=== PATIENT | male | born 1930 | race Caucasian/White ===

== ENCOUNTER 2018-04-22 10:43 | Inpatient (IN) | payer MEDICARE ==
[~2018-04-22] VITALS: Ht 172.7 cm; Wt 83.8 kg
[~2018-04-22 10:43] MED LIST: ALBU90OI6 INH; ALBU90OI61 INH; ALLO100; ALLO300 PO; ASCO500 PO; ASPI325; ASPI325 PO; ASPI81CH PO; ATEN25; ATEN50 PO; ATENOL; ATOR40TA PO; BUPR150T2; BUPR75; CHOL10002; CLOP75; DIPH50 PO; DYRENIUM PO; ESOM20; EZET10-20 PO; HYDACE5 PO; LIDO5TP TOP; MEGARED OMEGA-1 EAC1 PO; METO50ER PO; METO5A PO; MONT10T PO; MULVIT; NIFE30ER PO; Norco 5-325 Ta1 EACH PO; PANT20 PO; PRED20 PO; RABE20; SIMV10; SPIR25 PO; VITAMIN D PO; VITB100 PO; WARF5 PO; ZOCOR; [UNRECOGNIZED DRUG - OTHER] PO; vytorin
[2018-04-22 11:46] LABS: BASOPHILS ABSOLUTE AUTO 0.03 K/mm3 (0.00-0.23); BASOPHILS PERCENT AUTO 0 % (0-2); EOSINOPHILS ABSOLUTE AUTO 0.02 K/mm3 (0.00-0.68); EOSINOPHILS PERCENT AUTO 0 % (0-6); Hematocrit 35.7 % (37.0-53.0); Hemoglobin 11.6 g/dL (13.5-17.5); IMMATURE GRAN ABSOLUTE AUTO 0.07 K/mm3 (0.00-0.10); IMMATURE GRAN PERCENT AUTO 0 % (0-1); LYMPHOCYTES ABSOLUTE AUTO 0.91 K/mm3 (0.84-5.20); LYMPHOCYTES PERCENT AUTO 5 % (21-46); MONOCYTES ABSOLUTE AUTO 1.11 K/mm3 (0.16-1.47); MONOCYTES PERCENT AUTO 6 % (4-13); Mean Corpuscular HGB Conc 32.5 g/dL (31.5-36.5); Mean Corpuscular Volume 99 fL (80-100); Mean Platelet Volume 10.2 fL (9.1-12.4); NEUTROPHILS ABSOLUTE AUTO 15.51 K/mm3 (1.96-9.15); NEUTROPHILS PERCENT AUTO 88 % (41-73); Platelet Count 267 K/mm3 (150-400); RDW Standard Deviation 50.7 fL (35.1-46.3); Red Blood Cell Count 3.62 M/mm3 (4.30-5.90); White Blood Cell Count 17.65 K/mm3 (4.00-11.30)
[2018-04-22 11:59] LABS: Albumin, Blood 2.7 g/dL (3.4-5.0); Albumin/Globulin Ratio 0.8 (0.8-1.8); Bilirubin, Total 0.8 mg/dL (0.1-1.0); Bun/Creatinine Ratio 25.2 (12.0-20.0); Calcium, Blood 8.5 mg/dL (8.5-10.1); Creatinine, Blood 1.35 mg/dL (0.60-1.20); Globulin, Blood 3.3 g/dL (2.2-4.0); Potassium, Blood 4.3 mmol/L (3.5-5.5)
[2018-04-22 14:35] LABS: Prothrombin Time Results 52.1 Sec (9.7-11.5)
[2018-04-22 14:43] LABS: International Normalized Ratio 5.57
--- NOTE | 2018-04-22 14:45 | NUR ---
1435 PT ADMITTED TO MEDICAL FLOOR VIA GURNEY. PT TRANSFERED TO BED WITH 1 ASSIST. IV CIPRO INFUSING. 1442 RECIEVED CRITICAL VALUE FROM LAB INR 5.57. CN NOTIFIED. DR. GILLETTE IS YET TO ROUND ON PT.
--- NOTE | 2018-04-22 17:00 | NUR ---
SHIFT SUMMARY. A&OX4, 1 ASSIST TO BSC WITH FWW OR CANE SECONDARY TO HIP PAIN AND WEAKNESS. PT IS YET TO HAVE BM, BED ALARM ON TO ASSESS IF PT CALLS APPROPRIATELY. BOWEL TONES HYPERACTIVE, AWAITING STOOL SAMPLE FOR GI PANEL. PLACED IN CONTACT ISOLATION TO RULE OUT CDIFF/NOROVIRUS. IV FLUIDS INITIATED, PT IS TO RECIEVED 2L NS WITH KCL. BLE +2 EDEMA, PT STATES THAT HE HAS NOT TAKEN ANY OF HIS MEDICATIONS FOR 2-3 DAYS. PT REPORTS TAKEN HIS MEDICATIONS WITH FOOD AND HE HAS NOT EATEN IN 2-3 DAYS. LUNGS CLEAR, NO SOB. NO N/V, PT TOLERATED WATER AND JELLO WITHOUT ISSUE. PT STATES THAT HE LIVES HOME ALONE WITH FAMILY THAT LIVE NEAR BY. CLOSEST RELATIVE IS STEP DAUGHTER THAT LIVES IN [place], [place].
[2018-04-22 20:38] LABS: Adenovirus F 40/41 Not Detected (NOT DETECT); Astrovirus Not Detected (NOT DETECT); Campylobacter Sp Not Detected (NOT DETECT); Cryptosporidium Not Detected (NOT DETECT); Cyclospora Cayetanensis Not Detected (NOT DETECT); E. Coli O157 Not Detected (NOT DETECT); Entamoeba Histolytica Not Detected (NOT DETECT); Enteroaggregative E. coli-EAEC Not Detected (NOT DETECT); Enteropathogenic E. coli-EPEC Not Detected (NOT DETECT); Enterotoxigenic E. coli-ETEC Not Detected (NOT DETECT); Giardia Lamblia Not Detected (NOT DETECT); Norovirus GI/GII Not Detected (NOT DETECT); Plesiomonas Shigelloides Not Detected (NOT DETECT); Rotavirus A Not Detected (NOT DETECT); Salmonella Sp Not Detected (NOT DETECT); Sapovirus Not Detected (NOT DETECT); Shiga Toxin-prod E. coli-STEC Not Detected (NOT DETECT); Shigella/Enteroin E. coli-EIEC Not Detected (NOT DETECT); Vibrio Cholerae Not Detected (NOT DETECT); Vibrio Sp Not Detected (NOT DETECT); Yersinia Enterocolitica Not Detected (NOT DETECT)
[2018-04-23 05:05] LABS: BASOPHILS ABSOLUTE AUTO 0.03 K/mm3 (0.00-0.23); BASOPHILS PERCENT AUTO 0 % (0-2); EOSINOPHILS ABSOLUTE AUTO 0.05 K/mm3 (0.00-0.68); EOSINOPHILS PERCENT AUTO 0 % (0-6); Hemoglobin 10.9 g/dL (13.5-17.5); IMMATURE GRAN ABSOLUTE AUTO 0.08 K/mm3 (0.00-0.10); IMMATURE GRAN PERCENT AUTO 1 % (0-1); LYMPHOCYTES ABSOLUTE AUTO 0.68 K/mm3 (0.84-5.20); LYMPHOCYTES PERCENT AUTO 5 % (21-46); MONOCYTES ABSOLUTE AUTO 0.88 K/mm3 (0.16-1.47); MONOCYTES PERCENT AUTO 6 % (4-13); Mean Corpuscular HGB 32.1 pg (26.0-34.0); Mean Corpuscular Volume 97 fL (80-100); NEUTROPHILS ABSOLUTE AUTO 13.44 K/mm3 (1.96-9.15); NEUTROPHILS PERCENT AUTO 89 % (41-73); Platelet Count 240 K/mm3 (150-400); RDW Coefficient Variation 13.8 % (11.7-14.2); RDW Standard Deviation 49.2 fL (35.1-46.3); White Blood Cell Count 15.16 K/mm3 (4.00-11.30)
[2018-04-23 05:23] LABS: Prothrombin Time Results 58.7 Sec (9.7-11.5)
--- NOTE | 2018-04-23 05:23 | NUR ---
SHIFT SUMMARY A/O X3, ABLE TO MAKE NEEDS KNOWN. COOPERATIVE WITH CARE. CALLS AND ANSWERS QUESTIONS APPROPRIATELY. NO C/O PAIN/DISCOMFORT. APPEARD TO REST OFF AND ON DURING SHIFT. FIELD START D/C'D; NEW IV START TO RFA. STATED FELT VERY ANXIOUS BEING IN THE HOSPITAL; HAS RECENTLY LOST HIS ; ALSO HAS A CAT AT HOME THAT HE WAS WORRIED ABOUT. PT NOTABLY SHAKING AT TIME OF ASSESSMENT. RECEIVED NEW ORDER FOR PO XANAX; APPEARED TO HELP SYMPTOMS. VSS/AFEBRILE; PULSE ELEVATED THIS AM. NO ACUTE CHANGES OVERNIGHT. BED IN LOWEST POSITION. CALL LIGHT AND BELONGINGS WITHIN REACH. WCTM. REPORT TO ONCOMING RN.
[2018-04-23 05:37] LABS: Anion Gap 9 mmol/L (6-16); Blood Urea Nitrogen 25 mg/dL (8-24); Bun/Creatinine Ratio 25.9 (12.0-20.0); CO2, Blood 29 mmol/L (21-32); Calcium, Blood 8.1 mg/dL (8.5-10.1); Chloride, Blood 99 mmol/L (98-108); Creatinine, Blood 0.97 mg/dL (0.60-1.20); Glomerular Filtration Rate >60 (60-); Glucose, Blood 109 mg/dL (70-99); Potassium, Blood 3.7 mmol/L (3.5-5.5); Sodium, Blood 137 mmol/L (136-145)
[2018-04-23 06:15] LABS: International Normalized Ratio 6.33
--- NOTE | 2018-04-23 06:44 | NUR ---
0615 NOTIFIED BY LAB OF CRITICAL VALUE FOR INR. ON-CALL PHYSICIAN MADE AWARE. ORDERS TO HOLD COUMADIN FOR TODAY.
--- NOTE | 2018-04-23 18:05 | NUR ---
PATIENT PERMISSION PATIENT GAVE VERBAL CONSENT FOR MARINE FIREMAN TO PROVIDE CARE ON 04/24/2018 FROM [phone].
--- NOTE | 2018-04-23 18:14 | NUR ---
SHIFT SUMMARY. A&OX4, 1 ASSIST TO BSC AND CHAIR WITH FWW, PT IS AWARE OF LIMITATIONS AND CALLS APPROPRIATELY. PT STARTED ON PO VANCO FOR POSITIVE CDIFF, IV CIPRO D/C'D, PT CONTINUES WITH IV FLAGYL, IV HYDRATION D/C'D. PT WITH HX OF ASTHMA REQUESTED ONE BREATHING TREATMENT, PT REPORTED IMPROVEMENT. PT REPORTS GOOD RELIEF OF PAIN FROM LIDODERM PATCH, PT REPORTS USING TOPICAL CREAM FOR PAIN MANAGEMENT OF L HIP. PT/OT ORDERED, NO EVAL TODAY. ONE EPISODE OF NAUSEA WITH SMALL AMOUNT OF EMESIS THIS AM, NAUSEA RELIEVED WITH PEPPERMINT TEA. NO OTHER CHANGES OR CONCERNS.
[2018-04-24 04:55] LABS: Prothrombin Time Results 66.1 Sec (9.7-11.5)
[2018-04-24 05:02] LABS: International Normalized Ratio 7.17
--- NOTE | 2018-04-24 05:10 | NUR ---
SHIFT SUMMARY PT ADMITTED FOR COLITIS. FULL CODE. CLEAR LIQUID DIET. CONTACT ISOLATION FOR C-DIFF +. 20G IV TO R FA. PT HAS PROBLIMATIC L HIP AND REPORTS IS SCHEDULED FOR SURGERY FOR REPAIR LATER THIS MONTH. 1 PERSON ASSIST WITH TRANSFER. THE PT LIVES ALONE, HAS NO FAMILY PER REPORT, AND THE PTS PAST AWAY FROM CANCER. THE PT APPEARS TO GET VERY ANXIOUS AT TIMES. HOWEVER, NON NOTED SO FAR THIS SHIFT. PER REPORT THE PT DID HAVE SOME NAUSEA YESTERDAY AM, WICH WAS RELIEVED WITH PEPERMINT TEA PER REPORT. NONE NOTED SO FAR THIS SHIFT. THE PT PRESENTED TO THE ED WITH C/O DIARRHEA X [address] SCAN SHOWED SIGNS OF COLITIS. GI PCR PANEL WAS POSITIVE FOR C-DIFF. THE PT SEEMED IRRITATED ABOUT HIS MEDICATIONS. THE PT STATED THAT THE ONES THEY HAVE HERE ARE NOT THE SAME AT WHAT HE TAKES AT HOME AND HE DOES NOT LIKE THAT. THE PT APPEARED TO SLEEP COMFORTABLY MOST OF THE NIGHT WITH NO APPARENT SIGNS OF ACUTE DISTRESS. THE PT IS UP AT THIS TIME USING THE BSC FOR BM. ABLE TO MAKE NEEDS KNOWN AND CALL LIGHT IN REACH.
[2018-04-24 06:12] LABS: BASOPHILS ABSOLUTE AUTO 0.02 K/mm3 (0.00-0.23); BASOPHILS PERCENT AUTO 0 % (0-2); EOSINOPHILS ABSOLUTE AUTO 0.11 K/mm3 (0.00-0.68); EOSINOPHILS PERCENT AUTO 1 % (0-6); Hematocrit 31.8 % (37.0-53.0); Hemoglobin 10.6 g/dL (13.5-17.5); IMMATURE GRAN ABSOLUTE AUTO 0.05 K/mm3 (0.00-0.10); IMMATURE GRAN PERCENT AUTO 0 % (0-1); LYMPHOCYTES ABSOLUTE AUTO 0.94 K/mm3 (0.84-5.20); LYMPHOCYTES PERCENT AUTO 6 % (21-46); MONOCYTES ABSOLUTE AUTO 1.01 K/mm3 (0.16-1.47); MONOCYTES PERCENT AUTO 6 % (4-13); Mean Corpuscular HGB 32.9 pg (26.0-34.0); Mean Corpuscular HGB Conc 33.3 g/dL (31.5-36.5); Mean Corpuscular Volume 99 fL (80-100); Mean Platelet Volume 10.5 fL (9.1-12.4); NEUTROPHILS ABSOLUTE AUTO 13.75 K/mm3 (1.96-9.15); NEUTROPHILS PERCENT AUTO 87 % (41-73); Platelet Count 248 K/mm3 (150-400); RDW Coefficient Variation 13.9 % (11.7-14.2); RDW Standard Deviation 50.5 fL (35.1-46.3); Red Blood Cell Count 3.22 M/mm3 (4.30-5.90); White Blood Cell Count 15.88 K/mm3 (4.00-11.30)
[2018-04-24 06:22] LABS: Anion Gap 7 mmol/L (6-16); Blood Urea Nitrogen 16 mg/dL (8-24); Bun/Creatinine Ratio 19.3 (12.0-20.0); CO2, Blood 29 mmol/L (21-32); Calcium, Blood 7.8 mg/dL (8.5-10.1); Chloride, Blood 101 mmol/L (98-108); Creatinine, Blood 0.83 mg/dL (0.60-1.20); Glomerular Filtration Rate >60 (60-); Glucose, Blood 100 mg/dL (70-99); Potassium, Blood 3.7 mmol/L (3.5-5.5); Sodium, Blood 137 mmol/L (136-145)
--- NOTE | 2018-04-24 17:41 | NUR ---
SUMMARY PT SITTING UP IN BED WATCHING TV, PT HAS BEEN COOPERATIVE WITH CARE T/O THE DAY, PT ABLE TO GET UP WITH 1PERSON ASSIST, IS VERY SLOW IN ALL HIS ADL'S, PT/OT HAVE WORKED WITH THE PT WELL, PT STILL HAVING LOOSE STOOLS, DR GILLETTE NOTIFIED OF THE PT'S INR THIS MORNING, ASPRIN HELD, NO NEW ORDERS, PT REPORTS HE DOES NOT WANT TO GO TO [facility] AT DISCHARGE BECAUSE HE WILL BE GOING NEXT MONTH AFTER HIS HIP SURGERY, PT REPORTED BEING AGREEABLE TO HOME HEALTH, WILL NOTIFY CARE MANAGEMENT/DISCHARGE PLANNING, NO ACUTE CHANGES, WILL CONT TO MONITOR
--- NOTE | 2018-04-24 18:49 | NUR ---
Mr. Foss was welcoming of visit. We had a long conversation about his who passed @1year ago. He was often tearful throughout conversation, but responded well to gentle addictions counselor assistant and grief education. He is trying to maintain his independance and is awaiting hip replacement. He feels well suppported by neighbors, but says he is very lonely and rarely goes out. We had an easy rapport. I prayed for Mr. Foss and offered continued support. I provided my card at his request. By end of visit, he appeared brighter and smiled easily. I will remain available.
--- NOTE | 2018-04-25 03:57 | NUR ---
SHIFT SUMMARY NO APPARENT ACUTE CHANGES NOTED SO FAR THIS SHIFT. THE PT CONTINUES TO HAVE MULTIPLE WATERY STOOLS AND HAD SEVERAL ACCIDENTS IN BED SO FAR THIS SHIFT. PT APPEARS TO BE HAVING A VERY DIFFICULT TIME MAKE IT TO THE BSC. THE PT IS WORRIED ABOUT HIS CAT. THE PT STATED THAT HE HAD SOMEONE WHO WAS GOING TO LOOK AFTER THE CAT BUT HE HAS NOT BEEN ABLE TO CONTACT THE PERSON DUE TO HIS PHONE BEING AND NOT HAVING A RISK ANALYST THAT WILL FIT. THE PT IS ANXIOUS TO GET HOME TO HIS CAT AND RETURN TO HIS LIFE. NO APPARENT SIGNS OF ACUTE DISTRESS. ABLE TO MAKE NEEDS KNOWN AND CALL LIGHT IN REACH.
[2018-04-25 05:04] LABS: BASOPHILS ABSOLUTE AUTO 0.02 K/mm3 (0.00-0.23); BASOPHILS PERCENT AUTO 0 % (0-2); EOSINOPHILS PERCENT AUTO 3 % (0-6); Hematocrit 32.4 % (37.0-53.0); Hemoglobin 10.7 g/dL (13.5-17.5); IMMATURE GRAN ABSOLUTE AUTO 0.04 K/mm3 (0.00-0.10); IMMATURE GRAN PERCENT AUTO 0 % (0-1); LYMPHOCYTES ABSOLUTE AUTO 1.16 K/mm3 (0.84-5.20); LYMPHOCYTES PERCENT AUTO 11 % (21-46); MONOCYTES ABSOLUTE AUTO 0.79 K/mm3 (0.16-1.47); MONOCYTES PERCENT AUTO 7 % (4-13); Mean Corpuscular HGB 31.8 pg (26.0-34.0); NEUTROPHILS ABSOLUTE AUTO 8.68 K/mm3 (1.96-9.15); NEUTROPHILS PERCENT AUTO 79 % (41-73); Platelet Count 255 K/mm3 (150-400); RDW Standard Deviation 49.7 fL (35.1-46.3); Red Blood Cell Count 3.36 M/mm3 (4.30-5.90); White Blood Cell Count 10.99 K/mm3 (4.00-11.30)
[2018-04-25 05:07] LABS: Mean Corpuscular Volume 96 fL (80-100)
[2018-04-25 05:22] LABS: Prothrombin Time Results 52.2 Sec (9.7-11.5)
[2018-04-25 05:24] LABS: International Normalized Ratio 5.59
[2018-04-25 05:35] LABS: Anion Gap 5 mmol/L (6-16); Blood Urea Nitrogen 17 mg/dL (8-24); Bun/Creatinine Ratio 19.4 (12.0-20.0); CO2, Blood 30 mmol/L (21-32); Calcium, Blood 7.8 mg/dL (8.5-10.1); Chloride, Blood 101 mmol/L (98-108); Creatinine, Blood 0.88 mg/dL (0.60-1.20); Glomerular Filtration Rate >60 (60-); Glucose, Blood 95 mg/dL (70-99); Sodium, Blood 136 mmol/L (136-145)
[2018-04-25] MEDS ORDERED: SACC250C PO (12:26)
[2018-04-25] MEDS ORDERED: POLY500 PO (12:26)
[2018-04-25] MEDS ORDERED: VANC125 PO (12:27)
--- NOTE | 2018-04-25 15:34 | NUR ---
SUMMARY/DISCHARGE PT BEING DISCHARGED TO HOME, PT VERBALIZED UNDERSTANDING OF DISCHARGE INSTRUCTIONS REGARDING MEDICATIONS AND FOLLOW UP APPOINTMENTS, PT WILL BE GETTING HOME HEALTH, CARE MANAGEMENT IS ARRANGING, [facility] HERE TO VESSEL TRAFFIC OFFICER THE PT VIA WHEELCHAIR
== END 2018-04-25 15:46 | disposition home health service (06) | DRG 373 ==
LOC: ER 10:43 → MEDS 13:54 → ENPENDDIS 04-25 11:14 → MEDS 04-25 15:46
PROVIDERS: Internal Medicine; ADMIT Hospitalist
DX: A04.72 Enterocolitis due to Clostridium difficile, not specified as recurrent (principal); I10 Essential (primary) hypertension; M10.9 Gout, unspecified; K21.9 Gastro-esophageal reflux disease without esophagitis; I48.91 Unspecified atrial fibrillation; E86.0 Dehydration; M16.12 Unilateral primary osteoarthritis, left hip; Z88.1 Allergy status to other antibiotic agents; Z88.5 Allergy status to narcotic agent; Z88.0 Allergy status to penicillin; Z88.8 Allergy status to other drugs, medicaments and biological substances; Z79.01 Long term (current) use of anticoagulants; Z79.82 Long term (current) use of aspirin; Z79.899 Other long term (current) drug therapy; Z95.5 Presence of coronary angioplasty implant and graft; Z95.1 Presence of aortocoronary bypass graft; Z87.891 Personal history of nicotine dependence
CPT/HCPCS: 36415; 74176; 80048; 80053; 83605; 85025; 85610; 87040; 87507; 94640; 94760; 96361; 96365; 96375; 97110; 97116; 97162; 97166; 97530; 97535; 99285-25; J0744; J3480; J7050; J7120

== ENCOUNTER → 2018-05-11 | Outpatient (CLI) | payer MEDICARE ==
[~2018-05-11] MED LIST changes: +POLY500 PO; +POTA20PAC PO; +Prozac20 MG PO; +SACC250C PO; +VANC125 PO
== END ==
LOC: LAB SHORT 17:29 → LAB 17:29
DX: R19.7 Diarrhea, unspecified (principal)
CPT/HCPCS: 87493

== ENCOUNTER 2018-05-13 13:23 | Emergency (ER) | payer MEDICARE ==
[~2018-05-13] VITALS: Ht 172.7 cm; Wt 81.7 kg
[~2018-05-13 13:23] MED LIST changes: -POTA20PAC PO; -Prozac20 MG PO
[2018-05-13 14:21] LABS: BASOPHILS ABSOLUTE AUTO 0.03 K/mm3 (0.00-0.23); BASOPHILS PERCENT AUTO 0 % (0-2); EOSINOPHILS ABSOLUTE AUTO 0.02 K/mm3 (0.00-0.68); EOSINOPHILS PERCENT AUTO 0 % (0-6); Hematocrit 33.8 % (37.0-53.0); Hemoglobin 11.2 g/dL (13.5-17.5); IMMATURE GRAN ABSOLUTE AUTO 0.09 K/mm3 (0.00-0.10); IMMATURE GRAN PERCENT AUTO 1 % (0-1); LYMPHOCYTES ABSOLUTE AUTO 1.09 K/mm3 (0.84-5.20); LYMPHOCYTES PERCENT AUTO 8 % (21-46); MONOCYTES ABSOLUTE AUTO 0.92 K/mm3 (0.16-1.47); MONOCYTES PERCENT AUTO 7 % (4-13); Mean Corpuscular HGB 32.9 pg (26.0-34.0); Mean Corpuscular HGB Conc 33.1 g/dL (31.5-36.5); Mean Corpuscular Volume 99 fL (80-100); NEUTROPHILS ABSOLUTE AUTO 11.66 K/mm3 (1.96-9.15); NEUTROPHILS PERCENT AUTO 84 % (41-73); Platelet Count 286 K/mm3 (150-400); RDW Coefficient Variation 14.7 % (11.7-14.2); RDW Standard Deviation 53.7 fL (35.1-46.3); White Blood Cell Count 13.81 K/mm3 (4.00-11.30)
[2018-05-13 14:46] LABS: Alanine Aminotransfer (ALT/SGP 30 U/L (12-78); Albumin, Blood 2.8 g/dL (3.4-5.0); Albumin/Globulin Ratio 0.7 (0.8-1.8); Alk Phos 125 U/L (50-136); Anion Gap 8 mmol/L (6-16); Aspartate Aminotrans (AST/SGOT 42 U/L (12-37); Bilirubin, Total 0.8 mg/dL (0.1-1.0); Blood Urea Nitrogen 35 mg/dL (8-24); Bun/Creatinine Ratio 32.7 (12.0-20.0); CO2, Blood 34 mmol/L (21-32); Calcium, Blood 8.4 mg/dL (8.5-10.1); Chloride, Blood 97 mmol/L (98-108); Creatinine, Blood 1.07 mg/dL (0.60-1.20); Globulin, Blood 3.9 g/dL (2.2-4.0); Glomerular Filtration Rate >60 (60-); Glucose, Blood 96 mg/dL (70-99); Potassium, Blood 2.7 mmol/L (3.5-5.5); Sodium, Blood 139 mmol/L (136-145); Total Protein, Blood 6.7 g/dL (6.4-8.2)
[2018-05-13] MEDS ORDERED: Prozac20 MG PO (14:48)
[2018-05-13 15:25] LABS: International Normalized Ratio 1.48; Prothrombin Time Results 15.1 Sec (9.7-11.5)
[2018-05-13] MEDS ORDERED: POTA20PAC PO (16:06)
== END 2018-05-13 16:15 | disposition home or self-care (01) ==
LOC: ER 13:23
PROVIDERS: Emergency Medicine; Physician Assistant
DX: E87.6 Hypokalemia (principal); E86.0 Dehydration; R19.7 Diarrhea, unspecified; I48.91 Unspecified atrial fibrillation; Z88.0 Allergy status to penicillin; Z88.8 Allergy status to other drugs, medicaments and biological substances; Z88.1 Allergy status to other antibiotic agents; Z88.5 Allergy status to narcotic agent; Z79.899 Other long term (current) drug therapy; Z79.82 Long term (current) use of aspirin; Z79.01 Long term (current) use of anticoagulants
CPT/HCPCS: 36415; 80053; 83735; 85025; 85610; 96360; 99284-25; J7030

== ENCOUNTER → 2018-05-30 | Outpatient (CLI) | payer MEDICARE ==
[~2018-05-30] MED LIST changes: +POTA20PAC PO; +Prozac20 MG PO
[2018-05-31 09:24] LABS: C DIFFICILE BY DNA AMP Positive (Negative)
== END | disposition home or self-care (01) ==
LOC: LAB 18:55 → LAB SHORT 18:55
PROVIDERS: Family Medicine
DX: A04.71 Enterocolitis due to Clostridium difficile, recurrent (principal)
CPT/HCPCS: 87324; 87493

== ENCOUNTER 2018-07-17 10:26 | Emergency (ER) | payer MEDICARE ==
[~2018-07-17] VITALS: Ht 172.7 cm; Wt 86.2 kg
[2018-07-17 11:51] LABS: BASOPHILS ABSOLUTE AUTO 0.03 K/mm3 (0.00-0.23); BASOPHILS PERCENT AUTO 1 % (0-2); EOSINOPHILS ABSOLUTE AUTO 0.18 K/mm3 (0.00-0.68); EOSINOPHILS PERCENT AUTO 3 % (0-6); Hematocrit 33.8 % (37.0-53.0); Hemoglobin 10.8 g/dL (13.5-17.5); IMMATURE GRAN ABSOLUTE AUTO 0.06 K/mm3 (0.00-0.10); IMMATURE GRAN PERCENT AUTO 1 % (0-1); LYMPHOCYTES ABSOLUTE AUTO 1.67 K/mm3 (0.84-5.20); LYMPHOCYTES PERCENT AUTO 28 % (21-46); MONOCYTES ABSOLUTE AUTO 0.79 K/mm3 (0.16-1.47); MONOCYTES PERCENT AUTO 13 % (4-13); Mean Corpuscular HGB 30.6 pg (26.0-34.0); Mean Corpuscular Volume 96 fL (80-100); Mean Platelet Volume 10.3 fL (9.1-12.4); NEUTROPHILS ABSOLUTE AUTO 3.22 K/mm3 (1.96-9.15); NEUTROPHILS PERCENT AUTO 54 % (41-73); Platelet Count 220 K/mm3 (150-400); RDW Standard Deviation 52.5 fL (35.1-46.3); Red Blood Cell Count 3.53 M/mm3 (4.30-5.90); White Blood Cell Count 5.95 K/mm3 (4.00-11.30)
[2018-07-17 12:20] LABS: Alanine Aminotransfer (ALT/SGP 27 U/L (12-78); Albumin, Blood 2.5 g/dL (3.4-5.0); Albumin/Globulin Ratio 0.7 (0.8-1.8); Alk Phos 135 U/L (50-136); Anion Gap 2 mmol/L (6-16); Aspartate Aminotrans (AST/SGOT 40 U/L (12-37); Bilirubin, Total 0.8 mg/dL (0.1-1.0); Blood Urea Nitrogen 20 mg/dL (8-24); Bun/Creatinine Ratio 24.7 (12.0-20.0); CO2, Blood 39 mmol/L (21-32); Calcium, Blood 8.3 mg/dL (8.5-10.1); Chloride, Blood 95 mmol/L (98-108); Creatinine, Blood 0.81 mg/dL (0.60-1.20); Globulin, Blood 3.7 g/dL (2.2-4.0); Glomerular Filtration Rate >60 (60-); Glucose, Blood 87 mg/dL (70-99); Potassium, Blood 3.5 mmol/L (3.5-5.5); Sodium, Blood 136 mmol/L (136-145); Total Protein, Blood 6.2 g/dL (6.4-8.2)
== END 2018-07-17 15:57 | disposition home or self-care (01) ==
LOC: ER 10:26
PROVIDERS: Emergency Medicine
DX: E86.0 Dehydration (principal); R19.7 Diarrhea, unspecified; I48.91 Unspecified atrial fibrillation; Z95.1 Presence of aortocoronary bypass graft; Z88.0 Allergy status to penicillin; Z88.1 Allergy status to other antibiotic agents; Z88.5 Allergy status to narcotic agent; Z79.82 Long term (current) use of aspirin; Z79.899 Other long term (current) drug therapy
CPT/HCPCS: 36415; 80053; 85025; 96365; 99284-25; J7030

== ENCOUNTER 2018-07-31 08:00 | Inpatient (IN) | payer MEDICARE ==
[~2018-07-31] VITALS: Ht 172.7 cm; Wt 94.7 kg
[2018-07-31 08:41] LABS: BASOPHILS ABSOLUTE AUTO 0.03 K/mm3 (0.00-0.23); BASOPHILS PERCENT AUTO 0 % (0-2); EOSINOPHILS ABSOLUTE AUTO 0.01 K/mm3 (0.00-0.68); EOSINOPHILS PERCENT AUTO 0 % (0-6); Hematocrit 38.3 % (37.0-53.0); Hemoglobin 11.9 g/dL (13.5-17.5); IMMATURE GRAN ABSOLUTE AUTO 0.13 K/mm3 (0.00-0.10); IMMATURE GRAN PERCENT AUTO 1 % (0-1); LYMPHOCYTES ABSOLUTE AUTO 0.52 K/mm3 (0.84-5.20); LYMPHOCYTES PERCENT AUTO 3 % (21-46); MONOCYTES ABSOLUTE AUTO 0.81 K/mm3 (0.16-1.47); MONOCYTES PERCENT AUTO 4 % (4-13); Mean Corpuscular HGB 29.9 pg (26.0-34.0); Mean Corpuscular HGB Conc 31.1 g/dL (31.5-36.5); Mean Corpuscular Volume 96 fL (80-100); Mean Platelet Volume 9.9 fL (9.1-12.4); NEUTROPHILS ABSOLUTE AUTO 17.77 K/mm3 (1.96-9.15); NEUTROPHILS PERCENT AUTO 92 % (41-73); Platelet Count 344 K/mm3 (150-400); RDW Standard Deviation 56.6 fL (35.1-46.3); Red Blood Cell Count 3.98 M/mm3 (4.30-5.90); White Blood Cell Count 19.27 K/mm3 (4.00-11.30)
[2018-07-31 09:03] LABS: Alanine Aminotransfer (ALT/SGP 28 U/L (12-78); Albumin, Blood 2.6 g/dL (3.4-5.0); Albumin/Globulin Ratio 0.6 (0.8-1.8); Alk Phos 125 U/L (50-136); Anion Gap 1 mmol/L (6-16); Aspartate Aminotrans (AST/SGOT 42 U/L (12-37); Bilirubin, Total 0.7 mg/dL (0.1-1.0); Blood Urea Nitrogen 34 mg/dL (8-24); Bun/Creatinine Ratio 35.1 (12.0-20.0); CO2, Blood 39 mmol/L (21-32); Calcium, Blood 8.5 mg/dL (8.5-10.1); Chloride, Blood 102 mmol/L (98-108); Creatinine, Blood 0.97 mg/dL (0.60-1.20); Glomerular Filtration Rate >60 (60-); Glucose, Blood 111 mg/dL (70-99); Magnesium, Blood 2.1 mg/dL (1.6-2.4); Potassium, Blood 3.9 mmol/L (3.5-5.5); Sodium, Blood 142 mmol/L (136-145); Total Protein, Blood 6.6 g/dL (6.4-8.2)
[2018-07-31 09:05] LABS: International Normalized Ratio 1.79
[2018-07-31 09:50] LABS: Source, Urine Voided
[2018-07-31] MEDS ORDERED: LO-DOSE ASPIRIN81 MG PO (09:50)
[2018-07-31] MEDS ORDERED: ACET325 PO (09:52)
[2018-07-31] MEDS ORDERED: TUMS500 MG PO (09:52)
[2018-07-31] MEDS ORDERED: CEPACOL SORE T1 EACH MM (09:52)
[2018-07-31] MEDS ORDERED: CHOL10002 PO (09:52)
[2018-07-31] MEDS ORDERED: PANT40 PO (09:53)
[2018-07-31] MEDS ORDERED: WARF5 PO (09:53)
[2018-07-31] MEDS ORDERED: ATOR40TA PO (09:53)
[2018-07-31] MEDS ORDERED: BENADRYL25 MG PO (09:53)
[2018-07-31] MEDS ORDERED: LIDO700A20 TD (09:55)
[2018-07-31] MEDS ORDERED: METO50 PO (09:56)
[2018-07-31] MEDS ORDERED: Fluoxetine HCl20 M1 PO (09:56)
[2018-07-31] MEDS ORDERED: ALLO300 PO ×2 (09:56→09:58)
[2018-07-31 09:57] LABS: Bilirubin, Urine Neg (Neg); Blood, Urine 3+ (Neg); Glucose Qualitative, Urine Neg (Neg); Ketones, Urine Neg (Neg); Leukocyte Esterase, Urine 2+ (Neg); Nitrite, Urine Neg (Neg); Protein, Urine Neg (Neg); Specific Gravity, Urine 1.015 (1.003-1.022); Urobilinogen, Urine NORM (Normal)
[2018-07-31] MEDS ORDERED: MONT10T PO (09:57)
[2018-07-31] MEDS ORDERED: TORSE20 PO (09:57)
[2018-07-31] MEDS ORDERED: PREG50 PO (09:57)
[2018-07-31] MEDS ORDERED: Flonase 0.05% N16 GM (09:57)
[2018-07-31 09:58] LABS: C DIFFICILE BY DNA AMP Positive (Negative)
[2018-07-31 10:07] LABS: Appearance, Urine Hazy (Clear); Color, Urine Yellow (P-Yellow)
[2018-07-31 10:11] LABS: Bacteria Mod /hpf; Mucus Light (0-Heavy); Squamous Epithelial Cells Not Seen /hpf (Few)
[2018-07-31 11:26] LABS: Adenovirus F 40/41 Not Detected (NOT DETECT); Astrovirus Not Detected (NOT DETECT); Campylobacter Sp Not Detected (NOT DETECT); Cryptosporidium Not Detected (NOT DETECT); Cyclospora Cayetanensis Not Detected (NOT DETECT); E. Coli O157 Not Detected (NOT DETECT); Entamoeba Histolytica Not Detected (NOT DETECT); Enteroaggregative E. coli-EAEC Not Detected (NOT DETECT); Enteropathogenic E. coli-EPEC Not Detected (NOT DETECT); Enterotoxigenic E. coli-ETEC Not Detected (NOT DETECT); Giardia Lamblia Not Detected (NOT DETECT); Norovirus GI/GII Not Detected (NOT DETECT); Plesiomonas Shigelloides Not Detected (NOT DETECT); Rotavirus A Not Detected (NOT DETECT); Salmonella Sp Not Detected (NOT DETECT); Sapovirus Not Detected (NOT DETECT); Shiga Toxin-prod E. coli-STEC Not Detected (NOT DETECT); Shigella/Enteroin E. coli-EIEC Not Detected (NOT DETECT); Vibrio Cholerae Not Detected (NOT DETECT); Vibrio Sp Not Detected (NOT DETECT); Yersinia Enterocolitica Not Detected (NOT DETECT)
--- NOTE | 2018-07-31 14:10 | NUR ---
ASSUMED CARE: PT TRANSFERRED FROM ED FOR AFIB WITH RVR DUE TO CDIFF INFECTION. PT AWARE THAT FLAGYL RUNNING THAT ED STARTED. PT'S NEIGHBOR AT BEDSIDE. PT'S HR IN 120S PRIOR TO CARDIZEM GTT STARTED
[2018-07-31] MEDS ORDERED: ALBU90OI61 INH (15:00)
--- NOTE | 2018-07-31 15:19 | NUR ---
OFFERED PT PO VANCO. PT REFUSED. HE STATES HE IS DONE WITH THE ANTIBIOTICS DUE TO HAVING MULTIPLE OUTPT ROUNDS THAT INFECTION KEEPS COMING BACK. STATES HE DOES NOT WANT TO TRY VANCO OR FLAGYL ANYMORE. PT SAID HE HEARD ABOUT HOSPICE. ATTEMPTED TO EDUCATED PT ABOUT COMFORT CARE AND HOSPICE. VISITOR AT BEDSIDE SAID, TO GET STRAIGHT TO THE POINT, IT MEANS YOU ARE GOING TO GO HOME AND . PT THEN STATED HE DID NOT FEEL READY TO MAKE THAT DECISION. INFORMED PT THAT HOSPICE DOES NOT MEAN HE WILL NECESSARILY RIGHT AWAY, THAT THE GOAL IS COMFORT. CALL TO DR QUIÑONES TO MAKE HIM AWARE THAT PT IS REFUSING ANTIBIOTICS. CALL TO PALLIATIVE CARE WHO STATES THEY WILL COME BY TO SEE PT AFTER REVIEWING CHART. PT AGREES TO CONTINUING CARDIZEM AT THIS TIME. HR IS CURRENTLY IN 80S-90S AFIB WITH CARDIZEM GTT AT 5MG/ML
--- NOTE | 2018-07-31 17:48 | NUR ---
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 Nursing contacted PC as pt is refusing antibiotics and talking about just wanting to go home and not do anymore treatments. 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 He reports that he has been on three rounds of antibiotics and he still has problems with the diarrhea returning. He reports he is simply "existing, not living." He reports he lives alone with his cat and says that prior to the wrist injury and antibiotics which he believes started the c-diff he was independent. He reports now he is mostly wc bound. He has caregiver assistance and has a lumber stacker driver. He couldn't tell me how many hours of caregiving he gets each week. He was about 1 1/2 years ago after being for 40 years. He admits that going home and dying sounds like a good alternative to continuing to exist with the c-diff and diarrhea. He states he no longer wants to take the antibiotics that make him "really crazy." He reports that jayshree gave him "blocks of my life, big blocks, little blocks." He describes vivid visual hallucinations which were very distrubing to him which including jumping back and forth to different periods of his life. Talked about what his wishes were and explored options for care. He states that if his quality of life would be able to improve that he would like to try to improve it. Discussed options of continued antibiotic therapy as he has done in the past, the possibility of a GI consult to explore the possibility of a fecal transplant, and stopping all treatment for c-diff and going home possibly with hospice services. Discussed the pros and cons of each treatment option and pt stated that he wasn't ready to if his quality of life could improve. He is not interested in repeating the antibiotics like before is the c-diff will "just come back." He is interested in pursing a GI consult for information about the fecal transplant. Explained to him that he would need to be compliant with treatments to see if he could potentially qualify for a fecal transplant. Pt is currently being treated with a cardizem gtt for a-fib. Explained to him that the a-fib would need to be under control as one of the first steps. Explained to him that he would need to comply with antibiotics. He was open to accepting vancomycin, however her stated he did not want to take flagyl anymore. Discussed code status options and asked him to consider full code vs. DNR. He states he will think about it and have an answer to his code status tomorrow. He is aware that at this time he is a full code. Discussed long road to recovery if fecal transplant turns out to be an option for him. He is very weak and has lost most of his independence. Josias states that he would like to pursue the fecal transplant option. Updated Dr. Dillon and nursing re: pt's wishes. PC will continue to follow Josias for symptom managment and continued care planning. Will also re-address code status with Josias after he has had some time to consider options.
--- NOTE | 2018-07-31 18:49 | NUR ---
SHIFT SUMMARY: DR DUARTE IN ROOM WITH PT AT THIS TIME. PT REMAINS ON BIPAP, SETTINGS 15/10 WITH 35% FIO2. BILATERAL WRIST RESTRAINTS. PRECEDEX OFF. SEEMS MORE CLEAR THIS EVENING. NO FURTHER NEEDS OR CONCERNS
--- NOTE | 2018-07-31 19:11 | NUR ---
REPORT CALLED TO LEIA YOON IN PCU. PT'S DAUGHTER ALSO AWARE THAT PT HAS BEEN TRANSFERRED TO ROOM PCU 11. ICU MANAGER FAST FOOD AWARE THAT PT IS ABLE TO MOVE WHEN THEY ARE READY TO TRANSPORT
--- NOTE | 2018-07-31 19:13 | NUR ---
SHIFT SUMMARY: PT REMAINS ON 5MG/ML CARDIZEM GTT, PALLIATIVE CARE SPOKE WITH PT ABOUT OPTIONS DUE TO PT BEING DEPRESSED ABOUT CONTINUED CDIFF AND REPEATED TREATMENTS FOR IT. PALLIATIVE CARE RN MADE DR AWARE THAT PT WISHES TO PURSUE FECAL TRANSPLANT. PT RESTING IN BED, REQUESTING BREATHING TX, RT AWARE
--- NOTE | 2018-07-31 20:00 | NUR ---
ASSUMED CARE- PT TRANSFERRED TO ROOM 11 AT APPROXIMATELY 1950. AOX4. VSS. PT RESTING IN BED AT THIS TIME WITH RECTAL TUBE IN PLACE, NO STOOL NOTED IN DRAINAGE BAG AT THIS TIME, BUT LEAKING AROUND TUBE NOTED- PT CLEANED AND LINENS CHANGED. PT DAUGHTER CALLED ANS SPOKE WITH RN ABOUT CONCERNS REGARDING PT- FAMILY MEMBER REASSURED ABOUT PATIENT CARE AND TREATMENTS BEING PROVIDED. PT EXPRESSING CONCERNS WITH PROGNOSIS AND CURRENT METHOD OF TREATMENT. PT UNSURE OF WHETHER OR NOT HE WANTS TO CONTINUE WITH CURRENT TREATMENT OF ANTIBIOTICS, BUT IS VERY HOPEFUL ABOUT FECAL TRANSPLANT OPTION. WILL CONTINUE WITH ASSESSMENT AND MONITORING. BED IN LOW POSITION, CALL LIGHT IN REACH.
[2018-08-01 05:06] LABS: BASOPHILS ABSOLUTE AUTO 0.03 K/mm3 (0.00-0.23); BASOPHILS PERCENT AUTO 0 % (0-2); EOSINOPHILS ABSOLUTE AUTO 0.02 K/mm3 (0.00-0.68); EOSINOPHILS PERCENT AUTO 0 % (0-6); Hematocrit 32.3 % (37.0-53.0); Hemoglobin 9.9 g/dL (13.5-17.5); IMMATURE GRAN PERCENT AUTO 1 % (0-1); LYMPHOCYTES ABSOLUTE AUTO 1.25 K/mm3 (0.84-5.20); LYMPHOCYTES PERCENT AUTO 8 % (21-46); MONOCYTES ABSOLUTE AUTO 1.48 K/mm3 (0.16-1.47); MONOCYTES PERCENT AUTO 9 % (4-13); Mean Corpuscular HGB 29.8 pg (26.0-34.0); Mean Corpuscular HGB Conc 30.7 g/dL (31.5-36.5); Mean Corpuscular Volume 97 fL (80-100); Mean Platelet Volume 10.3 fL (9.1-12.4); NEUTROPHILS ABSOLUTE AUTO 13.16 K/mm3 (1.96-9.15); NEUTROPHILS PERCENT AUTO 82 % (41-73); Platelet Count 302 K/mm3 (150-400); RDW Coefficient Variation 16.2 % (11.7-14.2); RDW Standard Deviation 57.8 fL (35.1-46.3); Red Blood Cell Count 3.32 M/mm3 (4.30-5.90); White Blood Cell Count 16.04 K/mm3 (4.00-11.30)
[2018-08-01 05:20] LABS: International Normalized Ratio 2.09; Prothrombin Time Results 20.7 Sec (9.7-11.5)
[2018-08-01 05:22] LABS: Anion Gap 4 mmol/L (6-16); Blood Urea Nitrogen 31 mg/dL (8-24); Bun/Creatinine Ratio 33.5 (12.0-20.0); CO2, Blood 34 mmol/L (21-32); Calcium, Blood 7.7 mg/dL (8.5-10.1); Chloride, Blood 105 mmol/L (98-108); Creatinine, Blood 0.93 mg/dL (0.60-1.20); Glomerular Filtration Rate >60 (60-); Glucose, Blood 85 mg/dL (70-99); Potassium, Blood 3.4 mmol/L (3.5-5.5); Sodium, Blood 143 mmol/L (136-145)
--- NOTE | 2018-08-01 07:28 | NUR ---
SHIFT SUMMARY PT HAS REMAINED AOX4 THROUGHOUT SHIFT. PLEASANT AND COOPERATIVE WITH CARE. PT REMAINS ON BEDREST THROUGHOUT THE NIGHT AND HAS RESTED WELL. PT CONTINUES TO EXPRESS CONCERNS ABOUT CONTINUING WITH ANTIBIOTICS, STATING THAT THEY MAKE HIM MENTALLY FUZZY, BUT FEELS CONTINUES TO FEEL HOPEFUL ABOUT FECAL TRANSPLANT. CARDIZEM DRIP PLACED ON STANDBY AT 0020 THIS AM DUE TO HEART RATE IN THE 60'S- HAS SUSTAINED <90 THROUGHOUT REMAINDER OF SHIFT. RECTAL TUBE REMAINS IN PLACE AND DRAINING TO GRAVITY WITH MINIMAL LEAKAGE AROUND TUBE. NO OTHER CHANGES FROM INITIAL ASSESSMENT. WILL CONTINUE TO MONITOR AND REPORT TO ONCOMING SHIFT RN. BED IN LOW POSITION, CALL LIGHT IN REACH.
--- NOTE | 2018-08-01 13:51 | NUR ---
BEGINNING OF SHIFT Assumed care of pt at 0700. Report received from Cherry YOON. Pt on 2 LPM NC, titrated down to 1.5 LPM at this time. At beginning of shift, pt tearful, stating "I don't have much longer left. I don't think I have six months left." Pt mentions he is considering hospice. This RN inquires about pt's living situation. Pt states he lives alone at home, since his spouse 1.5 years ago from cancer. Pt states he does not have any family that lives local. Dr Dillon in to see pt. Plan of care thoroughly discussed with patient. Pt states strong desire to go home "tomorrow" and also states strong desire for "fecal transplant". Pt educated by provider that pt needs to comply with taking antibiotics to manage C Diff before fecal transplantation considered. Pt verbalizes understanding. Pt's [id number], Bridgette, called unit requesting update on pt. Pt gave verbal consent for this RN to speak with Bridgette. Bridgette verbalized understanding of plan of care and stated her questions had been answered. Pt had chest CT to follow up on XRay obtained 07/31. Dr Dillon discussed results with pt. Bed in lowest position. Call light in reach. Pt denies need at this time. At this time, pt laying in bed, sleeping. Rectal tube remains in place, draining to gravity. No leaks noted.
--- NOTE | 2018-08-01 15:45 | NUR ---
Met with Josias this afternoon to discuss his goal of care. He was having a conversation with his dtr on speaker phone while I was getting ready to visit him. His dtr was asking him for money to pay some of her bills. He said "How do I know you aren't taking advantage of me? I need to think about it." Pt told her that he might not be around much longer and she would get his money then. She stated that no, he had "At least ten more years to live" and she said that she was not trying to take advantage of him. After Josias ended his conversation with Bridgette, his stepdaughter, I was able to meet with him. Nursing reports he has been waivering between wanting to seek treatment and stopping treatment and going home. Pt appeared upbeat and said "I have a plan in place." Asked him what his plan was. He stated that he wanted to have the fecal transplant done. He states Bridgette is coming from [place] tomorrow to visit him. He did not know how long she was planning to stay or if she would be able to assist him at home if he was discharged soon. He is hopeful that he can be sent to [place] to have the fecal transplant done directly from [facility]. Explained to him that will need to continue antibiotics and may likely be discharged and follow up with GI as an outpatient. Asked him if he had thought about what he would like to do if he isn't able to have the fecal transplant. He told me that "That isn't an option." Tried to broach the subject of needing extra assistance at home or possibly going to rehab to get stronger before going home. He dismissed my questions and said "We'll cross that bridge when we need to." Reviewed code status and he reports that he would like to continue to be a full code at this time. PC will continue to follow for symptom management and care planning. Pt had no complaints of pain, anxiety or SOB during my visit today.
--- NOTE | 2018-08-01 18:41 | NUR ---
SHIFT SUMMARY No acute changes since last note. Pt has been in a better mood than he was this morning. No events per telemetry. Pt tolerating full liquids well. Will continue to closely monitor until care handoff and bedside report with oncoming RN.
--- NOTE | 2018-08-01 22:29 | NUR ---
2230 PT ARRIVED VIA BED FROM PCU, PLACED IN CONTACT ISOLATION FOR C-DIFF.
--- NOTE | 2018-08-02 05:05 | NUR ---
87 Y/O MALE RESTED COMFORTABLY ALL EVENING AFTER TRANSFER FROM PCU. PT ALERT AND ORIENTED X3. THIS NURSE REMOVED SL LAC, SITE RED, PRESSURE DRESSING APPLIED WITH COBAN. PT DENIES PAIN OR NAUSEA. RECTAL TUBE DRAINING BROWN STOOL. CONTACT ISOLATION MAINTAINED. PTS BED ALARM APPLIED, CALL LIGHT AT SIDE, BED IN LOW POSITION.
[2018-08-02 05:25] LABS: BASOPHILS ABSOLUTE AUTO 0.01 K/mm3 (0.00-0.23); BASOPHILS PERCENT AUTO 0 % (0-2); EOSINOPHILS PERCENT AUTO 1 % (0-6); Hematocrit 37.6 % (37.0-53.0); Hemoglobin 11.2 g/dL (13.5-17.5); IMMATURE GRAN ABSOLUTE AUTO 0.14 K/mm3 (0.00-0.10); IMMATURE GRAN PERCENT AUTO 1 % (0-1); LYMPHOCYTES ABSOLUTE AUTO 1.57 K/mm3 (0.84-5.20); LYMPHOCYTES PERCENT AUTO 10 % (21-46); MONOCYTES ABSOLUTE AUTO 1.01 K/mm3 (0.16-1.47); MONOCYTES PERCENT AUTO 6 % (4-13); Mean Corpuscular HGB 29.8 pg (26.0-34.0); Mean Corpuscular HGB Conc 29.8 g/dL (31.5-36.5); Mean Platelet Volume 10.1 fL (9.1-12.4); NEUTROPHILS ABSOLUTE AUTO 13.32 K/mm3 (1.96-9.15); NEUTROPHILS PERCENT AUTO 82 % (41-73); Platelet Count 364 K/mm3 (150-400); RDW Coefficient Variation 16.3 % (11.7-14.2); RDW Standard Deviation 60.3 fL (35.1-46.3); Red Blood Cell Count 3.76 M/mm3 (4.30-5.90); White Blood Cell Count 16.15 K/mm3 (4.00-11.30)
[2018-08-02 05:28] LABS: Mean Corpuscular Volume 100 fL (80-100)
[2018-08-02 05:39] LABS: International Normalized Ratio 3.04; Prothrombin Time Results 29.1 Sec (9.7-11.5)
[2018-08-02 05:50] LABS: Anion Gap 2 mmol/L (6-16); Blood Urea Nitrogen 37 mg/dL (8-24); Bun/Creatinine Ratio 32.2 (12.0-20.0); CO2, Blood 36 mmol/L (21-32); Calcium, Blood 8.2 mg/dL (8.5-10.1); Chloride, Blood 104 mmol/L (98-108); Creatinine, Blood 1.15 mg/dL (0.60-1.20); Glomerular Filtration Rate >60 (60-); Glucose, Blood 114 mg/dL (70-99); Potassium, Blood 3.9 mmol/L (3.5-5.5); Sodium, Blood 142 mmol/L (136-145)
--- NOTE | 2018-08-02 18:56 | NUR ---
SHIFT SUMMARY 87 YR OLD MALE. FULL CODE. CONTACT PRECAUTIONS FOR C DIFF. ADMITTED FOR AFIB W/RVR. PT MONITORED BY PCU HEEL ROOM SUPERVISOR VIA TELEMETRY. A-FIB W/PVC'S @ 84 BPM. +2 DRY EDEMA BLE. PILLS TAKEN WHOLE. LR RUNNING @ 75 ML/HR. RECTAL TUBE IN PLACE FOR FREQUENT DIARRHEA. HE IS A 2 PERSON ASSIST. MEDS MAY BE TAKEN WHOLE. hX:DVT. PLEASE CALL [facility] WHEN DC - TO GET CARE PROVIDER READY.
[2018-08-03 01:44] LABS: PCO2 Arterial 64.2 mmHg (35-45); PO2 Arterial 334 mmHg (80-100)
[2018-08-03 01:45] LABS: pH Blood Arterial 7.29 (7.35-7.45)
--- NOTE | 2018-08-03 01:56 | NUR ---
CODE UPON ARRIVAL ON SHIFT PT DID APPEAR TO BE MORE LETHARGIC THEN PREVIOUS NIGHT WHEN THIS NURSE CARED FOR PT IN PCU PRIOR TO TRANSFER TO MEDICAL FLOOR TO ROOM 341. PT WAS ALERT, AND AROUSABLE, ABLE TO ADMINISTER EVENING MEDICATIONS WITHOUT COMPLICATION BUT THEN PT QUICKLY WENT BACK TO SLEEP. SPOKE TO CHARGE NURSE REGARDING PTS STATUS LAST NIGHT AFTER TRANSFER AND PER REPORT PT FELT ANXIOUS AND WAS AWAKE MOST OF THE PREVIOUS NIGHT LEADING THIS NURSE TO BELIEVE THAT PT WAS SLEEPY FROM NOT SLEEPING THE PREVIOUS NIGHT OR DAY. PT WAS STILL ABLE TO STATE NAME, , KNEW HE WAS IN THE HOSPITAL AND THAT IT WAS FOR TREATMENT OF C-DIFF. PIPING DESIGNER ASSISTED PT WITH FEEDING BECAUSE PT HAD NOT EATEN VERY MUCH OF HIS DINNER. PT ALSO TOLLERATED THIS WELL. PERFORMED SHIFT ASSESSMENT AROUND 0015 AND PT WAS SLEEPY BUT RESPONSIVE WITH NO APPARENT ACUTE DISTRESS. CALL TO GEOPHYSICAL MANAGER AT APPROXIMATELY 0030 FOR RATE AND RHYTHM WHICH WAS A-FIB WITH OCCATIONAL PVC AT A RATE OF 71. CALL BACK FROM GEOPHYSICAL MANAGER AT APPROXIMATELY 0040 STATING THAT PTS HR HAD DROPPED INTO THE 40S. NOTICED THAT PTS HOB HAD BEEN DECREASED BY PIPING DESIGNER TO FACILITATE BETTER POSITIONING FOR SLEEP SHORTLY PRIOR TO CALL FROM GEOPHYSICAL MANAGER. ELEVATED HOB TO DETERMINE IF THIS MAY INCREASE PTS HR. AT THIS TIME THIS NURSE CALLED OUT PTS NAME WHO THEN OPENED EYES AND LOOKED AT THIS NURSE THEN HEAD FELL LIMP TO THE SIDE. CALL TO CHARGE NURSE TO CALL RAPID TO ROOM 341 WHILE FEELING FOR PULSE AND AT THIS TIME RESPIRATORY THERAPIST WHO WAS NEAR BY OVERHEARD AND ENTERED THE ROOM. THIS NURSE DID NOT FEEL PULSE SO CALLED A CODE AND LOWERED HOB AND BEGAN CHEST COMPRESSIONS. RESPIRATORY THERAPIST PULLED CODE LEVER. THIS NURSE ADMINISTERED CHEST COMPRESSIONS UNTIL CODE TEAM ARRIVED AT APPROXIMATELY 0048. PLEASE SEE CODE SHEET FOR ADDITIONAL INTERVENTIONS. CALL TO MESERET PTS DAUGHTER AT 0105 AT PHONE NUMBER [phone] WHO DID NOT ANSWER. LEFT A VOICEMAIL MESSAGE TO RETURN A CALL TO [facility] REGARDING JOE. THE PT WAS TRANSFERRED AT 0105 TO ICU-9. CALL TO NURSE FOR ICU-9 TO GIVE ADDITIONAL REPORT ON PT AND AM CURRENTLY AWAITING A RETURN CALL.
[2018-08-03 02:02] LABS: International Normalized Ratio 3.59; Prothrombin Time Results 33.9 Sec (9.7-11.5)
[2018-08-03 02:04] LABS: Albumin, Blood 2.1 g/dL (3.4-5.0); Albumin/Globulin Ratio 0.6 (0.8-1.8); Bilirubin, Total 0.3 mg/dL (0.1-1.0); Bun/Creatinine Ratio 27.5 (12.0-20.0); Calcium, Blood 8.1 mg/dL (8.5-10.1); Creatinine, Blood 1.67 mg/dL (0.60-1.20); Globulin, Blood 3.7 g/dL (2.2-4.0); Magnesium, Blood 2.2 mg/dL (1.6-2.4); Potassium, Blood 4.9 mmol/L (3.5-5.5); Total Protein, Blood 5.8 g/dL (6.4-8.2)
[2018-08-03 02:12] LABS: BASOPHILS ABSOLUTE AUTO 0.04 K/mm3 (0.00-0.23); BASOPHILS PERCENT AUTO 0 % (0-2); EOSINOPHILS ABSOLUTE AUTO 0.01 K/mm3 (0.00-0.68); EOSINOPHILS PERCENT AUTO 0 % (0-6); Hematocrit 39.2 % (37.0-53.0); Hemoglobin 11.4 g/dL (13.5-17.5); IMMATURE GRAN ABSOLUTE AUTO 0.71 K/mm3 (0.00-0.10); IMMATURE GRAN PERCENT AUTO 5 % (0-1); LYMPHOCYTES ABSOLUTE AUTO 1.89 K/mm3 (0.84-5.20); LYMPHOCYTES PERCENT AUTO 13 % (21-46); MONOCYTES PERCENT AUTO 4 % (4-13); Mean Corpuscular HGB 30.6 pg (26.0-34.0); Mean Corpuscular HGB Conc 29.1 g/dL (31.5-36.5); Mean Corpuscular Volume 105 fL (80-100); Mean Platelet Volume 10.3 fL (9.1-12.4); NEUTROPHILS ABSOLUTE AUTO 11.53 K/mm3 (1.96-9.15); NEUTROPHILS PERCENT AUTO 78 % (41-73); NRBC ABSOLUTE 0.06 K/mm3 (0.00-0.02); NRBC Auto 0.4 /100 WBC (0.0-0.2); Platelet Count 338 K/mm3 (150-400); RDW Coefficient Variation 16.4 % (11.7-14.2); RDW Standard Deviation 63.8 fL (35.1-46.3); Red Blood Cell Count 3.72 M/mm3 (4.30-5.90); White Blood Cell Count 14.78 K/mm3 (4.00-11.30)
--- NOTE | 2018-08-03 03:39 | NUR ---
DAUGHTER NOTIFIED THAT PT WAS CODED AND TRANSFERRED TO ICU ON A BREATHING MACHINE AND IS NOW REQUIRING MEDICATIONS TO KEEP HIS BLOOD PRESSURE UP AND THAT WE NEEDED TO PLACE A CENTRAL LINE. DAUGHTER TOLD ME THIS WOULD BE HER 3RD THIS YEAR. ASKED ME NUMEROUS TIMES WHAT I THINK HIS QUALITY OF LIFE WILL BE. TOLD US TO PROCEED WITH THE CENTRAL LINE AND MAINTAINING HIM AT THIS POINT. STATED THAT SHE PLANS ON COMING DOWN FROM [place] TODAY TO MAKE PLANS TO HOW SHE WILL PROCEED FROM HERE.
[2018-08-03 03:50] LABS: Source, Urine Catheter
[2018-08-03 03:52] LABS: Bilirubin, Urine Neg (Neg); Blood, Urine 1+ (Neg); Glucose Qualitative, Urine Neg (Neg); Ketones, Urine Neg (Neg); Leukocyte Esterase, Urine 1+ (Neg); Nitrite, Urine Neg (Neg); Protein, Urine 2+ (Neg); Urobilinogen, Urine NORM (Normal)
[2018-08-03 04:08] LABS: Appearance, Urine Hazy (Clear); Color, Urine Yellow (P-Yellow)
[2018-08-03 04:09] LABS: Amorphous Mod (0-Heavy); Bacteria Few /hpf; Granular Casts 25-50 /lpf (0); Squamous Epithelial Cells Rare /hpf (Few)
--- NOTE | 2018-08-03 06:15 | NUR ---
ASSUMED CARE/END OF SHIFT SUMMARY ASSUMED CARE OF PT AT APPROXIMATELY 0115. PT ARRIVED ON UNIT INTUBATED WITH ETT 8.0 AND 24CM AT THE TEETH. VENT SETTINGS AC 20, TV 450, PEEP 5, FIO2 80%. NO SEDATION D/T PT RECEIVING ETOMIDATE AND SUCCS POST CODE FOR INTUBATION. PER BEDSIDE REPORT PT RECEIVED 5 MINUTES OF CPR WITH ONE ROUND OF EPI AND PT WENT FROM PEA ARREST BACK INTO AFIB; IN WHICH PT IS CURRENTLY ANTICOAGULATED. PT TRANSFERRED OVER TO ICU BED AND HOOKED UP TO TELE LEADS AND MONITOR. PROPOFOL INITIATED SHORTLY AFTER ARRIVAL TO ICU AND WAS STARTED AT 20MCG/MIN AND AN OG WAS PLACED; CONFIRMED WITH CXR. 14F RODRIGUEZ PLACED WITH MINIMAL DARK, CLOUDY, ROBERTO COLORED URINE. BP 105/69; HOWEVER, BP SHORTLY STARTED TRENDING DOWN QUICKLY WITH MAP IN THE 50'S. ORDERS RECEIVED FOR LEVOPHED GTT, WHICH WAS STARTED AT 10MCG/MIN AND TITRATED ACCORDINGLY UP TO A MAX OF 20MCG/MIN WITH ADJUNCT VASOPRESSIN. PROPOFOL WAS TITRATED DOWN TO 10MCG/MIN WHILE TRYING TO GET A STABLE BP. DR. BHATIA AT BEDSIDE TO PLACE CENTRAL LINE AT APPROXIMATELY 0230; 16F TO RIGHT IJ; CONFIRMED WITH CHEST XRAY. DR. BHATIA ALSO GAVE VERBAL ORDERS IN REGARDS TO LACTIC ACID TO BOLUS 250CC OF LR THEN MAINTAIN AT 75MLS/HR D/T PT'S HX OF HEART FAILURE. PT ABLE TO RESPOND TO VERBAL STIMULI WITH PROPOFOL AT 10MCG/MIN AND FOLLOW COMMANDS; INCREASED PROPOFOL TO 40MCG/MIN D/T STABLE BP'S AND PT WAS STILL ABLE TO RESPOND TO VERBAL STIMULI AND OPEN EYES; INCREASED PROPOFOL TO 50MCG/MIN, WHICH WAS EFFECTIVE. ABLE TO DECREASE LEVOPHED DOWN TO 3MCG/MIN WITH VASOPRESSIN ON STANDBY. LR INFUSING AT 75MLS/HR. PT APPEARS COMFORTABLE. CERTIFIED NURSING ASSISTANT INSTRUCTOR CALLED DAUGHTER TO GIVE AN UPDATE. CONSULT PLACED TO INTENSIVEST. PT APPEARS COMFORTABLE AT THIS TIME. REMAINS ON CONTACT PRECAUTIONS SECONDARY TO C.DIFF.
--- NOTE | 2018-08-03 07:24 | NUR ---
ASSUMED CARE REPORT FROM KARRIE THOMPSON. PATIENT INTUBATED, SEDATED ON PROPOFOL AT 50 MCG/KG/MIN. LR AT 75 ML/HR. RIGHT IJ CL . RECTAL TUBE. IN ISOLATION FOR C-DIFF.
--- NOTE | 2018-08-03 10:21 | NUR ---
TURNED AND CLEANED WITH ASSISTANCE OF RAHUL SONG. RECTAL TUBE REPOSITIONED AND FLUSHED. LIDOCAINE PATCH TO LEFT HIP. PROPOFOL TO 40 MCG/KG/MIN. FIO2 TURNED TO 50% BY RT MERCY. LEVOPHED AT 3 MCG/MIN
[2018-08-03 13:05] LABS: PCO2 Arterial 35.2 mmHg (35-45); pH Blood Arterial 7.56 (7.35-7.45)
[2018-08-03 13:06] LABS: PO2 Arterial 47 mmHg (80-100)
--- NOTE | 2018-08-03 14:29 | NUR ---
SEDATION VACATION. PATIENT RESPONDED WITH HEAD SHAKE WHEN ASKED TO OPEN HIS EYES. OPENED HIS EYES WHEN TOLD HE RECEIVED CPR. PROPOFOL TURNED BACK ON AT 30 MCG/KG/MIN AT 1420. DR. MUÑOZ NOTIFIED OF LAB RESULTS. VENT SETTINGS CHANGED.
--- NOTE | 2018-08-03 16:37 | NUR ---
VIANEY, DAUGHTER CAME IN AND ASKED FOR AN URGENT LETTER ON LETTERHEAD FROM THE DOCTOR SO SHE COULD TAKE IT TO THE BANK SHOWING HE IS INCAPACITATED. DR. MUÑOZ IS NOT ABLE TO DO THAT. SHE WAS REFERRED TO HIS PCP.
--- NOTE | 2018-08-03 19:41 | NUR ---
FAMILY DECIDED PATIENT WOULD LIKE TO HAVE LUNG TAKEN CARE OF IF IT COULD IMPROVE HIS QUALITY OF LIFE. DR. MUÑOZ NOTIFIED. SURGERY CONSULT ORDERED. ANSWERING SERVICE NOTIFIED FOR DR. GUERRERO
--- NOTE | 2018-08-03 20:00 | NUR ---
ASSUMED CARE BEDSIDE REPORT RECIEVED. PT IS RESTING QUIETLY, SEDATED ON VENT. VENT SETTINGS AC 16, TV 450, PEEP 5, FIO2 40%. PT GRIMMACES WITH ORAL CARE AND NOXIOUS STIMULI. PROPOFOL AT 30 MCG/KG/MIN. LEVOPHED AT 3 MCG/MIN, AND LR AT 75 ML/HR THROUGHT CL TO RIJ. OGT IN PLACE, CLAMPED AT THIS TIME. RODRIGUEZ IN PLACE WITH YELLOW OUTPUT NOTED. RECTAL TUBE IN PLACE WITH LIQUID BROWN OUTPUT NOTED. PT WITH MULTIPLE SCATTERED WOUNDS AND WEEPING EDEMA TO BUE AND BLE. SBW RESTRAINTS IN PLACE. VITAL SIGNS STABLE. WILL CONTINUE TO MONITOR.
[2018-08-04 04:48] LABS: Prothrombin Time Results 42.6 Sec (9.7-11.5)
[2018-08-04 05:00] LABS: International Normalized Ratio 4.62
--- NOTE | 2018-08-04 05:57 | NUR ---
SHIFT SUMMARY NO ACUTE CHANGES THIS SHIFT. PT REMAINS ON VENT, AC 16, TV 450, PEEP 5, FIO2 30%. PT DID WELL WITH SEDATION VACATION THIS AM. PT ABLE TO SHAKE HEAD YES OR NO TO QUESTIONS AND SQUEEZE HANDS UPON COMMAND. PT REMAINS ON LEVOPHED AT 3 MCG/MIN. PROPOFOL AT 30 MCG/KG/MIN, AND LR AT 75 ML/HR. OGT REMAINS IN PLACE, CLAMPED. RODRIGUEZ REMAINS IN PLACE WITH GOOD URINE OUTPUT. RECTAL TUBE IN PLACE WITH LIQUID BROWN OUTPUT. SBW RESTRAINTS REMAIN IN PLACE. WILL CONTINUE TO MONITOR AND REPORT OFF TO ONCOMING RN.
--- NOTE | 2018-08-04 08:27 | NUR ---
ASUUMED CARE AT 0700 REPORT FROM KARRIE RAMOS. PROPOFOL AT 30 MCG/KG/MIN. LEVOPHED AT 3 MCGMIN. LR AT 75 ML/HR. IMPROVED URINE OUTPUT. ISOLATION FOR C-DIFF. BIOX 100% ON 30 FIO2.
--- NOTE | 2018-08-04 08:30 | NUR ---
LEVOPHED TITRATED TO 2 MCG/MIN
--- NOTE | 2018-08-04 08:31 | NUR ---
MD VISIT DR. QUIÑONES IN. HE WILL CONSULT GI FOR C-DIFF WHEN PATIENT IS OFF THE VENT
[2018-08-04 09:22] LABS: Bun/Creatinine Ratio 31.9 (12.0-20.0); Calcium, Blood 7.6 mg/dL (8.5-10.1); Creatinine, Blood 1.38 mg/dL (0.60-1.20); Potassium, Blood 3.3 mmol/L (3.5-5.5)
[2018-08-04 09:27] LABS: Hematocrit 27.6 % (37.0-53.0); Hemoglobin 9.1 g/dL (13.5-17.5); Mean Corpuscular HGB 30.3 pg (26.0-34.0); Mean Platelet Volume 10.5 fL (9.1-12.4); Platelet Count 252 K/mm3 (150-400); RDW Coefficient Variation 15.9 % (11.7-14.2); White Blood Cell Count 9.35 K/mm3 (4.00-11.30)
[2018-08-04 10:12] LABS: Mean Corpuscular Volume 92 fL (80-100)
[2018-08-04 10:20] LABS: PCO2 Arterial 34.4 mmHg (35-45); PO2 Arterial 92.2 mmHg (80-100); pH Blood Arterial 7.58 (7.35-7.45)
--- NOTE | 2018-08-04 11:07 | NUR ---
MD VISIT DR. GUERRERO IN
--- NOTE | 2018-08-04 11:10 | NUR ---
LEVOPHED IS OFF.
--- NOTE | 2018-08-04 12:18 | NUR ---
MD VISIT DR. MUÑOZ IN. POTASSIUM ORDERS
--- NOTE | 2018-08-04 18:41 | NUR ---
PATIENT HAS BEEN RESPONDING TO FAMILY AT BEDSIDE WITH PROPOFOL AT 20 MCG/KG/MIN. LEVOPHED IS OFF.ORAL VITAMIN K GIVEN PT, POTASSIUM REPLACED. LASIX GIVEN. TUBE FEED STARTED AT 25 ML/HR. GOAL IS 30 ML/HR. SPUTUM SAMPLE SENT.
--- NOTE | 2018-08-04 19:30 | NUR ---
ASSUMED CARE REPORT RECIEVED. PT IS RESTING QUIETLY, SEDATED ON VENT. PT RESPONDS TO VERBAL STIMULI AND IS ABLE TO SHAKE HEAD YES OR NO TO QUESTIONS. PT FOLLOWING COMMANDS. PT SHAKE HEAD NO TO PAIN. VENT AC 12, TV 400, PEEP 5, FIO2 30%. PT WITH LARGE AMOUNT OF BLOODY SECRETIONS WITH ETT SUCTION. VITAL SIGNS STABLE, PT OFF LEVOPHED. PROPOFOL AT 20 MCG/KG/MIN, NS TKO. OGT IN PLACE WITH TF AT 25 ML/HR. NO RESIDUALS. RODRIGUEZ IN PLACE WITH CLEAR YELLOW OUTPUT NOTED. RECTAL TUBE IN PLACE WITH LIQUID BROWN OUTPUT NOTED. SBW RESTRAINTS IN PLACE. WILL CONTINUE TO MONITOR.
[2018-08-05 03:23] LABS: Base Excess Venous 11.2 mmol/L; Bicarbonate Venous 33.6 mmol/L (24.0-30.0); PCO2 Venous 39.8 mmHg (38-42); PO2 Venous 35.4 mmHg (38-42); pH Blood Venous 7.54 (7.34-7.37)
[2018-08-05 03:27] LABS: BASOPHILS ABSOLUTE AUTO 0.01 K/mm3 (0.00-0.23); BASOPHILS PERCENT AUTO 0 % (0-2); EOSINOPHILS ABSOLUTE AUTO 0.36 K/mm3 (0.00-0.68); EOSINOPHILS PERCENT AUTO 5 % (0-6); Hematocrit 27.1 % (37.0-53.0); Hemoglobin 8.9 g/dL (13.5-17.5); IMMATURE GRAN ABSOLUTE AUTO 0.05 K/mm3 (0.00-0.10); IMMATURE GRAN PERCENT AUTO 1 % (0-1); LYMPHOCYTES PERCENT AUTO 15 % (21-46); MONOCYTES ABSOLUTE AUTO 0.59 K/mm3 (0.16-1.47); MONOCYTES PERCENT AUTO 9 % (4-13); Mean Corpuscular HGB 30.3 pg (26.0-34.0); Mean Corpuscular HGB Conc 32.8 g/dL (31.5-36.5); Mean Corpuscular Volume 92 fL (80-100); Mean Platelet Volume 9.9 fL (9.1-12.4); NEUTROPHILS ABSOLUTE AUTO 4.91 K/mm3 (1.96-9.15); NEUTROPHILS PERCENT AUTO 71 % (41-73); Platelet Count 216 K/mm3 (150-400); RDW Coefficient Variation 15.9 % (11.7-14.2); RDW Standard Deviation 53.1 fL (35.1-46.3); Red Blood Cell Count 2.94 M/mm3 (4.30-5.90); White Blood Cell Count 6.92 K/mm3 (4.00-11.30)
[2018-08-05 03:41] LABS: International Normalized Ratio 2.99; Prothrombin Time Results 28.7 Sec (9.7-11.5)
[2018-08-05 03:42] LABS: Calcium, Blood 7.6 mg/dL (8.5-10.1); Creatinine, Blood 1.36 mg/dL (0.60-1.20); Magnesium, Blood 1.9 mg/dL (1.6-2.4); Phosphorus, Blood 2.6 mg/dL (2.5-4.9); Potassium, Blood 3.4 mmol/L (3.5-5.5)
--- NOTE | 2018-08-05 05:58 | NUR ---
SHIFT SUMMARY NO ACUTE CHANGES THIS SHIFT. PT REMAINS ON VENT. AC 12, TV 400, PEEP 5, FIO2 30%. VITAL SIGNS HAVE REMAINED STABLE. PT HAS REMAINED OFF LEVOPHED THROUGHOUT THE SHIFT. PT SEDATED WITH PROPOFOL AT 30 MCG/KG/MIN FOR MOST OF THE SHIFT. PROPOFOL PLACED ON STANDBY FOR SBT THIS AM. PROPOFOL REMAINS ON STANDBY AND PT IS RESTING QUIETLY. PT ABLE TO FOLLOW COMMANDS WELL AND OPENS EYES SPONTANEOUSLY. OGT IN PLACE WITH TF AT 30 ML/HR GOAL RATE. MINIMAL RESIDUALS NOTED. CL TO RIJ C/D/I, NS INFUSING TKO. RODRIGUEZ IN PLACE WITH GOOD URINE OUTPUT THIS SHIFT. RECTAL TUBE IN PLACE WITH LIQUID BROWN OUTPUT NOTED. PT WITH SBW RESTRAINTS IN PLACE. WILL CONTINUE TO MONITOR AND REPORT OFF TO ONCOMING RN.
--- NOTE | 2018-08-05 07:30 | NUR ---
ASSUMED CARE OF PATIENT; SEE ASSESSMENT CHARTING FOR DETAILS. PATIENT ALERT AND ABLE TO NOD HEAD APPROPRIATELY. C/O DISCOMFORT; RN WILL MEDICATE WITH FENTANYL; PATIENT DOES NOT WANT SEDATION RESUMED AT THIS TIME. REMAINS INTUBATED WITH VENT. SETTINGS: A/C 12, TV 400, PEEP 5 AND FIO2 30%. MONITOR REMAINS ATRIAL FIB WITH RATE IN THE 70'S TO 80'S. LUNGS CLEAR BUT DIMINISHED T/O. OGT INFUSING WITH PIVOT 1.5 AT 30ML/HR.; RESIDUAL < 10ML. RODRIGUEZ DRAINING FAIR AMOUNTS OF MED. YELLOW URINE. BILAT. SOFT WRIST RESTRAINTS IN PLACE TO PREVENT SELF EXTUBATION AND PULLING OF LINES.
--- NOTE | 2018-08-05 08:30 | NUR ---
DR. QUIÑONES HERE; RN UPDATED HIM ON PATIENTS' STATUS; NO NEW ORDERS.
--- NOTE | 2018-08-05 09:00 | NUR ---
FENTANYL 50MCG/IVT FOR CHEST DISCOMFORT; REPOSITIONED. CONT. TO BE ORIENTED AND FOLLOW COMMANDS.
--- NOTE | 2018-08-05 09:30 | NUR ---
PROPOFOL RESTARTED AT 15MCG/KG/MIN; PATIENT SL. RESTLESS AND HAVING DIFF. SLEEPING; NODDED YES WHEN ASKED IF HE WANTED TO BE SEDATED.
--- NOTE | 2018-08-05 10:15 | NUR ---
DR. MUÑOZ HERE; SEE ORDERS. PLEASED THAT INR HAS REDUCED; HOPING THAT PROCEDURE CAN BE DONE THIS WEEK (? TOMORROW) TO HAVE A VATS BY INTERVENTIONALIST.
--- NOTE | 2018-08-05 10:30 | NUR ---
SEDATION REDUCED TO 10MCG/KG/MIN D/T SBP DROPPING IN 90'S.
--- NOTE | 2018-08-05 18:00 | NUR ---
SUMMARY: REMAINS WITHOUT ACUTE CHANGES. LABS REASONABLE; RECEIVED 20MEQ KCL FOR k+ OF 3.4 THIS AM. ? IF DR ELLIS WILL BE ABLE TO REMOVE ENCAPSULATED PLEURAL EFFUSIONS. FENTANYL X2 FOR PAIN MANAGEMENT/COMFORT; PROPOFOL DRIP AT 10MCG/KG/MIN. NO VENT CHANGES. WILL REPORT TO ONCOMING RN.
--- NOTE | 2018-08-05 20:00 | NUR ---
ASSUMED CARE BEDSIDE REPORT RECIEVED. PT IS RESTING QUIETLY IN BED ON VENT. VENT SETTINGS AC 12, TV 400, PEEP 5, FIO2 30%. PT INITIALLY ON PROPOFOL AT 10 MCG/KG/MIN. PT OPENS EYES SPONTANEOUSLY AND FOLLOWS COMMANDS APPROPRIATELY. PT DENIES PAIN OR DISCOMFORT AT THIS TIME. PROPOFOL INCREASED TO 20 MCG/KG/MIN. NS INFUSING TKO. CL TO RIJ C/D/I. OGT IN PLACE WITH TF AT 30 ML/HR GOAL RATE, NO RESIDUALS. RODRIGUEZ IN PLACE WITH YELLOW OUTPUT NOTED. RECTAL TUBE IN PLACE WITH LIQUID BROWN OUTPUT NOTED. SBW RESTRAINTS IN PLACE. EDEMA TO BUE IMPROVING. VITAL SIGNS STABLE. WILL CONTINUE TO MONITOR.
[2018-08-06 04:11] LABS: BASOPHILS ABSOLUTE AUTO 0.01 K/mm3 (0.00-0.23); BASOPHILS PERCENT AUTO 0 % (0-2); EOSINOPHILS PERCENT AUTO 5 % (0-6); Hematocrit 25.6 % (37.0-53.0); Hemoglobin 8.2 g/dL (13.5-17.5); IMMATURE GRAN ABSOLUTE AUTO 0.09 K/mm3 (0.00-0.10); IMMATURE GRAN PERCENT AUTO 2 % (0-1); LYMPHOCYTES ABSOLUTE AUTO 1.29 K/mm3 (0.84-5.20); LYMPHOCYTES PERCENT AUTO 21 % (21-46); MONOCYTES ABSOLUTE AUTO 0.59 K/mm3 (0.16-1.47); MONOCYTES PERCENT AUTO 10 % (4-13); Mean Corpuscular HGB 29.5 pg (26.0-34.0); Mean Corpuscular Volume 92 fL (80-100); Mean Platelet Volume 10.4 fL (9.1-12.4); NEUTROPHILS ABSOLUTE AUTO 3.75 K/mm3 (1.96-9.15); NEUTROPHILS PERCENT AUTO 62 % (41-73); Platelet Count 212 K/mm3 (150-400); RDW Coefficient Variation 15.8 % (11.7-14.2); RDW Standard Deviation 53.2 fL (35.1-46.3); Red Blood Cell Count 2.78 M/mm3 (4.30-5.90); White Blood Cell Count 6.03 K/mm3 (4.00-11.30)
[2018-08-06 04:28] LABS: International Normalized Ratio 1.64; Prothrombin Time Results 16.6 Sec (9.7-11.5)
[2018-08-06 04:33] LABS: Albumin, Blood 1.6 g/dL (3.4-5.0); Albumin/Globulin Ratio 0.5 (0.8-1.8); Bilirubin, Total 0.8 mg/dL (0.1-1.0); Bun/Creatinine Ratio 38.3 (12.0-20.0); Calcium, Blood 7.3 mg/dL (8.5-10.1); Creatinine, Blood 1.41 mg/dL (0.60-1.20); Potassium, Blood 3.3 mmol/L (3.5-5.5); Total Protein, Blood 4.6 g/dL (6.4-8.2)
--- NOTE | 2018-08-06 05:53 | NUR ---
SHIFT SUMMARY NO ACUTE CHANGES THIS SHIFT. PT HAS REMAINED ON VENT, SETTINGS UNCHANGED. PT CONTINUES TO RESPOND TO VERBAL STIMULI AND SHAKES HEAD APPROPRIATELY TO QUESTIONS. PT HAS DENIED PAIN THROUHGOUT MOST OF THE SHIFT, PT MED WITH FENTANYL THIS AM FOR CHEST/RIB PAIN. PT SEDATED WITH PROPOFOL AT 20 MCG/KG/MIN. CL C/D/I WITH NS TKO. OGT IN PLACE WITH TF AT 30 ML/HR GOAL RATE. RODRIGUEZ IN PLACE WITH GOOD URINE OUTPUT. RECTAL TUBE REMAINS IN PLACE WITH LIQUID BROWN OUTPUT. SBW RESTRAINTS REMAIN IN PLACE. PT DID BETTER WITH BREATHING TRIAL THIS AM. VITAL SIGNS HAVE REMAINED STABLE. WILL CONTINUE TO MONITOR AND REPORT OFF TO ONCOMING RN.
--- NOTE | 2018-08-06 08:00 | NUR ---
CARE ASSUMED CARE AND REPORT ASSUMED FROM RICHARD YOON. PT INTUBATED ON VENT AC 12, TV 400, PEEP 5, FIO2 30%. PROPOFOL GTT INFUSING AT 20 MCG/KG/MIN. PT OPENS EYES TO PAINFUL AND VERBAL STIMULATION, ABLE TO FOLLOW COMMANDS APPROPRIATELY, AND SHAKES HEAD YES/NO TO QUESTIONS. BUE RESTRAINED TO PROTECT ETT AND LINES. AFIB, HR 50-60S. AFEBRILE. RECTAL TUBE SECURED AND PATENT. RODRIGUEZ CATHETER SECURED AND PATENT. DENIES PAIN WHEN ASKED. TOLERATING TF WITH NO RESIDUAL. METOPROLOL HELD THIS AM FOR LOW HR. POTASSIUM REPLACEMENT INFUSING. WILL CONTINUE TO MONITOR.
--- NOTE | 2018-08-06 13:36 | NUR ---
REASSESSMENT PT REMAINS INTUBATED WITH LIGHT SEDATION. PROPOFOL GTT INFUSING AT 20 MCG/KG/MIN. BUE REMAIN RESTRAINED. REMAINS IN AFIB. VENT AC 12, TV 400, PEEP 5, FIO2 30% WITH CLEAR LUNG SOUNDS IN SUPINE POSITION. WHEN ASKED IF IN PAIN, PT RESPOND WITH YES NOD AND SHOOK HEAD YES WHEN ASKED ABOUT CHEST. MEDICATED WITH FENTANYL 50 MCG IVP. WILL CONTINUE TO MONITOR.
--- NOTE | 2018-08-06 18:36 | NUR ---
SHIFT SUMMARY PT REMAINED INTUBATED ON AC WITH LIGHT SEDATION. PROPOFOL GTT INFUSED AT 20 MCG/KG/MIN ENTIRE SHIFT, WITH PT RESPONDING TO VERBAL STIMULI AND ANSWERING QUESTIONS WITH A NOD. BUE RESTRAINED. POTASSIUM REPLACED IN AM. CONTINUES TO TOLERATE TF AT GOAL WITH MINIMAL TO ZERO RESIDUALS. HOB ELEVATED, PT TURNED, AND ORAL CARE COMPLETED PER PROTOCOL. REMAINS IN AFIB WITH MAP 65-80. RECTAL TUBE AND RODRIGUEZ REMAIN PATENT AND SECURE. RECTAL TUBE OUTPUT 150 ML AND URINE OUTPUT 650. WILL GIVE BEDSIDE, HANDOFF REPORT TO WILTON RN.
--- NOTE | 2018-08-06 19:45 | NUR ---
ASSUME CARE REPORT RECIEVED FROM OFF GOING RN NIKKI. MONITOR INTACT SHOWING A FIB. HEART RATE 60'S. VENT SETTINGS AC 12, TV 400, FIO2 30% , PEEP 5, RATE 20'S, SPO2 95-100%. LUNG SOUNDS CLEAR UPPER LOBES WITH SLIGHTLY DECREASED SOUNDS IN THE BASES. MODERATE AMT YELLOW/RG THIN SECREATIONS WITH ORAL CARE. 15ML TUBE FEED REFED WITH ORAL CARE. ABDOMEN SOFT WITH BOWEL SOUNDS FOUR QUADS.RECTAL TUBE INTACT/PATENT WITH BROWN LIQUID RETURN. RODRIGUEZ PATENT DRAINING ROBERTO URINE.PAS TO LOWER EXTREMITIES. DRESSING INTACT TO COCCYX GENERALIZED DEPENDENT EDEMA WITH SCROTAL EDEMA WITH SLING INTACT. WEEPING EDEMA WITH DRESSING INTACT TO R ARM EXTREMITIES ELEVATED ON PILLOWS.REMAINS IN SOFT RESTRAINTS TO PREVENT INADVERTENT REMOVAL OF LINES/TUBES. CONTINUE TO MONITOR AND REPORT CHANGE IN PATIENT CONDITION
[2018-08-07 03:56] LABS: Hematocrit 27.2 % (37.0-53.0); Hemoglobin 8.7 g/dL (13.5-17.5); Mean Corpuscular Volume 94 fL (80-100); Mean Platelet Volume 10.9 fL (9.1-12.4); Platelet Count 201 K/mm3 (150-400); RDW Coefficient Variation 16.1 % (11.7-14.2); RDW Standard Deviation 55.1 fL (35.1-46.3)
[2018-08-07 04:12] LABS: International Normalized Ratio 1.36
[2018-08-07 04:20] LABS: Albumin, Blood 1.6 g/dL (3.4-5.0); Anion Gap 4 mmol/L (6-16); Blood Urea Nitrogen 55 mg/dL (8-24); CO2, Blood 33 mmol/L (21-32); Calcium, Blood 7.7 mg/dL (8.5-10.1); Chloride, Blood 107 mmol/L (98-108); Creatinine, Blood 1.28 mg/dL (0.60-1.20); Glomerular Filtration Rate 56 (60-); Glucose, Blood 100 mg/dL (70-99); Magnesium, Blood 2.1 mg/dL (1.6-2.4); Phosphorus, Blood 2.9 mg/dL (2.5-4.9); Potassium, Blood 3.6 mmol/L (3.5-5.5); Sodium, Blood 144 mmol/L (136-145)
--- NOTE | 2018-08-07 06:25 | NUR ---
SHIFT SUMMMARY; REMAINS INTUBATED SEDATED AND RESTRAINED. VENT SETTINGS AC 12, TV 400 FIO2 30% PEEP 5, RATE 16-20'S, SPO2 97-100%. LUNG SOUNDS CLEAR UPPER LOBES WITH THIN BLOOD TINGED SECRETION SX WITH ORAL CARE. SLIGHTLY DECREASED SOUNDS IN THE BASES DID NOT DO WELL WITH WEANING SECONDARY TO LOW TIDAL VOLUMES.ABDOMEN SOFT WITH BOWEL SOUNDS FOUR QUADS. RODRIGUEZ PATENT DRAINING ROBERTO URINE. RECTAL TUBE PATENT WITH BROWN LIQUID STOOL.GENERALIZED DEPENDENT ESPECIALLY TO SCROTAL, AND L UPPER EXTREMITY.ALSO PITTING EDEMA TO R LOWER EXTREMITY . EXTREMITIES PLACED ON PILLOWS WEEPING EDEMA TO L UPPPER ARM SCROTAL SLING IN PLACE. PAS TO LOWER EXTREMITIES WITH HEEL PROTECTORS MINIMAL RESIDUALS FROM TUBE FEED. 15, AND 8 RESPECTIVLY REFED WITH ORAL CARE. CONTINEU TO MONITOR AND REPORT CHANGE IN PATIENT CONDITION. REMAINS IN SOFT WRIST RESTRAINTS TO PREVENT INADVERTENT REMOVAL OF LINES/TUBES.
--- NOTE | 2018-08-07 10:33 | NUR ---
CARE ASSUMED CARE AND REPORT ASSUMED FROM HEMAL YOON. PT INTUBATED ON VENTILATOR AC 12, TV 400, PEEP 5, FIO2 40%. PROPOFOL GTT INFUSING AT 20 MCG/KG/MIN AND PT STILL ABLE TO OPEN EYES, RESPONDS TO VERBAL STIMULUS, AND FOLLOWS COMMANDS APPROPRIATELY. SHAKES HEAD YES WHEN ASKED ABOUT PAIN. FENTANYL 50 MCG IVP GIVEN. SCROTUM LARGELY EDEMATOUS WITH CRACKED SKIN; CURRENTLY IN PILLOW SWING AND LUBRICATED WITH LOTION. BUE RESTRAINED TO PROTECT ETT AND LINES. AFEBRILE. LUNG SOUNDS CLEAR THROUGHOUT ALL MIRANDA. HOB ELEVATED. WILL CONTINUE TO MONITOR.
--- NOTE | 2018-08-07 12:59 | NUR ---
REASSESSMENT PT REMAINS ON VENT AC 12, TV 400, PEEP 5, FIO2 30%. CONTINUEING PROPOFOL GTT AT 20 MCG/KG/MIN AND PT REMAINS ABLE TO ANSWER YES/NO QUESTIONS APPORPRIATELY. VSS. AFIB, HR 70S AND BP WNL. REFUSED PAIN MEDS WHEN OFFERED. AFEBRILE. TOLERATING TF WITH MINIMAL RESIUDAL. WILL CONTINUE TO MONITOR.
--- NOTE | 2018-08-07 15:48 | NUR ---
Met with Josias this afternoon in the ICU. He remains on the vent. Sedation vacation during my visit. Pt is alert and answers questions appropriately with nodding his head or squeezing hands. He c/o his chest hurting. He denies any other pain. No c/o numbness, nausea, dizziness or other discomfort. He reports frustration from not being able to talk. He is able to use the picture board with some success. He doesn't see it well and isn't able to point, but he is able to nod his head yes/no to questions about the picture board. He is unable to write, he attempted but his hand/arm is very weak. He has swelling to both upper extremities. Some active, but mostly passive ROM done with BUE. Face washed and eyes cleaned per his request. Explained to him the series of events that lead him to be in the ICU on the vent. Explained to him the options that he currently has. Again, he is alert and off sedation during my visit. He has failed vent weaning trials the past several days, explained that we can continue to support him on the vent and continue to try and wean him. Explained to him that if he is unable to wean from the vent that a trach/peg tube would be an option in the future. Also gave him the option of transitioning to comfort care and being removed from the vent and kept comfortable with medications. He has chosen to continue to attempt to be weaned from the vent. Asked him about his code status and this information writer asked him in multiple ways. He is very clear that he wants to remain on the vent at this time, however if his heart stops he does not want to have chest compressions. Updated Dr. Smith on conversation and new code status ordered entered per Dr. Smith. Pt requesting a bull gang supervisor visit for prayer and for music therapy. LM for chaplain Gordo, to visit with pt this afternoon. Updated nursing on pt's desire for pain medication and code status change. Replaced the bilat wrist restraints and propofol resumed at previous dosage (20 mcg) prior to leaving pt's room. PC will continue to follow for symptom management and advanced care planning in the coming days.
--- NOTE | 2018-08-07 18:49 | NUR ---
SHIFT SUMMARY PT REMAINED ON VENTILATOR AND PROPOFOL GTT AT 20 MCG/KG/MIN ENTIRE SHIFT. REMAINS A/O AND ABLE TO ANSWER YES/NO QUESTIONS APPROPRIATELY. PALLIATIVE CARE SPOKE WITH PT BEDSIDE ABOUT CHILD CAREGIVER PLAN IF TRACH/FEEDING TUBE REQUIRED. PT AGREED ON DNR STATUS; STATUS CHANGED PER MD. TOELRATED TF AT GOAL RATE ENTIRE SHIFT. REMAINS IN BUE. PT TURNED Q2H AND HOB ELEVATED. UPDATED PTS STEPDAUGHTER MESERET ON PHONE. WILL GIVE BEDSIDE, HANDOFF REPORT TO WILTON RN.
--- NOTE | 2018-08-07 19:30 | NUR ---
ASSUME CARE: REPORT RECIEVED FROM OFF GOING RN NIKKI. MONITOR INTACT SHOWING A FIB HEART RATE 70'S. VENT SETTINGS AC 12,TV 400, FIO2 30%, PEEP 5, RATE 16-20'S , SPO2 97-100%. LUNG SOUNDS CLEAR UPPER LOBES WITH ADVENIGIOUS SOUNDS L FLANK AND BASES. ABDOMEN SOFT WITH BOWEL SOUNDS FOUR QUADS. RODRIGUEZ PATENT DRAINING ROBERTO URINE. RECTAL TUBE PATENT WITH BROWN LIQUID RETURN. SCROTAL EDEMA NOTED WITH SDCROTAL SLING INTACT. PAS TO LOWER EXTREMITIES , HEEL PROTECTORS AND EXTREMITIES ELEVATED ON PILLOWS SECONDARY TO PITTING WEEPING EDEMA. UPPER EXTREMITIES ALSO ELEVATED ON PILLOWS WITH WEEPING EDEMA. SX MINIMAL SECRETIONS WITH ORAL CARE ZERO TUBE FEEDING RESIDUAL WITH ORAL CARE. CONTINUE TO MONITOR AND REPORT CHANGE IN PATIENT CONDITION
--- NOTE | 2018-08-08 01:17 | NUR ---
CO ABDOMEN PAIN. STATES "THE FENTANYK ISN'T EVEN TOUCHING IT: DR BHATIA NOTIFIED . ORDERS NOTED. CPNTINUE TO MONITOR AND REPORT CHANGE IN PATIENT CONDITION
[2018-08-08 03:50] LABS: Hematocrit 26.8 % (37.0-53.0); Hemoglobin 8.4 g/dL (13.5-17.5); Mean Corpuscular HGB 29.4 pg (26.0-34.0); Mean Corpuscular HGB Conc 31.3 g/dL (31.5-36.5); Mean Corpuscular Volume 94 fL (80-100); Mean Platelet Volume 11.1 fL (9.1-12.4); Platelet Count 187 K/mm3 (150-400); RDW Coefficient Variation 16.6 % (11.7-14.2); RDW Standard Deviation 55.7 fL (35.1-46.3); Red Blood Cell Count 2.86 M/mm3 (4.30-5.90); White Blood Cell Count 5.61 K/mm3 (4.00-11.30)
[2018-08-08 04:06] LABS: Albumin, Blood 1.5 g/dL (3.4-5.0); Anion Gap 4 mmol/L (6-16); Blood Urea Nitrogen 52 mg/dL (8-24); Bun/Creatinine Ratio 44.1 (12.0-20.0); CO2, Blood 33 mmol/L (21-32); Calcium, Blood 7.7 mg/dL (8.5-10.1); Chloride, Blood 109 mmol/L (98-108); Creatinine, Blood 1.18 mg/dL (0.60-1.20); Glomerular Filtration Rate >60 (60-); Glucose, Blood 94 mg/dL (70-99); Phosphorus, Blood 2.9 mg/dL (2.5-4.9); Potassium, Blood 3.7 mmol/L (3.5-5.5); Sodium, Blood 146 mmol/L (136-145)
--- NOTE | 2018-08-08 07:25 | NUR ---
SHIFT SUMMARY REMAINS INTUBEATED SEDATED AND RESTRAINED. MONITOR INTACT SHOWING A FIB.HEART RATE 70'S. VENT SETTINGS AC 12, TV 400, FIO2 30% PEEP 5, RATE 18-20'S, SPO2 95-100%. LUNG SOUNDS CLEAR UPPER LOBES WITH ADVENTEGIOUS SOUNDS TO MID AND LOWER LOBES. TF INTFUSING AT 30ML/HR WHICH IS GOAL, WITH MINIMA; TO NO RESIDUAL. ABDOMEN SOFT WITH BOWEL SOUNDS FOUR QUADS. RODRIGUEZ PATENT DRAINING ROBERTO URINE RECTAL TUBE INACT/PATENT WITH BROWN LIQUID RETURN. GENERALIZED DEPENDENT EDEMA ESPECIALLY TO SCROTAL AND LEFT ARM. EXTREMITIES ELEVATED ON PILLOWS. WEEPING EDEMA TO L ARM HOWEVER IS IMPROVING PAST TWO DAYS. HEEL PROTECTORS IN PLACE. SEDATION OFF AT 0415 FOR SPTONTANEOUS BREATHING TRIAL. FAILED SECONDARY TO LOW VOULMES. COMMUNICATES BY NOD AND SHAKES OF HEAD AND GESTURES. APPROIATLY. CONTINUE TO MONITOR AND REPORT CHANGE IN PATIENT CONDITION.
--- NOTE | 2018-08-08 08:00 | NUR ---
INITIAL ASSESSMENT PATIENT INTUBATED AND SEDATED. PATIENT RESPONDING TO VERBAL STIMULI. PATIENT FOLLOWING SIMPLE COMMANDS. PATIENT SHAKES AND NODS HEAD TO ANSWER QUESTIONS. PATIENT AFEBRILE. PATIENT HAS NO SIGNS OF PAIN OR DISCOMFORT AT THIS TIME. PATIENT WEAK BUT ABLE TO MOVE ALL EXTREMITIES. PATIENT ON VENT SETTINGS OF AC 12, TV 400, PEEP 5, 30% FIO2. PATIENT HAS EXPIRATORY WHEEZES NOTED T/O LUNG LOBES. LOWER LOBES DIMINISHED. PATIENT HAS OCCASIONAL COUGH. SMALL AMOUNT OF THICK, RG SPUTUM BEING SUCTIONED FROM ETT. PATIENT IN A. FIB, HR 60S TO 80S. BP STABLE. PULSES 2+ IN BUES, 1+ IN BLES. SCDS IN PLACE. ABDOMEN MODERATELY DISTENDED. PIVOT 1.5 INFUSING AT GOAL RATE OF 30 MLS/ HOUR WITH 30 ML WATER FLUSH Q4H. RESIDUAL OF ZERO. RECTAL TUBE IN PLACE- DRAINING BROWN, LOOSE STOOL. RODRIGUEZ DRAINING YELLOW URINE. PATIENT SKIN IS FRAGILE, PALE, WARM TO TOUCH. PATIENT EDEMATOUS ALL OVER. WEEPING EDEMA NOTED IN SCROTUM AND L ARM. PATIENT HAS SCATTERED BRUISING. COCCYX REDDENED. SCABS NOTED. BLISTER TO L ELBOW WITH DRESSING IN PLACE. PROPOFOL INFUSING AT 20 MCG/ KG/ MINUTE, NS TKO. BED LOW, CALL LIGHT IN REACH. WILL CONTINUE TO MONITOR PATIENT FREQUENTLY THROUGHOUT SHIFT.
--- NOTE | 2018-08-08 10:31 | NUR ---
DR. 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 NO ORDERS RECEIVED AT THIS TIME.
[2018-08-08 12:02] LABS: International Normalized Ratio 1.51; Prothrombin Time Results 15.4 Sec (9.7-11.5)
--- NOTE | 2018-08-08 12:05 | NUR ---
PATIENT RESTING QUIETLY IN BED. REMAINS AFEBRILE. NO COMPLAINTS OF PAIN. PATIENT REMAINS SATTING WELL ON SAME VENT SETTINGS. LUNGS CLEAR T/O, DIMINISHED IN THE LOWER LOBES. PATIENT IN A.FIB, HR 60S TO 80S. BP STABLE. NO OTHER ACUTE CHANGES TO NOTE ON AT THIS TIME. WILL CONTINUE TO MONITOR.
--- NOTE | 2018-08-08 14:07 | NUR ---
Mr. Foss is on vent and sedated. He did not respond to voice or touch. Provided presence and prayer at bedside. crap game box person services will remain available.
--- NOTE | 2018-08-08 16:00 | NUR ---
NO ACUTE CHANGES TO NOTE ON AT THIS TIME. NO SIGNS OF PAIN OR DISCOMFORT NOTED. WILL CONTINUE TO MONITOR.
--- NOTE | 2018-08-08 18:47 | NUR ---
SHIFT SUMMARY PATIENT REMAINED INTUBATED AND SEDATED T/O SHIFT. PATIENT REMAINED FOLLOWING SIMPLE COMMANDS AND NODDING HEAD YES AND NO TO QUESTIONS. PATIENT REMAINS WEAK BUT ABLE TO MOVE ALL EXTREMITIES. PATIENT REMAINED AFEBRILE. PATIENT HAD NO SIGNS OF PAIN OR DISCOMFORT. PATIENT REMAINED SATTING WELL ON VENT SETTINGS OF AC 12, TV 400, PEEP 5, 30% FIO2. PATIENT CONTINUED TO HAVE MOIST COUGH, PRODUCING SMALL TO MODERATE AMOUNTS OF THICK, RG SPUTUM. PATIENT REMAINED IN A.FIB, HR MOSTLY 60S TO 80S. BP REMAINED STABLE. DR. VISHNU BUCK WITH MAPS OF 60 AND ABOVE. PATIENT REMAINS TOLERATING TF AT GOAL. FREE WATER INCREASED FROM 30 ML Q4H TO [address] MARES. RESIDUALS HAVE BEEN ZERO ALL DAY. RECTAL TUBE REMAINS DRAINING BROWN/ LIQUID STOOL. RODRIGUEZ REMAINS DRAINING ADEQUATE AMOUNT OF YELLOW URINE. PATIENT GIVEN OT DOSE OF 40 MG LASIX THIS SHIFT. NO CHANGE TO SKIN. PATIENT REPOSITIONED T/O SHIFT. PROPOFOL REMAINS AT 20 MCG/ KG/ MINUTE AND NS TKO INTO NEWLY PLACED PICC IN MARIAH. CL REMOVED. BED LOW, CALL LIGHT IN REACH. PATIENT APPEARS COMFORTABLE AT THIS TIME. WILL BE GIVING REPORT SHORTLY TO ONCOMING COMMUNITY ENGAGEMENT LEADER NURSE.
[2018-08-09 04:02] LABS: BASOPHILS ABSOLUTE AUTO 0.03 K/mm3 (0.00-0.23); BASOPHILS PERCENT AUTO 1 % (0-2); EOSINOPHILS ABSOLUTE AUTO 0.41 K/mm3 (0.00-0.68); EOSINOPHILS PERCENT AUTO 6 % (0-6); Hematocrit 24.7 % (37.0-53.0); IMMATURE GRAN ABSOLUTE AUTO 0.06 K/mm3 (0.00-0.10); IMMATURE GRAN PERCENT AUTO 1 % (0-1); LYMPHOCYTES ABSOLUTE AUTO 1.46 K/mm3 (0.84-5.20); LYMPHOCYTES PERCENT AUTO 22 % (21-46); MONOCYTES PERCENT AUTO 8 % (4-13); Mean Corpuscular HGB 29.9 pg (26.0-34.0); Mean Corpuscular HGB Conc 32.4 g/dL (31.5-36.5); Mean Corpuscular Volume 92 fL (80-100); Mean Platelet Volume 10.8 fL (9.1-12.4); NEUTROPHILS ABSOLUTE AUTO 4.06 K/mm3 (1.96-9.15); NEUTROPHILS PERCENT AUTO 62 % (41-73); Platelet Count 169 K/mm3 (150-400); RDW Coefficient Variation 16.7 % (11.7-14.2); RDW Standard Deviation 54.2 fL (35.1-46.3); Red Blood Cell Count 2.68 M/mm3 (4.30-5.90); White Blood Cell Count 6.52 K/mm3 (4.00-11.30)
[2018-08-09 04:15] LABS: International Normalized Ratio 1.69; Prothrombin Time Results 17.1 Sec (9.7-11.5)
[2018-08-09 04:24] LABS: Albumin, Blood 1.9 g/dL (3.4-5.0); Anion Gap 5 mmol/L (6-16); Blood Urea Nitrogen 53 mg/dL (8-24); Bun/Creatinine Ratio 45.3 (12.0-20.0); CO2, Blood 31 mmol/L (21-32); Calcium, Blood 7.7 mg/dL (8.5-10.1); Chloride, Blood 106 mmol/L (98-108); Creatinine, Blood 1.17 mg/dL (0.60-1.20); Glomerular Filtration Rate >60 (60-); Glucose, Blood 102 mg/dL (70-99); Phosphorus, Blood 3.1 mg/dL (2.5-4.9); Potassium, Blood 3.6 mmol/L (3.5-5.5); Sodium, Blood 142 mmol/L (136-145)
--- NOTE | 2018-08-09 05:42 | NUR ---
SHIFT SUMMARY NO ACUTE CHANGES THIS SHIFT. PT HAS REMAINED ON VENT. VENT SETTINGS AC 12, TV 400, PEEP 5, FIO2 30%. PT SEDATED WITH PROPOFOL AT 20 MCG/KG/MIN. PT AWAKENS EASILY TO VERBAL STIMULI AND IS ABLE TO FOLLOW COMMANDS APPROPRIATELY. OGT IN PLACE WITH TF AT 30 ML/HR GOAL. NO RESIDUALS THIS SHIFT. PICC TO MARIAH C/D/I, NS INFUSING TKO. SBW RESTRAINTS IN PLACE. RODRIGUEZ IN PLACE WITH GOOD URINE OUTPUT. RECTAL TUBE IN PLACE WITH LIQUID BROWN OUTPUT. PT WITH WEEPING EDEMA TO BUE'S. VITAL SIGNS HAVE REMAINED STABLE. WILL CONTINUE TO MONITOR AND REPORT OFF TO ONCOMING RN.
--- NOTE | 2018-08-09 08:15 | NUR ---
INITIAL ASSESSMENT PATIENT INTUBATED AND ON SEDATION. PATIENT RESPONDS TO VERBAL STIMULI, ANSWERS QUESTIONS WITH NODDING AND SHAKING OF HEAD. PATIENT WEAK BUT ABLE TO FOLLOW SIMPLE COMMANDS. PATIENT AFEBRILE. PATIENT DENIES ANY PAIN. HX OF CHRONIC L HIP PAIN. PATIENT SATTING WELL ON VENT SETTINGS OF AC 12, TV 400, PEEP 5, 30%FIO2. LUNGS CLEAR T/O, LOWER LOBES DIMINISHED. PATIENT HAS OCCASIONAL MOIST COUGH- PRODUCING SMALL AMOUNT OF THICK, RG SPUTUM. PATIENT IN A. FIB, HR 50S TO 70S. BP STABLE. SCDS IN PLACE. ABDOMEN MILDLY DISTENDED, SOFT, WITH HYPERACTIVE BS. PATIENT TOLERATING TF AT GOAL RATE. RESIDUAL OF ZERO THIS AM. 250 ML WATER FLUSH Q4H. RECTAL TUBE IN PLACE DRAINING BROWN/ LOOSE STOOL. RODRIGUEZ DRAINING YELLOW URINE WITH SEDIMENT NOTED. PATIENT EDEMATOUS. SCROTUM AND LEFT ARE WEEPING. SKIN FRAGILE. SCATTERED BRUISING NOTED. COCCYX REDDENED. SCATTERED SCABS NOTED. BLES DRY AND FLAKY. PROPOFOL INFUSING AT 20 MCG/ KG/ MINUTE, NS TKO. BED LOW, CALL LIGHT IN REACH. WILL CONTINUE TO MONITOR PATIENT FREQUENTLY THROUGHOUT SHIFT.
--- NOTE | 2018-08-09 12:10 | NUR ---
PATIENT RESTING QUIETLY IN BED. PATIENT AFEBRILE. PATIENT DENIES PAIN. PATIENT REMAINS SATTING WELL ON SAME VENT SETTINGS. SCANT AMOUNT OF FROTHY, LIGHT RG SECRETIONS BEING SUCTIONED FROM ETT. PATIENT REMAINS TOLERATING TF WELL. RESIDUAL OF ZERO. 40 MG IV LASIX GIVEN PER NEW ORDER. BPS STILL SOFT. DR. AHN AWARE. NO OTHER ACUTE CHANGES TO NOTE ON AT THIS TIME. WILL CONTINUE TO MONITOR.
--- NOTE | 2018-08-09 15:56 | NUR ---
Clinical Visit: Pt is lightly sedated, on vent. He is able to nod and shake his head to answer questions. He indicates that he is not in pain at this time. Bhumika, nurse, is bedside and reports that he has fentanyl if he does have some pain. Daughter in law from [place] calls and checks in on the patient occasionally. Plan is to do PEG and Trach in a couple weeks if weaning isn't accomplished. This is a change in goals from a couple days ago. Will remain available to discuss with pt if needed. There seems to be plenty of time to do this if the placement of PEG/Trach is a week to two away from happening. Will continue to follow up.
--- NOTE | 2018-08-09 16:00 | NUR ---
PATIENT RESTING QUIETLY IN BED UPON ENTERING ROOM. PATIENT DENIES PAIN. PATIENT REMAINS AFEBRILE. PATIENT REMAINS SATTING WELL ON SAME VENT SETTINGS. PATIENT IN A. IFB, HR 60S TO 80S. BP STABLE. PATIENT REMAINS TOLERATING TF WELL. RESIDUAL OF ZERO. NO OTHER ACUTE CHANGES TO NOTE ON AT THIS TIME. WILL CONTINUE TO MONITOR.
--- NOTE | 2018-08-09 17:14 | NUR ---
STEP-LEOLA CARL CALLED FOR AN UPDATE.
--- NOTE | 2018-08-09 18:21 | NUR ---
SHIFT SUMMARY PATIENT REMAINED INTUBATED AND ON SEDATION. PATIENT REMAINS RESPONDING TO VERBAL STIMULI AND FOLLOWING SIMPLE COMMANDS. PATIENT HAS REMAINED AFEBRILE. PATIENT HAD NO COMPLAINTS OR SIGNS OF PAIN THIS SHIFT. PATIENT REMAINED SATTING WELL ON SAME VENT SETTINGS. SCANT AMOUNT OF FROTHY, LIGHT RG SPUTUM IS BEING SUCTIONED FROM ETT. PATIENT HAS REMAINED IN A.FIB, HR 50S TO 80S. BP SOFT A COUPLE OF TIMES- MOSTLY STABLE. PATIENT REMAINS TOLERATING TF AT GOAL RATE WITH 250 CC WATER FLUSH Q4H. RESIDUALS HAVE BEEN ZERO ALL SHIFT. PATIENT HAD 600 CC LIQUID, BROWN STOOL OUT FROM RECTAL TUBE. RODRIGUEZ DRAINING ADEQUATE AMOUNT OF YELLOW URINE WITH SEDIMENT NOTED. PATIENT PLACED ON SCHEDULED 40 MG LASIX BID TODAY. NO CHANGE IN SKIN. PATIENT REPOSITIONED T/O SHIFT. NS TKO, PROPOFOL REMAINS AT 20 MCG/ KG/ MINUTE. BED LOW, CALL LIGHT IN REACH. PATIENT APPEARS COMFORTABLE AT THIS TIME. WILL BE GIVING REPORT TO ONCOMING ENERGY RISK MANAGEMENT ANALYST NURSE SHORTLY.
--- NOTE | 2018-08-09 19:45 | NUR ---
ASSUMED CARE REPORT RECIEVED. PT IS RESTING IN BED ON VENT. PT SEDATED WITH PROPOFOL AT 20 MCG/KG/MIN. PT AROUSES TO VERBAL STIMULI EASILY AND IS ABLE TO SHAKE HEAD YES OR NO TO QUESTIONS. PT SHAKES HEAD NO TO PAIN OR DISCOMFORT. VENT SETTINGS AC 12, TV 400, PEEP 5, FIO2 30%. VITAL SIGNS STABLE AT THIS TIME. HR AFIB 60-80'S. OGT IN PLACE WITH TF AT 30 ML/HR GOAL RATE, NO RESIDUALS. PICC TO MARIAH C/D/I, NS TKO. RODRIGUEZ IN PLACE WITH CLEAR YELLOW OUTPUT NOTED. RECTAL TUBE IN PLACE WITH LIQUID BROWN OUTPUT. SBW RESTRAINTS IN PLACE. PT WITH WEEPING EDEMA TO LEFT ARM. WILL CONTINUE TO MONITOR.
[2018-08-10 03:25] LABS: BASOPHILS ABSOLUTE AUTO 0.02 K/mm3 (0.00-0.23); BASOPHILS PERCENT AUTO 0 % (0-2); EOSINOPHILS ABSOLUTE AUTO 0.54 K/mm3 (0.00-0.68); EOSINOPHILS PERCENT AUTO 8 % (0-6); Hematocrit 25.4 % (37.0-53.0); Hemoglobin 8.2 g/dL (13.5-17.5); IMMATURE GRAN ABSOLUTE AUTO 0.05 K/mm3 (0.00-0.10); IMMATURE GRAN PERCENT AUTO 1 % (0-1); LYMPHOCYTES ABSOLUTE AUTO 1.56 K/mm3 (0.84-5.20); LYMPHOCYTES PERCENT AUTO 23 % (21-46); MONOCYTES ABSOLUTE AUTO 0.43 K/mm3 (0.16-1.47); MONOCYTES PERCENT AUTO 6 % (4-13); Mean Corpuscular HGB 29.7 pg (26.0-34.0); Mean Corpuscular HGB Conc 32.3 g/dL (31.5-36.5); Mean Corpuscular Volume 92 fL (80-100); Mean Platelet Volume 10.5 fL (9.1-12.4); NEUTROPHILS ABSOLUTE AUTO 4.13 K/mm3 (1.96-9.15); NEUTROPHILS PERCENT AUTO 61 % (41-73); Platelet Count 168 K/mm3 (150-400); RDW Coefficient Variation 16.8 % (11.7-14.2); RDW Standard Deviation 53.8 fL (35.1-46.3); Red Blood Cell Count 2.76 M/mm3 (4.30-5.90); White Blood Cell Count 6.73 K/mm3 (4.00-11.30)
[2018-08-10 03:43] LABS: International Normalized Ratio 1.8; Prothrombin Time Results 18.1 Sec (9.7-11.5)
[2018-08-10 03:46] LABS: Albumin, Blood 1.8 g/dL (3.4-5.0); Anion Gap 6 mmol/L (6-16); Blood Urea Nitrogen 52 mg/dL (8-24); Bun/Creatinine Ratio 49.1 (12.0-20.0); CO2, Blood 31 mmol/L (21-32); Calcium, Blood 7.6 mg/dL (8.5-10.1); Chloride, Blood 103 mmol/L (98-108); Creatinine, Blood 1.06 mg/dL (0.60-1.20); Glomerular Filtration Rate >60 (60-); Glucose, Blood 90 mg/dL (70-99); Magnesium, Blood 1.9 mg/dL (1.6-2.4); Phosphorus, Blood 3.1 mg/dL (2.5-4.9); Potassium, Blood 3.3 mmol/L (3.5-5.5); Sodium, Blood 140 mmol/L (136-145)
[2018-08-10 05:40] LABS: PCO2 Arterial 38.8 mmHg (35-45); PO2 Arterial 83.7 mmHg (80-100); pH Blood Arterial 7.51 (7.35-7.45)
--- NOTE | 2018-08-10 06:17 | NUR ---
SHIFT SUMMARY NO ACUTE CHANGES THIS SHIFT. PT REMAINS ON VENT, SETTINGS UNCHANGED. PT AWAKENS EASILY TO VERBAL STIMULI AND IS FOLLOWING COMMANDS APPROPRIATELY. PROPOFOL AT 20 MCG/KG/MIN AND NS TKO. PICC TO MARIAH C/D/I. OGT IN PLACE WITH TF AT 30 ML/HR GOAL RATE, NO RESIDUALS. RODRIGUEZ IN PLACE WITH GOOD URINE OUTPUT THIS SHIFT. RECTAL TUBE REMAINS IN PLACE WITH LIQUID BROWN OUTPUT NOTED. SBW RESTRAINTS ARE IN PLACE. VITAL SIGNS HAVE REMAINED STABLE. PT CONTINUES TO HAVE LOW TV'S DURING AM BREATHING TRIAL DESPITE COACHING. WILL CONTINUE TO MONITOR AND REPORT OFF TO ONCOMING RN.
--- NOTE | 2018-08-10 10:55 | NUR ---
EXTUBATE: PT'S SEDATION TURNED OFF AND SWITCHED TO PS 10 PEEP 5 AT 0830. PT TOELRATED IT WITH VOLUMES ABOUT 200-250ML. DR. AHN REASSESSED AT 0915 AND GAVE ORDERS TO EXTUBATE. PT EXTUBATED AT 1030 AND PLACED ON 3L/NC. PT STARTED TO DESAT BUT HE WAS MOUTH BREATHING SO NC PLACED IN THE MOUTH AND PT'S SPO2 INCREASED UP TO 99%. OXYGEN TURNED DOWN TO 2L/NC AND PT HAS SPO2 95%. PT IS HAVING TROUBLE CLEARING HIS SECRETIONS. PT DEEP SUCTIONED ORALLY, BUT SOON AFTER HAS GURGLE IN HIS THROAT AGAIN THAT HE IS UNABLE TO CLEAR. PT HAS EXTREMELY WEAK GAG REFLEX. DR. AHN GAVE OK TO HOLD OFF ON FEEDING TUBE FOR TODAY AND WILL REASSESS TOMORROW. CONTINUING TO MONITOR.
--- NOTE | 2018-08-10 13:24 | NUR ---
REASSESSMENT: PT WAS EXTUBATED THIS MORNING AND HAS BEEN MAINTAINING SPO2 95% ON 2L/NC VIA MOUTH. HIS BREATH SOUNDS ARE STILL COARSE HE IS DOING A POOR JOB OF CLEARING HIS SECRETIONS. HIS COUGH IS VERY WEAK. HE IS IN AFIB, RATE IN THE 120S, SBP 140S. SPOKE WITH DR. AHN ABOUT THIS AND RECEIVED ORDER FOR ONE TIME DOSE OF METOPROLOL, GIVEN AND RATE CAME DOWN TO THE 90S. OG TUBE OUT. PT GIVEN SWAB AND WAS NOT ABLE TO GET THE WATER OFF OF IT. WILL CONTINUE TO REASSESS SWALLOWING CAPABILITY. RECTAL TUBE REMAINS IN PLACE DRAINING LIQUID STOOL. CONTINUING TO MONITOR.
--- NOTE | 2018-08-10 17:41 | NUR ---
INTUBATE: PT'S MENTATION WAS DECLINING THIS AFTERNOON, NOT ABLE TO ANSWER QUESTIONS EASILY AND GETTING MORE DIFFICULT TO WAKE UP. SPOKE WTIH DR. AHN AND RECEIVED OK TO PLACE BIPAP AND TO GO AHEAD AND PLACE DOBHOFF FOR TUBE FEEDINGS. FIRST ATTEMPT TO PLACE DOBHOFF ENDED UP IN PT'S LUNG. WHEN TRYING AGAIN TO PLACE DOBHOFF PT'S SPO2 DROPPED TO 68%. OXYGEN INCREASED, DOBHOFF REMOVED AND BIPAP INITIATED. PT WAS ASYNCHRONOUS WITH THE BIPAP, PULLING LOW VOLUMES. DR. AHN NOTIFIED AND CAME TO THE BEDSIDE. AFTER TRYING MULTIPLE SETTINGS ON THE BIPAP WITH RT DR. AHN DECIDED TO REINTUBATE. PT HAD PREVIOUSLY STATED THAT HE WOULD WANT A TRACH AND A PEG IF HE COULDN'T BE EXTUBATED. PALLIATIVE CARE NOTE SAYS PT DOES NOT WANT COMPRESSIONS ONLY. PT REINTUBATED AT 1505 WITH JUST PROPFOL RESTARTED. OG PLACED. LARGE AMT OF RED SPUTUM SUCTIONED OUT OF ETT. PT'S GRANDDAUGHTER AT THE BEDSIDE AFTERWARDS AND WAS FULLY UPDATED.
[2018-08-10 18:03] LABS: PCO2 Arterial 56.7 mmHg (35-45); PO2 Arterial 191 mmHg (80-100); pH Blood Arterial 7.33 (7.35-7.45)
--- NOTE | 2018-08-10 19:34 | NUR ---
Clinical Visit: Pt is off the vent, but nurse reports that they have to start bipap. Pt does not have a gag reflex at this time, per nurse. Family has not called or come by. Will remain available.
--- NOTE | 2018-08-11 00:50 | NUR ---
ASSUMED PT CARE AT 1915 PER REPORT PT WAS REINTUBATED AROUND 1730 DUE TO PT HAVING DECREASED MENTATION AND NOT MAINTAINING ADEQUATE OXYGENATION. VENT SETTINGS AC 12, TV 400, PEEP 5, FIO2 60% WITH OXYGEN SATURATIONS 100%. PROPOFOL INFUSING VIA MARIAH PICC AT 20MCG/KG/MIN. PT ABLE TO OPEN EYES TO VERBAL STIMULI, SHAKE HEAD YES/NO TO QUESTIONS, AND FOLLOW COMMANDS. PT DENIED ANY PAIN, BUT SHOOK HIS HEAD YES TO BEING UNCOMFORTABLE. PROPOFOL INCREASED TO 25MCG/KG/MIN FOR COMFORT. SUCTIONED COPIOUS AMOUNTS OF BLOODY SECRETIONS ORALLY. MODERATE AMOUNTS OF BLOOD TINGED SECRETIONS SUCTIONED FROM ETT. NO VISIBLE TRAUMA TO ORAL CAVITY; OTHER THAN TO ROOF OF MOUTH APPEARS TO HAVE MINIMAL ABRASIONS. LUNG SOUNDS ARE VERY COARSE T/O; PT HAS A VERY WEAK COUGH WITH NO NOTED GAG REFLEX DURING ORAL CARE. HEART TONES ARE DISTANT; PT REMAINS IN AFIB WITH HR IN THE 70'S. PIVOT 1.5 INFUSING AT GOAL OF 30MLS/HR WITH NO RESIDUALS NOTED. RODRIGUEZ CATH IS PATENT AND DRAINING TO GRAVITY; YELLOW URINE NOTED WITH SEDIMENT. RECTAL TUBE PATENT AND DRAINING TO GRAVITY; RG IN COLOR. PT APPEARS COMFORTABLE AT THIS TIME. NO FAMILY AT BEDSIDE. PT REMAINS OUT OF RESTRAINTS D/T PT BEING REDIRECTABLE AND NO PURPOSEFUL MOVEMENT TOWARD TUBE D/T POOR ROM, VERY EDEMATOUS AND WEAK.
[2018-08-11 03:15] LABS: BASOPHILS ABSOLUTE AUTO 0.02 K/mm3 (0.00-0.23); BASOPHILS PERCENT AUTO 0 % (0-2); EOSINOPHILS ABSOLUTE AUTO 0.14 K/mm3 (0.00-0.68); EOSINOPHILS PERCENT AUTO 2 % (0-6); Hemoglobin 7.9 g/dL (13.5-17.5); IMMATURE GRAN ABSOLUTE AUTO 0.06 K/mm3 (0.00-0.10); IMMATURE GRAN PERCENT AUTO 1 % (0-1); LYMPHOCYTES ABSOLUTE AUTO 1.58 K/mm3 (0.84-5.20); LYMPHOCYTES PERCENT AUTO 17 % (21-46); MONOCYTES ABSOLUTE AUTO 0.56 K/mm3 (0.16-1.47); MONOCYTES PERCENT AUTO 6 % (4-13); Mean Corpuscular HGB 29.5 pg (26.0-34.0); Mean Corpuscular HGB Conc 31.6 g/dL (31.5-36.5); Mean Corpuscular Volume 93 fL (80-100); Mean Platelet Volume 10.8 fL (9.1-12.4); NEUTROPHILS ABSOLUTE AUTO 7.09 K/mm3 (1.96-9.15); NEUTROPHILS PERCENT AUTO 75 % (41-73); Platelet Count 177 K/mm3 (150-400); RDW Coefficient Variation 16.7 % (11.7-14.2); RDW Standard Deviation 55.7 fL (35.1-46.3); Red Blood Cell Count 2.68 M/mm3 (4.30-5.90); White Blood Cell Count 9.45 K/mm3 (4.00-11.30)
[2018-08-11 03:30] LABS: Anion Gap 6 mmol/L (6-16); Blood Urea Nitrogen 58 mg/dL (8-24); Bun/Creatinine Ratio 56.3 (12.0-20.0); CO2, Blood 31 mmol/L (21-32); Calcium, Blood 7.4 mg/dL (8.5-10.1); Chloride, Blood 104 mmol/L (98-108); Creatinine, Blood 1.03 mg/dL (0.60-1.20); Glomerular Filtration Rate >60 (60-); Glucose, Blood 105 mg/dL (70-99); Potassium, Blood 3.4 mmol/L (3.5-5.5); Sodium, Blood 141 mmol/L (136-145)
[2018-08-11 03:38] LABS: International Normalized Ratio 1.87; Prothrombin Time Results 18.7 Sec (9.7-11.5)
--- NOTE | 2018-08-11 03:42 | NUR ---
UPDATE PT CONTINUES TO HAVE COPIOUS AMOUNTS OF BLOOD SUCTIONED FROM BACK OF THROAT AND ORAL CAVITY. BLOOD IS ALSO RUNNING DOWN FROM NOSE. HEMOGLOBIN THIS AM WENT FROM 8.2 TO 7.9. WILL CONTINUE TO MONITOR BLOOD OUTPUT AND UPDATE PHYSICIAN ACCORDINGLY. 50CC RESIDUAL FROM OG THAT WAS DARK RED IN COLOR WELL.
[2018-08-11 05:26] LABS: PCO2 Arterial 35.6 mmHg (35-45); PO2 Arterial 81.4 mmHg (80-100); pH Blood Arterial 7.54 (7.35-7.45)
--- NOTE | 2018-08-11 06:45 | NUR ---
END OF SHIFT SUMMARY PT HAS REMAINED INTUBATED AND SEDATED T/O SHIFT. STILL ABLE TO OPEN EYES, NOD HEAD YES/NO TO QUESTIONS, WELL FOLLOW COMMANDS WITH PROPOFOL AT 25MCG/KG/MIN. LUNG SOUNDS HAVE GONE FROM COARSE T/O TO DIMINISHED. STILL SUCTIONING MODERATE AMOUNTS OF BLOODY SECRETIONS FROM ETT, WELL COPIOUS AMOUNTS FROM DEEP SUBGLOTTIC SUCTIONING; 200CC TOTAL FROM ORAL SUCTION CANNISTER OF BRIGHT RED BLOOD. PT CONTINUES TO OOZE BLOOD FROM HIS MOUTH AND NOSTRILS; HEMOGLOBIN TRENDED FROM 8.2 TO 7.9. PIVOT 1.5 CONTINUES AT GOAL OF 30CC/HR WITH ONE 50CC RESIDUAL AT 0400 THAT WAS DARK RED IN COLOR; REINSTILLED. WATER FLUSHES 250CC Q4HRS. PT HAS REMAINED IN AFIB WITH HR 60-80'S. HELD LASIX YESTERDAY D/T LOW BP'S. RODRIGUEZ REMAINS PATENT AND DRAINING YELLOW URINE TO GRAVITY. RECTAL TUBE ALSO REMAINS PATENT AND DRAINING TO GRAVITY. PICC TO LEFT UPPER ARM; PATENT WITH DRSG CDI. REPORTED OFF TO KARRIE MULLINS
--- NOTE | 2018-08-11 07:41 | NUR ---
Recieved report from Silva YOON. Patient lying supine with HOB at >30 degrees. He is intubated and sedated. He has 8.0 ET and 27cm at lips with vent settings at AC 12, TV 400, FiO2 30% and PEEP 5.0 and sats of 98%. He has OG in place with Pivot 1.5 at 30ml/hr with 30ml water flushed Q4 infusing. He has PICC line in MARIAH dressing intact and site WNL's infusing Propofol at 25 mcg/kg/min and just reduced to 15mcg/kg/min. He has 14 Fr. nichols draining to gravity clear yellow urine. He has SCD'd bilaterally to LE's. He has mckenzie red blood from mouth, nose , and ET r/t to extubation/intubation/dobhoff placements. Have towels on neck and chest absorbing. he also has pink foam heel protectors in place.
--- NOTE | 2018-08-11 09:30 | NUR ---
Patient continues to have blood coming from nose, mouth, ET suction. He is alert and able to knod answers to questions. States back hurts, but currently does not want meds. Dr. Garcias by and we are holding lasix and metoprolol r/t Hypotension 80-90's systolic. No vent setting changes and has sats in the low to mid 90%'s. Tolerated med OG tube. No other significant chnages.
--- NOTE | 2018-08-11 11:44 | NUR ---
Increased Propofol to 25mcg/kg/min to sedate a little more for bath. Started new ABx and will dc Vanco. Started potassium riders for low potassium. No other significant changes.
--- NOTE | 2018-08-11 13:37 | NUR ---
Did full cleaning of mouth again and repositioned, started second potassium. Still slightly hypotensive. redoing labs at 1600 to see if needing blood product. Going to change out trach securment as it is covered in blood. Patient still able to knod to questions and Propofol remains at 25 mcg/kg/min.
--- NOTE | 2018-08-11 15:00 | NUR ---
Pt's granddaughter is at his bedside, she is on her phone with her mom and using [employer] to communicate. Josias is laying towards his right side. Currently on the vent, having a little bleeding from his mouth and nose. Dtr and granddaughter have questions which were answered by Cristobal, his nurse today. PC will continue to follow. Will continue to have discussions with pt re: plan of care and future medical treatment options. He appears to be resting comfortably with his eyes closed at this time.
[2018-08-11 16:27] LABS: Hematocrit 22.6 % (37.0-53.0); Hemoglobin 7.3 g/dL (13.5-17.5)
--- NOTE | 2018-08-11 17:30 | NUR ---
Performed more oral care and gave quick partial bed bath. Repositioned. Blood has not really slowed down and called Dr Garcias and placed order for 1 PRBC as HgB dropped 7.3. Systolic 80-100.Sats on original vent settings mid 90%.
--- NOTE | 2018-08-11 18:45 | NUR ---
Worked with RT to change vent circuit and bit block and RT securement device. Pull very large clot from back of throat and more oral cleaning. After all done right nares had copius amount of thin blood and called Dr Garcias about having ER place Rhino Rocket in Nares. ER Dr Arnold and placed two , one in each nare and slowed dowen tremendously, but continue to suction clots from throat and mouth. Place 4x4 under nose with small amount of drainage. gave report to Silva YOON and she will start PRBC.
--- NOTE | 2018-08-11 21:30 | NUR ---
ASSUMED PT CARE AT 1915 PT REMAINS INTUBATED WITH VENT SETTINGS: AC 12, TV 400, PEEP 5, AND FIO2 30% WITH OXYGEN SATURATIONS 100%. PROPOFOL INFUSING AT 10MCG/KG/MIN; HOWEVER, PT ABLE TO OPEN EYES SPONTANEOUSLY, FOLLOW COMMANDS, AND SHAKE HEAD YES/NO TO QUESTIONS. PT REMAINS FREE OF BILATERAL WRIST RESTRAINTS SECONDARY TO GENERALIZED WEAKNESS AND PT ABLE TO DEMONSTRATE UNDERSTANDING OF NOT PULLING AT ETT OR SUCTION CORDS. PRIOR TO SHIFT CHANGE PT HAD TWO RHINO ROCKET'S PLACED IN BOTH NOSTRILS SECONDARY TO CONSTANT BLEEDING; HOWEVER, BLOOD IS STILL DRIPPING FROM RIGHT NOSTRIL. PT CONTINUES TO HAVE COPIOUS AMOUNTS OF BLOOD SUCTIONED FROM ORAL CAVITY. BLOOD SLIP WAS SENT OFF AT THE BEGINNING OF SHIFT FOR ONE UNIT OF PRBC'S. PIVOT 1.5 CONTINUES AT 30MLS/HR WITH NO RESIDUALS. RODRIGUEZ CATH PATENT AND DRAINING TO GRAVITY. RECTAL TUBE HAS DARK GREEN STOOL NOTED. NO FAMILY AT BEDSIDE.
--- NOTE | 2018-08-11 23:15 | NUR ---
CALL PLACED TO DR. WOLF REGARDING FOLLOW UP H&H POST BLOOD TRANSFUSIONS. ORDERS TO OBTAIN LAB
[2018-08-11 23:32] LABS: Hematocrit 22.6 % (37.0-53.0); Hemoglobin 7.4 g/dL (13.5-17.5)
--- NOTE | 2018-08-12 00:10 | NUR ---
CALL PLACED TO DR. WOLF IN REGARDS TO H&H ONLY IMPROVING BY 0.1 AFTER BLOOD TRANSFUSION. NEW ORDERS TO TRANSFUSE ANOTHER UNIT.
[2018-08-12 04:34] LABS: BASOPHILS ABSOLUTE AUTO 0.03 K/mm3 (0.00-0.23); BASOPHILS PERCENT AUTO 0 % (0-2); EOSINOPHILS ABSOLUTE AUTO 0.36 K/mm3 (0.00-0.68); EOSINOPHILS PERCENT AUTO 4 % (0-6); Hematocrit 24.7 % (37.0-53.0); IMMATURE GRAN ABSOLUTE AUTO 0.05 K/mm3 (0.00-0.10); IMMATURE GRAN PERCENT AUTO 1 % (0-1); LYMPHOCYTES ABSOLUTE AUTO 1.44 K/mm3 (0.84-5.20); LYMPHOCYTES PERCENT AUTO 17 % (21-46); MONOCYTES ABSOLUTE AUTO 0.56 K/mm3 (0.16-1.47); MONOCYTES PERCENT AUTO 7 % (4-13); Mean Corpuscular HGB 29.6 pg (26.0-34.0); Mean Corpuscular HGB Conc 32.4 g/dL (31.5-36.5); Mean Corpuscular Volume 92 fL (80-100); Mean Platelet Volume 10.7 fL (9.1-12.4); NEUTROPHILS ABSOLUTE AUTO 5.83 K/mm3 (1.96-9.15); NEUTROPHILS PERCENT AUTO 70 % (41-73); Platelet Count 176 K/mm3 (150-400); RDW Coefficient Variation 16.3 % (11.7-14.2); White Blood Cell Count 8.27 K/mm3 (4.00-11.30)
[2018-08-12 04:47] LABS: International Normalized Ratio 1.55; Prothrombin Time Results 15.8 Sec (9.7-11.5)
[2018-08-12 04:56] LABS: Anion Gap 4 mmol/L (6-16); Blood Urea Nitrogen 54 mg/dL (8-24); Bun/Creatinine Ratio 66.9 (12.0-20.0); CO2, Blood 31 mmol/L (21-32); Calcium, Blood 7.4 mg/dL (8.5-10.1); Chloride, Blood 105 mmol/L (98-108); Creatinine, Blood 0.81 mg/dL (0.60-1.20); Glomerular Filtration Rate >60 (60-); Glucose, Blood 101 mg/dL (70-99); Magnesium, Blood 2.1 mg/dL (1.6-2.4); Potassium, Blood 3.3 mmol/L (3.5-5.5); Sodium, Blood 140 mmol/L (136-145)
--- NOTE | 2018-08-12 05:02 | NUR ---
PLACED CALL TO DR. WOLF; AFTER REPOSITIONING PT TO LEFT SIDE BLOOD PRESSURES STARTED TO DECLINE. PROPOFOL WAS STOPPED AT 0430 AND PRESSURES CONTINUED TO BE LOW WITH MAP'S 40-50'S. DR. WOLF WRITING ORDERS FOR FLUIDS.
[2018-08-12 05:06] LABS: PCO2 Arterial 43.5 mmHg (35-45); PO2 Arterial 91.4 mmHg (80-100); pH Blood Arterial 7.46 (7.35-7.45)
--- NOTE | 2018-08-12 05:30 | NUR ---
SBT PT OFF SEDATION. CHANGED TO SPONTANEOUS WITH PRESSURE SUPPORT 15/5; FIO2 30%. RR MAINTAINED 12-24. PT ABLE TO PULL GREATER THAN 300 TV; HR MAINTAINED 70-80'S; HOWEVER, BLOOD PRESSURES WERE LOW WITH MAPS LESS THAN 65 MM HG. PT REMAINED CALM AND WAS ABLE TO FOLLOW COMMANDS ADEQUATELY.
--- NOTE | 2018-08-12 05:59 | NUR ---
END OF SHIFT SUMMARY INTUBATED AND ON LIGHT SEDATION. PROPOFOL INCREASED TO 20MCG/KG/MIN AT BEGINNING OF SHIFT SECONDARY TO PT BEING WIDE AWAKE AND NODDING HEAD YES TO BEING UNCOMFORTABLE. PROPOFOL AT 20MCG/KG/MIN PT STILL ABLE TO OPEN EYES TO VERBAL STIMULI; HOWEVER, LATER IN THE SHIFT PRIOR TO SBT HIS PRESSURES STARTING DECLINING WITH MAP'S IN THE 40-50'S. PROPOFOL PLACED ON STANDBY; PT FULLY AWAKE AND FOLLOWING COMMANDS. NEW ORDERS FOR LR RUNNING AT 125MLS/HR. LUNG SOUNDS REMAIN CLEAR, BUT DIMINISHED TO RLL. SCANT AMOUNT OF THIN, BLOODY SECRETIONS SUCTIONED FROM ETT. COPIOUS AMOUNTS OF BLOOD AND CLOTS SUCTIONED FROM ORAL CAVITY, WELL DEEP SUBGLOTTIC SUCTIONING. RHINO ROCKETS REMAIN IN PLACE WITH BLOOD CONSTANTLY DRIPPING FROM RIGHT NOSTRIL. PT RECEIVED TWO UNITS OF PRBC'S THIS SHIFT. PIVOT 1.5 REMAINS AT GOAL OF 30MLS/HR WITH NO RESIDUALS NOTED. RECTAL TUBE REMAINS PATENT AND DRAINING TO GRAVITY; LOOSE, DARK GREEN AND TARRY. RODRIGUEZ CATH REMAINS PATENT AND DRAINING TO GRAVITY; YELLOW WITH SEDIMENT. PT CONTINUES TO BE VERY EDEMATOUS; WEEPING FROM LUE. EXTREMITIES ELEVATED ABLE. NO CHANGE TO VENT SETTINGS: AC 12, TV 400, PEEP 5, FIO2 30%; OXYGEN SATURATIONS 100%. NO FAMILY AT BEDSIDE.
--- NOTE | 2018-08-12 07:05 | NUR ---
Recieved report from Silva YOON. Patient laying supine in bed with HOB at 30 degrees. He is wearing BIPAP 15/10 BU 12 FiO2 30% and sats 96%. He remains responsive to pain and no verbal communication and does no follow commands. He occassionally opens eyes and no tracking. He has Dobhoff infusing Pivot 1.5 at 40ml/hr and 250 free water flushes Q4, sodium still high. He has 20 ga IV LFA dressing intact and site WNL's and is infusing Precedex at 0.3 mcg/kg/hr. He also has 20 ga IV RFA flushed and SL'd. He has bilateral soft wist restraint that were released and circulation and skin checked and re-applied. He has 16 Fr. nichols drainng to gravity cloudy tea colored urine. Dr Pratt is here now and increased Free water to 350ml Q4. Dr pratt stated to place Flomax on hold while Nichols in place.
--- NOTE | 2018-08-12 08:27 | NUR ---
Recieved report from Silva YOON. Patient is intubated and lightly sedated. He has 8.0 ET and is 26 at lips with vent settings AC 12, TV 400, FiO2 30, PEEP 5.0 and sats mid 90%'s. He alert and knods to answer questions. He has two rhino rockes place last night one in each nares and seems to of slowed blood flow from nose slightly. He has constant oral care and suctioning blood clots from mouth and constant face washing and towel change from blood absorbtion. He has 14 Fr. Collier draining to gravity yellow urine with sediment. He has rectal tube in place witjh dark green liquid stool. He has PICC line in place MARIAH dressining intact and site WNL's with clotted blood under dressing. It is infusing LR at 125ml/hr, Propofolat 10 mcg/kg/min, and potassium riders of total 40 Meq for low potassium.
--- NOTE | 2018-08-12 09:30 | NUR ---
Patient tolerated PO meds down tube well. Removed very large blood clot from back of throat and did am care. Systolic 90's, second potassium rider infusing, LR at 125ml/hr, and propofol 10mcg/kg/min. Placed on Sponateous mode at 0845 at PS 15 FiO2 30%, and has tolerated well.
--- NOTE | 2018-08-12 11:43 | NUR ---
ASSUMED CARE REPORT FROM HARPREET YOON. PT. AWAKENS EASILY TO VERBAL STIMULI. SHAKES HEAD YES AND NO TO QUESTIONS. PT SHAKES HEAD NO TO PAIN AT THIS TIME. REMAINS OUT OF BILAT WRIST RESTRAINTS. PT. CURRENTLY ON PRESSURE SUPPORT OF 15, PEEP 5. PT TVS IN AROUND 280S. PT. HAS PICC LINE TO LEFT UPPER ARM. PT HAS TUBE FEED INFUSING, RESIDUAL OF 20ML. PT. HAS RODRIGUEZ IN PLACE DRAINING GRAVITY. SMALL AMOUNT OF RED FLUID WITH ORAL SUCTIONING. GAUZE REPLACED UNDER RHINO ROCKET. VSS AT THIS TIME.
--- NOTE | 2018-08-12 18:29 | NUR ---
SHIFT SUMMARY PT. REMAINS INTUBATED WITH MILD SEDATION. PT. CURRENTLY ON PROP AT 10MCG/KG/MIN AWAKENS EASILY TO VERBAL STIMULI AND SHAKES HEAD YES AND NO TO QUESTIONS. PT. VSS T/O SHIFT. CONTINUES WITH RHINO ROCKET TO NOSE WITH MINIMAL EXTERNAL DRAINAGE NOTED, HOWEVER CONTINUE TO SUCTION RED FLUID FROM THE BACK OF PT THROAT ALONG WITH ETT. PT. DENIES PAIN T/O SHIFT BY SHAKING HEAD NO WHEN ASKED. NADN. REPORT TO ONCRAY RN
--- NOTE | 2018-08-12 19:55 | NUR ---
CARE ASSUMED REPORT RECEIVED, CARE ASSUMED AT 1900. PT INTUBATED, SEDATED WITH PROPOFOL BUT OPENS EYES SPONTANEOUSLY AND ANSWERS YES/NO QUESTIONS. PT ABLE TO MOVE ALL EXTREMITIES BUT VERY WEAK. PT DENIES PAIN/DISCOMFORT. TOLERATES CARES, SOME FACIAL GRIMACING NOTED WITH ORAL CARE AND REPOSITIONING. PT DECLINES PAIN MEDICATIONS. SEE SHIFT ASSESSMENT. VITALS STABLE. SEE FLOWSHEET. PT UNRESTRAINED, NO SIGNS OF REACHING FOR TUBES/LINES DURING ASSESSMENT AND ADL'S. CALL LIGHT GIVEN TO PATIENT, BUT PT UNABLE TO DEMONSTRATE USE HE IS TOO WEAK. PT DID MAKE CORRECT ATTEMPT TO PUSH RED BUTTON. WILL CONTINUE TO CLOSELY MONITOR.
--- NOTE | 2018-08-12 20:28 | NUR ---
FAMILY CONCERNS PT'S DAUGHER, MESERET, CALLED AND ASKS "WHAT WOULD IT TAKE FOR ME TO GET MY DAD HOME? I PROMISED HIM I WOULD DO THIS." ENCOURAGED PT TO HAVE CONVERSATION WITH PHYSICIAN ABOUT PLAN OF CARE OPTIONS. MESERET EXPLAINED SHE WORKS OUT OF TOWN AND WOULD HAVE TO MAKE A PLAN TO GET HERE TO DO THAT. WILL INFORM DAY SHIFT OF PT'S FAMILY'S CONCERNS FOR MD TO ADDRESS ON ROUNDS, WILL ENCOURAGE POSSIBLE FACILITATION OF PHONE CALL BETWEEN EITHER PHYSICIAN OR PALLIATIVE CARE AND DAUGHTER.
[2018-08-13 05:35] LABS: BASOPHILS ABSOLUTE AUTO 0.02 K/mm3 (0.00-0.23); BASOPHILS PERCENT AUTO 0 % (0-2); EOSINOPHILS ABSOLUTE AUTO 0.24 K/mm3 (0.00-0.68); EOSINOPHILS PERCENT AUTO 2 % (0-6); Hematocrit 19.6 % (37.0-53.0); Hemoglobin 6.4 g/dL (13.5-17.5); IMMATURE GRAN ABSOLUTE AUTO 0.06 K/mm3 (0.00-0.10); IMMATURE GRAN PERCENT AUTO 1 % (0-1); LYMPHOCYTES ABSOLUTE AUTO 1.77 K/mm3 (0.84-5.20); LYMPHOCYTES PERCENT AUTO 16 % (21-46); MONOCYTES ABSOLUTE AUTO 0.91 K/mm3 (0.16-1.47); MONOCYTES PERCENT AUTO 8 % (4-13); Mean Corpuscular HGB 29.8 pg (26.0-34.0); Mean Corpuscular HGB Conc 32.7 g/dL (31.5-36.5); Mean Corpuscular Volume 91 fL (80-100); Mean Platelet Volume 10.9 fL (9.1-12.4); NEUTROPHILS ABSOLUTE AUTO 8.24 K/mm3 (1.96-9.15); NEUTROPHILS PERCENT AUTO 73 % (41-73); Platelet Count 194 K/mm3 (150-400); RDW Coefficient Variation 17.1 % (11.7-14.2); RDW Standard Deviation 53.4 fL (35.1-46.3); Red Blood Cell Count 2.15 M/mm3 (4.30-5.90); White Blood Cell Count 11.24 K/mm3 (4.00-11.30)
[2018-08-13 05:42] LABS: PO2 Arterial 84.7 mmHg (80-100)
[2018-08-13 05:43] LABS: PCO2 Arterial 40.2 mmHg (35-45); pH Blood Arterial 7.48 (7.35-7.45)
[2018-08-13 06:07] LABS: Magnesium, Blood 2.1 mg/dL (1.6-2.4)
[2018-08-13 06:09] LABS: Anion Gap 4 mmol/L (6-16); Blood Urea Nitrogen 44 mg/dL (8-24); Bun/Creatinine Ratio 56.7 (12.0-20.0); CO2, Blood 30 mmol/L (21-32); Calcium, Blood 7.4 mg/dL (8.5-10.1); Chloride, Blood 106 mmol/L (98-108); Creatinine, Blood 0.78 mg/dL (0.60-1.20); Glomerular Filtration Rate >60 (60-); Glucose, Blood 99 mg/dL (70-99); Phosphorus, Blood 2.3 mg/dL (2.5-4.9); Potassium, Blood 3.5 mmol/L (3.5-5.5); Sodium, Blood 140 mmol/L (136-145)
--- NOTE | 2018-08-13 07:30 | NUR ---
ASSUMED CARE OF THE PT. ONE UNIT RBC INFUSING AND JOANIE WELL. PT. AWAKE AND SEEMS ORIENTED. NODS YES/NO. CALM, DENIES PAIN. VENT SETTINGS ON SPONT WITH PS15, FIO2 30%, SAO2 .95%. lUNGS CLEAR ANTERIORLY BUT QUITE DEC. IN BASES. SCANT BLOODY SECRETIONS FROM ETT. MONITOR CONT. A-FIB WITH CONTROLLED RATE. VSS. AFEBRILE. JOANIE TUBE FEEDING AT 30 ML/HR WITH MINIMAL RESID. RECTAL TUBE IN PLACE. RODRIGUEZ PATENT WITH CL. YELL U/O. [place]. PAS IN PLACE. 4X4 MUSTACHE DRSG INTACT WITH NO DRNG.NASAL ROCKETS IN PLACE [place]. EXTENSIVE PITTING EDEMA T/O INCLUDING SCROTUM.
--- NOTE | 2018-08-13 07:41 | NUR ---
SUMMARY ASSESSMENTS UNCHANGED THROUGHOUT SHIFT. PT ON SPONTANEOUS MODE SINCE THIS MORINING, UNSEDATED. HEMOGLOBIN LOW THIS MORNING, UPDATED HOSPITALIST AND NEW ORDER RECEIVED FOR ONE UNIT PRBC. REPORT GIVEN TO KARRIE DOTSON TO ASSUME CARE.
--- NOTE | 2018-08-13 10:00 | NUR ---
DR. MARES HAS BEEN INTO SEE PT. PT CON'T TO REQUEST A TRACH BE PLACED.PLAN WILL BE FOR TRACH LATER THIS WEEK. DR. MARES TO CONSULT DR. TAYLOR. DR. MARES TALKED WITH MESERET REGARDING THE PLAN. LIDOCAINE PATCH TO LEFT HIP.
--- NOTE | 2018-08-13 10:51 | NUR ---
VENT- PT. TRYING TO SLEEP AND TV DECREASING TO 200. PLACED BACK ON AC 12 400 30% PEEP OF 5.
--- NOTE | 2018-08-13 16:53 | NUR ---
Spiritual Care visit: No family present. Prayer provided at bedside. Josias was sleeping soundly and did not respond. I will remain available to pt and family.
--- NOTE | 2018-08-13 17:13 | NUR ---
PT. REMAINS ON VENT AND AC MOST OF THE DAY EXCEPT ONE OTHER 5 MIN SPONT TRIAL BUT RR INC. TO 30'S SO ABORTED TRIAL. PT. HAS REMAINED CALM, COOPERATIVE T/O DAY. RESTR HAVE REMAINED OFF. NO RESP DISTRESS BUT LUNGS ARE MORE COARSE THIS AFTERNOON. CARDIAC STATUS UNCHG'D. JOANIE TUBE FEED WITHOUT RESID. LIQ BRN STOOL CON'T TO RECTAL TUBE. NO CHG IN EDEMA NOTED TODAY. SKIN CON'T DRY PATCHES. SKIN CARE SEVERAL TIMES T/O DAY. > 600ML U/O TODAY. NS TKO CON'T. COCCYX DRSG REMAINS IN PLACE. PAS [place] INTACT. C/O RECTAL PAIN ONCE TODAY BUT DENIED NEED FOR MEDS. RELIEF WITH REPOSITIONING.
--- NOTE | 2018-08-13 20:00 | NUR ---
DR. RODGER SOARES, HOSPITALIST TO BEDSIDE FOR ASSESSMENT. DISCUSSED PLAN FOR REMOVING BILATERAL RHINO ROCKETS TOMRROW, DR. SOARES STATES HE WILL REASSESS AND POTENTIALLY PLACE ORDERS FOR REMOVAL TOMORROW. OTHERWISE, CONTINUE WITH CURRENT CARE PLAN.
[2018-08-14 04:15] LABS: BASOPHILS ABSOLUTE AUTO 0.04 K/mm3 (0.00-0.23); BASOPHILS PERCENT AUTO 0 % (0-2); EOSINOPHILS ABSOLUTE AUTO 0.35 K/mm3 (0.00-0.68); EOSINOPHILS PERCENT AUTO 3 % (0-6); Hematocrit 23.7 % (37.0-53.0); Hemoglobin 7.8 g/dL (13.5-17.5); IMMATURE GRAN ABSOLUTE AUTO 0.07 K/mm3 (0.00-0.10); IMMATURE GRAN PERCENT AUTO 1 % (0-1); LYMPHOCYTES ABSOLUTE AUTO 1.67 K/mm3 (0.84-5.20); LYMPHOCYTES PERCENT AUTO 16 % (21-46); MONOCYTES ABSOLUTE AUTO 0.81 K/mm3 (0.16-1.47); MONOCYTES PERCENT AUTO 8 % (4-13); Mean Corpuscular HGB 30.5 pg (26.0-34.0); Mean Corpuscular HGB Conc 32.9 g/dL (31.5-36.5); Mean Corpuscular Volume 93 fL (80-100); Mean Platelet Volume 10.7 fL (9.1-12.4); NEUTROPHILS ABSOLUTE AUTO 7.72 K/mm3 (1.96-9.15); NEUTROPHILS PERCENT AUTO 72 % (41-73); Platelet Count 226 K/mm3 (150-400); RDW Coefficient Variation 17.6 % (11.7-14.2); Red Blood Cell Count 2.56 M/mm3 (4.30-5.90); White Blood Cell Count 10.66 K/mm3 (4.00-11.30)
[2018-08-14 04:30] LABS: Albumin, Blood 1.7 g/dL (3.4-5.0); Anion Gap 4 mmol/L (6-16); Blood Urea Nitrogen 42 mg/dL (8-24); CO2, Blood 31 mmol/L (21-32); Calcium, Blood 7.8 mg/dL (8.5-10.1); Chloride, Blood 106 mmol/L (98-108); Creatinine, Blood 0.71 mg/dL (0.60-1.20); Glomerular Filtration Rate >60 (60-); Glucose, Blood 96 mg/dL (70-99); International Normalized Ratio 1.16; Phosphorus, Blood 2.6 mg/dL (2.5-4.9); Potassium, Blood 3.4 mmol/L (3.5-5.5); Prothrombin Time Results 12.1 Sec (9.7-11.5); Sodium, Blood 141 mmol/L (136-145)
--- NOTE | 2018-08-14 05:30 | NUR ---
SUMMARY NO ACUTE CHANGES THROUGHOUT SHIFT. VITALS STABLE. PT HAS BECOME NOTICABLY MORE INVOLVED IN CARE THROUGHOUT NIGHT. PT USING CALL LIGHT FOR NEEDS ON MULTIPLE OCCASIONS. PT ALSO ABLE TO ASSIST WITH RANGE OF MOTION ACTIVITIES AND TURNING. PT CONTINUES TO BE WEAK BUT IS SHOWING IMPROVEMENT. MINIMAL BLEEDING FROM NOSE/ORAL CAVITY. RECTAL TUBE CONTINUES TO DRAIN DARK, LIQUID STOOL. VENT SETTINGS UNCHANGED. NO SEDATION OR RESTRAINTS FOR DURATION OF SHIFT.
--- NOTE | 2018-08-14 07:07 | NUR ---
REPORT TO KARRIE HAYNES TO ASSUME CARE
--- NOTE | 2018-08-14 07:15 | NUR ---
START OF SHIFT NOTE: PATIENT IS CURRENTLY SLEEPING, ON MECHANICAL VENTILATION SETTINGS ARE 12//400/FiO2 30 %, AFEBRILE, APPEARS TO BE IN NO PAIN, CHRONIC A-FIB, PATIENT HAS TUBE FEEDING PIVOT 1.5 AT 30 CC/HR, BOWEL TONES PRESENT IN ALL FOUR QUADRANTS, RECTAL TUBE IN PLACE, DRAINING DARK BROWN LIQUID, RODRIGUEZ CATHETER IN PLACE, DRAINING WELL TO GRAVITY, PATIENT HAS BILATERAL UPPER EXTREMITY EDEMA AND LIMBS ARE ELEVATED, ALSO HAS EDEMATOUS SCROTUM, EXCORIATION NOTED ON BUTTOCKS, MULTIPLE SCABS THROUGHOUT OVER ENTIRE BODY, PATIENT IS ABLE TO SHADE HEAD AND NOD AND ANSWER SIMPLE YES/NO QUESTIONS, CALL LIGHT IN REACH, WILL CONTINUE TO MONITOR.
--- NOTE | 2018-08-14 07:49 | NUR ---
RT IN TO SEE PATIENT, WAS SUCTIONED, ALSO RECEIVED ORAL CARE SCHEDULED, PATIENT IS NOW AWAKE AND ABLE TO MAKE MOST NEEDS KNOWN, CALL LIGHT IN REACH, WILL CONTINUE TO MONITOR.
--- NOTE | 2018-08-14 08:40 | NUR ---
LIDOCAINE PATCH APPLIED TO LOWER BACK, PATIENT WAS REPOSITIONED, RECEIVED AM MEDS VIA OG, TOLERATED WELL, CALL LIGHT IN REACH, WILL CONTINUE TO MONITOR.
--- NOTE | 2018-08-14 08:44 | NUR ---
PATIENT WAS PLACED ON PRESSURE SUPPORT BY RT SAQIB, ORDERED, SETTINGS ARE 15/5 WITH FiO2 30 %, CALL LIGHT IN REACH, WILL COTNINUE TO MONITOR.
--- NOTE | 2018-08-14 09:08 | NUR ---
SAQIB RT, NOIFIED, PATIENT NOT TOLERATING PRESSURE SUPPORT, CHANGED BACK TO A/C SETTINGS, TOLERATING WELL, CALL LIGHT IN REACH, WILL CONTINUE TO MONITOR.
--- NOTE | 2018-08-14 09:23 | NUR ---
DR. MARES IN TO SEE PATIENT, WILL PLACE ON LASIX GTT TO START AT 5/HR FOR DIURESES AND ALSO CHANGE METOPROLOL 25 MG BID TO COREG, RT ALSO SPOKE WITH DR. MARES ABOUT PEAK PRESSURES AND PATIENT'S INABILITY TO TOLERATE PRESSURE SUPPORT.
--- NOTE | 2018-08-14 12:48 | NUR ---
PATIENT CONTINUES TO REST COMFORTABLY, NAPS OCCASSIONALLY, AND STILL ABLE TO MAKE NEEDS KNOWN, LASIX DRIP INFUSING AT 5 MG/HR, ALSO RECEIVING ALBUMIN AND POTASSIUM 40 MEQ IV FOR A K+ 3.4, CALL LIGHT IN REACH, WILL CONTINUE TO MONITOR.
--- NOTE | 2018-08-14 13:56 | NUR ---
DR. TAYLOR, ENT, WAS IN TO SEE PATIENT AT 12:45, EXPLAINED TRACH PROCEDURE TO PATIENT, BUT PATIENT SHOOK HIS HEAD WHEN ASKED IF HE WANTED A TRACH, DR. TAYLOR LEFT AND SAID HE WOULD SPEAK WITH DR. MARES. DR. MARES WAS NOTIFIED ABOUT THE VISIT FROM DR. TAYLOR BY THIS RN, DR. MARES AND THIS RN AT BEDSIDE, PATIENT CLEARLY NODDED HIS HEAD AND GAVE "THUMBS UP" WHEN DR. MARES ASKED HIM IF HE WANTED THE TRACH, DR. MARES CALLED DR. TAYLOR BACK AND TRANCHEOSTOMY WILL BE DONE AT BEDSIDE TOMORROW 08/15/18 AT 17:30 PM, TUBE FEED SHOULD BE STOPPED AT ABOUT 0800 AM ON 08/15/[address] MARES.
--- NOTE | 2018-08-14 17:45 | NUR ---
SHIFT SUMMARY NOTE: PATIENT CONTINUE TO BE MECHANICALLY VENTILATED, SETTINGS ARE UNCHAGED AT 12/5/400/FiO2 30 %, WEANING TRIAL WITH PRESSURE SUPPORT ENDED AFTER 20 MINUTES, PATIENT WILL RECEIVE TRACH TOMORROW AT 17:[address] TAYLOR, ENT, LASO PEG TUBE IS PLANNED BUT NO GI SERVICES AVAILABLE TODAY OR TOMORROW, LUNG SOUNDS ARE COARSE IN UPPER LOBES BUT DIMINISHED IN BASES, CHRONIC A-FIB WITH HR IN 70'S TO 80'S, BOWEL TONES PRESENT IN ALL FOUR QUADRANTS, RECTAL TUBE IN PLACE DRAINING LIQUID STOOL, RODRIGUEZ CATHETER IN PLACE, DRAINING GOOD AMOUNTS OF CLEAR YELLOW URINE, AFTER LASIX DRIP WAS STARTED, INFUSING AT 5 MG/HR, PATIENT ALSO RECEIVED ALBUMIN X4, PATIENT IS NOT ON SEDATION AND NOT IN RESTRAINTS, ABLE TO ANSWER QUESTIONS BY SHAKING HEAD OR NODDING, TUBE FEED INFUSING AT 30 CC/HR WITH WATER FLUSH, WILL BE STOPPED AT 0700 TOMORROW MORNING, CALL LIGHT IN REACH, WILL CONTINUE TO MONITOR, AND GIVE REPORT TO ONCOMING SURVEILLANCE INSPECTOR.
--- NOTE | 2018-08-14 20:08 | NUR ---
CARE ASSUMED REPORT RECEIVED, CARE ASSUMED AT 1900. PT RESTING QUIETLY, AROUSES EASILY FOR ASSESSMENT AND ADL'S. DISCUSSED PLAN OF CARE WITH PT AND PT AGREEABLE. ABLE TO GIVE STAFF DIRECTIONS USING HAND MOTIONS AND ANSWERING YES/NO QUESTIONS. DISCUSSED PLACEMENT OF TRACH TOMORROW PLANNED FOR TOMORROW AND PT NODS HEAD "YES." SEE SHIFT ASSESSMENT. SEE VITALS FLOWSHEET. LASIX GTT INFUSING, TITRATING TO MAINTAIN URINE OUTPUT OF GREATER THAN 125 ML/HR PER ORDER. PT LEFT WITH CALL LIGHT IN REACH, AGREES TO CALL FOR NEEDS.
[2018-08-15 03:50] LABS: BASOPHILS ABSOLUTE AUTO 0.03 K/mm3 (0.00-0.23); BASOPHILS PERCENT AUTO 0 % (0-2); EOSINOPHILS ABSOLUTE AUTO 0.36 K/mm3 (0.00-0.68); EOSINOPHILS PERCENT AUTO 5 % (0-6); Hematocrit 21.5 % (37.0-53.0); Hemoglobin 6.9 g/dL (13.5-17.5); IMMATURE GRAN ABSOLUTE AUTO 0.02 K/mm3 (0.00-0.10); IMMATURE GRAN PERCENT AUTO 0 % (0-1); LYMPHOCYTES ABSOLUTE AUTO 1.69 K/mm3 (0.84-5.20); LYMPHOCYTES PERCENT AUTO 22 % (21-46); MONOCYTES ABSOLUTE AUTO 0.61 K/mm3 (0.16-1.47); MONOCYTES PERCENT AUTO 8 % (4-13); Mean Corpuscular HGB 30.1 pg (26.0-34.0); Mean Corpuscular HGB Conc 32.1 g/dL (31.5-36.5); Mean Corpuscular Volume 94 fL (80-100); Mean Platelet Volume 10.1 fL (9.1-12.4); NEUTROPHILS ABSOLUTE AUTO 5.09 K/mm3 (1.96-9.15); NEUTROPHILS PERCENT AUTO 65 % (41-73); Platelet Count 216 K/mm3 (150-400); RDW Coefficient Variation 17.8 % (11.7-14.2); RDW Standard Deviation 55.4 fL (35.1-46.3); Red Blood Cell Count 2.29 M/mm3 (4.30-5.90)
[2018-08-15 04:04] LABS: International Normalized Ratio 1.16; Prothrombin Time Results 12.1 Sec (9.7-11.5)
[2018-08-15 04:07] LABS: Albumin, Blood 2.2 g/dL (3.4-5.0); Anion Gap 4 mmol/L (6-16); Blood Urea Nitrogen 42 mg/dL (8-24); Bun/Creatinine Ratio 57.6 (12.0-20.0); CO2, Blood 33 mmol/L (21-32); Calcium, Blood 7.9 mg/dL (8.5-10.1); Chloride, Blood 104 mmol/L (98-108); Creatinine, Blood 0.73 mg/dL (0.60-1.20); Glomerular Filtration Rate >60 (60-); Glucose, Blood 97 mg/dL (70-99); Phosphorus, Blood 3.4 mg/dL (2.5-4.9); Potassium, Blood 3.2 mmol/L (3.5-5.5); Sodium, Blood 141 mmol/L (136-145)
--- NOTE | 2018-08-15 06:11 | NUR ---
PHYSICIAN CONTACT SPOKE WITH DR. AMEZQUITA REGARDING AM LABS. NEW ORDER TO GIVE 0900 POTASSIUM DOSE NOW AND TO TRANSFUSE 1 UNIT PRBC.
--- NOTE | 2018-08-15 07:03 | NUR ---
REPORT TO KARRIE MARTINEZ AND KARRIE KENT TO ASSUME CARE
--- NOTE | 2018-08-15 07:12 | NUR ---
SUMMARY VITALS STABLE. ASSESSMENTS UNCHANGED. LASIX GTT INFUSING, EDEMA IMPROVING, GOOD URINE OUTPUT. RECTAL TUBE CONTINUES TO DRAIN DARK LIQUID STOOL. SEE I/O FLOWSHEET. PT CALLING APPROPRIATELY FOR NEEDS, ABLE TO EXPRESS NEEDS USING HAND MOTIONS AND YES/NO QUESTIONS. PT CONTINUES TO BE ABLE TO PARTICIPATE IN RANGE OF MOTION AND REPOSITIONING, BUT IS EXTREMELY WEAK. TUBE FEEDING STOPPED AT 0600 AT COMPLETION OF INFUSING BAG IN PREP FOR TRACH PLACEMENT.
--- NOTE | 2018-08-15 07:30 | NUR ---
ASSUMED CARE PT REMAINS ON VENT AC12/400/5/30%. CURRENT GTTP IS LASIX 5MG/HR. PT CAN NOD TO YES/NO QUESTIONS AND IS ALERT AND ORIENTED. PT REPORTS PAIN IN HIS CHEST (FROM CPR WILL APPLY LIDOCAINE PATCH).
--- NOTE | 2018-08-15 09:32 | NUR ---
DR. MARES IN ROOM EXPLAINED PLAN FOR TODAY REGARDING POTENTIAL VIBRA PLACEMENT, TRACH AT 1730 AND EVALUATION AND TREATMENT FROM PHYSICAL THERAPY TO HELP WITH EARLY MOBILIZATION.
--- NOTE | 2018-08-15 18:29 | NUR ---
08/15/18 1829 Aric Miller PATIENT IS INTUBATED. 3-LEAD EKG REVIEWED WITH PHYSICIAN PRIOR TO START OF PROCEDURE.History, Chart, Medications and Allergies reviewed before start of procedure.MONITOR INTACT WITH CONTINUOUS PULSE OXIMETRY AND INTERMITTENT BP.O2 VIA N/C INTACT THROUGHOUT SEDATION/PROCEDURE.
--- NOTE | 2018-08-15 19:08 | NUR ---
SHIFT SUMMARY PT REMAINS ON VENTILATOR, BUT NOW THROUGH A TRACHEOSTOMY; AC12/400/5/30%. PT IS ALERT AND ORIENTED AND CAN NOD TO ANSWER YES/NO QUESTIONS; HE CAN ALSO WRITE SOME WORDS DOWN ON PAPER. PT'S RHINOROCKETS WERE REMOVED PRIOR TO TRACHEOSTOMY PROCEDURE; AND AFRIN SPRAYED INTO EACH NOSTRIL - NO BLEEDING FROM NOSTRILS AT THIS TIME. PT HAS HAD NO RESIDUALS ALL SHIFT. PT WAS SWITCHED FROM ROOM 9 TO ROOM 11.
--- NOTE | 2018-08-15 19:09 | NUR ---
MEDS CLARIFIED WITH DR. MARES PT RECENTLY HAD A TRACH PLACED WITH NO FEEDING TUBE. DR. MARES ORDERED TO HOLD ALL PER TUBE MEDS AND HEPARIN TONIGHT, WELL TF ORDER AND IT WILL BE READRESSED IN THE MORNING. POTASSIUM 40MEQ WAS SUPPOSED TO BE STARTED PT TONIGHT; LAST LAB SHOWED POTASSIUM OF 3.2; DR. MARES STATED TO HOLD OFF ON LASIX GTT AND POTASSIUM TIL TOMORROW MORNING WELL AND IT WILL BE READDRESSED THEN. NO NEW ORDERS OTHER THAN REPEAT H&H POST THE ONE UNIT OF PRBC'S PT RECEIVED TODAY.
--- NOTE | 2018-08-15 19:45 | NUR ---
ASSUMED PT CARE AT 1915 PT IS RESTING IN BED WITH EYES OPEN, ABLE TO FOLLOW COMMANDS. ATTEMPTING TO MOUTH WORDS TO MAKE NEEDS KNOWN, BUT UNABLE TO READ LIPS. PT WAS GIVEN PEN AND PAPER IN ORDER TO COMMUNICATE NEEDS. PT WROTE DOWN ASKING WHAT ROOM HE WAS IN, ASKED WHAT CITY HE WAS IN, WELL HOW HE GOT HERE. PT WAS REORIENTED TO PLACE, TIME, AND SITUATION. PT DOESN'T RECALL ANYTHING THAT HAS TRANSPIRED SINCE BEING ADMITTED TO THE HOSPITAL. HE DOES REMEMBER THAT HE WAS HAVING TROUBLE WITH DIARRHE[employer] AT HOME. PT IS VERY PLEASANT AND KIND WITH CARE. REMINDERS TO NOT PULL AT SUCTION TUBING IT IS CONNECTED TO TRACH; MOVED OUT OF REACH OF PT. TRACH IS SUTURED IN PLACE WITH MINIMAL BLOODY DRAINAGE NOTED AROUND TRACH; SUCTIONED DUE TO HIGH PEAK PRESSURES AND RETRIEVED MINIMAL AMOUNTS OF THICK, YELLOW, BLOOD TINGED SPUTUM. PROVIDED ORAL SUCTIONING WELL AND PT SHOOK HEAD YES TO BEING ABLE TO BREATHE BETTER. VENT SETTINGS: AC 12, TV 400, PEEP 5, FIO2 30%. OXYGEN SATURATIONS 98%. PT REMAINS IN AFIB WITH HR 60-80'S. LASIX AND LEVOPHED CURRENTLY ON STANDBY. NS TKO. PICC LINE TO MARIAH. PT C/O 5/10 PAIN TO TRACH SITE; RECEIVED NEW ORDERS FROM DR. MARES TO CHANGE FENTANYL ORDERS TO Q1 PRN INSTEAD OF Q2. NO FAMILY AT BEDSIDE AT THIS TIME.
[2018-08-15 22:46] LABS: Hematocrit 25.8 % (37.0-53.0); Hemoglobin 8.5 g/dL (13.5-17.5)
[2018-08-16 04:20] LABS: BASOPHILS ABSOLUTE AUTO 0.03 K/mm3 (0.00-0.23); BASOPHILS PERCENT AUTO 1 % (0-2); EOSINOPHILS ABSOLUTE AUTO 0.36 K/mm3 (0.00-0.68); EOSINOPHILS PERCENT AUTO 6 % (0-6); Hematocrit 26.8 % (37.0-53.0); Hemoglobin 8.7 g/dL (13.5-17.5); IMMATURE GRAN ABSOLUTE AUTO 0.02 K/mm3 (0.00-0.10); IMMATURE GRAN PERCENT AUTO 0 % (0-1); LYMPHOCYTES ABSOLUTE AUTO 1.35 K/mm3 (0.84-5.20); LYMPHOCYTES PERCENT AUTO 21 % (21-46); MONOCYTES ABSOLUTE AUTO 0.61 K/mm3 (0.16-1.47); MONOCYTES PERCENT AUTO 9 % (4-13); Mean Corpuscular HGB Conc 32.5 g/dL (31.5-36.5); Mean Corpuscular Volume 95 fL (80-100); Mean Platelet Volume 10.1 fL (9.1-12.4); NEUTROPHILS ABSOLUTE AUTO 4.22 K/mm3 (1.96-9.15); NEUTROPHILS PERCENT AUTO 64 % (41-73); Platelet Count 248 K/mm3 (150-400); RDW Coefficient Variation 17.5 % (11.7-14.2); RDW Standard Deviation 54.3 fL (35.1-46.3); Red Blood Cell Count 2.81 M/mm3 (4.30-5.90); White Blood Cell Count 6.59 K/mm3 (4.00-11.30)
[2018-08-16 04:30] LABS: Albumin, Blood 2.2 g/dL (3.4-5.0); Anion Gap 4 mmol/L (6-16); Blood Urea Nitrogen 37 mg/dL (8-24); CO2, Blood 33 mmol/L (21-32); Calcium, Blood 7.9 mg/dL (8.5-10.1); Chloride, Blood 105 mmol/L (98-108); Creatinine, Blood 0.76 mg/dL (0.60-1.20); Glomerular Filtration Rate >60 (60-); Glucose, Blood 84 mg/dL (70-99); Phosphorus, Blood 3.9 mg/dL (2.5-4.9); Potassium, Blood 3.5 mmol/L (3.5-5.5); Sodium, Blood 142 mmol/L (136-145)
[2018-08-16 04:34] LABS: International Normalized Ratio 1.23; Prothrombin Time Results 12.8 Sec (9.7-11.5)
--- NOTE | 2018-08-16 06:12 | NUR ---
END OF SHIFT SUMMARY PT REMAINS ON THE VENTILATOR VIA TRACH; SETTINGS AC 12, TV 400, PEEP 5, FIO2 30%. PT IS ALERT AND ABLE TO FOLLOW COMMANDS, ANSWER YES/NO QUESTIONS, AND COMMUNICATE VIA PEN AND PAPER. PT IS VERY PLEASANT AND COOPERATIVE WITH CARE. REORIENTED AT BEGINNING OF SHIFT AND PT HAS REMAINED ORIENTED SINCE. QUESTIONS IN REGARDS TO WHEN HE CAN COME OFF THE VENTILATOR AND PT WAS EDUCATED IN REGARDS TO BREATHING TRIALS TO ALLOW HIM TO BREATHE ON HIS OWN BEFORE TRANSITIONING HIM OFF D/T HIS HX OF NOT PULLING ENOUGH TV AND HAVING TO BE REINTUBATED; PT DEMONSTRATED UNDERSTANDING. PT BEGAN TO BLEED MINIMAL AMOUNTS THROUGH HIS RIGHT NOSTRIL A FEW HOURS INTO THE SHIFT; SUCTIONED OUT BLOOD CLOTS AND PLACED DRY GAUZE IN NOSE; MINIMALLY EFFECTIVE. AT BEGINNING OF SHIFT PT WAS PRODUCING SCANT AMOUNTS OF SPUTUM; HOWEVER, TOWARDS THE END PT NEEDED TO BE SUCTIONED MORE FREQUENTLY WITH MODERATE AMOUNTS OF THICK, RG SPUTUM. PT REMAINS EDEMATOUS, BUT LASIX GTT REMAINED OFF T/O NIGHT. PRESSURES HAVE BEEN STABLE; THEREFORE, LEVOPHED GTT HAS REMAINED OFF WELL. NS TKO WAS SL AFTER LAB DRAW. RODRIGUEZ CATH REMAINS PATENT AND DRAINING LARGE AMOUNTS TO GRAVITY. RECTAL TUBE REMAINS PATENT AND DRAINING BROWN, LIQUID STOOL TO GRAVITY WELL. PT REPOSITIONED FOR COMFORT WITH CALL LIGHT LEFT WITHIN REACH. NO FAMILY AT BEDSIDE THIS SHIFT.
--- NOTE | 2018-08-16 07:15 | NUR ---
ASSUMED CARE PT REMAINS ON VENT AC12/400/5/30%. RECIEVED REPORT FROM DONNA. PT IS HEMODYNAMICALLY STABLE, AND REPORTS NO PAIN AT THIS TIME. PLAN FOR TODAY INVOLVES PEG TUBE PLACEMENT, TRACH CARE, AND PAIN MANAGEMENT.
--- NOTE | 2018-08-16 10:30 | NUR ---
OG TUBE PLACED FOR MEDS/TUBE FEEDING. 1050: CXR DONE TO CONFIRM PLACEMENT. 1105-BOBBIN FIXER CALLED TO SAY THE TIP IS VISUALIZED IN THE PROXIMAL STOMACH AND UNABLE TO SEE COMPLETE TIP OF DOBHOFF. WILL ADVANCE LINE AND RE-XRAY.
--- NOTE | 2018-08-16 12:15 | NUR ---
DR MALIN AND DAY SURGERY TEAM HERE TO START PEG TUBE PLACEMENT.
--- NOTE | 2018-08-16 12:37 | NUR ---
INTO ICU 11 FOR PEG TUBE PLACEMENT
--- NOTE | 2018-08-16 12:54 | NUR ---
CALLED AND SPOKE WITH JEWEL FROM CARE MANAGEMENT TO INFORM HER TO SET UP DISCHARGE PLANS WITH [facility]. JEWEL INFORMED THIS RN THAT SHE ALREADY SENT AND ADMISSION PACKET UP TO DATE WITH PT'S STATUS, EXCLUDING DOCUMENTATION ON THE PEG PLACEMENT. INFORMED HER IT WAS BEING PLACED NOW.
--- NOTE | 2018-08-16 13:14 | NUR ---
PEG PLACEMENT COMPLETE. PT IS AWAKE, AND ALERT AND ORIENTED X3. PT REPORTS PAIN 6/10 AT TRACHEOSTOMY SITE. WILL MEDICATE PER ORDERS.
--- NOTE | 2018-08-16 18:19 | NUR ---
SHIFT SUMMARY PT REMAINS ON TRACH AND VENT AC12/400/5/30%. PT REMAINS ALERT AND ORIENTED AND RESPONDS BY NODDING, AND PEN AND PAPER. PT UNDERWENT PEG TUBE PLACEMENT AND FINISHED AT 1314. PEG TUBE SITE IS C/D/I, TRACH SITE WAS CLEANED UNDER STERILE CONDITIONS, AND IS C/D/I. PT HAS BEEN REPORTING MORE PAIN TODAY, AND BEEN CONTROLLED WELL WITH FENTANYL. PT IS RESTING AT THIS TIME.
--- NOTE | 2018-08-16 20:00 | NUR ---
ASSUMED PT CARE AT 1915 PT ALERT AND IN BED. TRACH SITE LOOKS GODO WITH NO OOZING. VENT SETTINGS REMAIN THE SAME. PEG TUBE SITE HAS DRESSING INTACT WITH NO DRAINAGE OR OOZING NOTED. PT DENIES ANY PAIN OTHER THAN HIS RIGHT SHOULDER BEING SORE; REPOSITIONED FOR COMFORT. STARTED JEVITY 1.5 VIA PEG TUBE AT 25MLS/HR; GOAL OF 60MLS/HR. PT TOLERATED MEDS AND WATER FLUSHES OKAY. NO RESIDUALS. RODRIGUEZ IS PATENT AND DRAINING TO GRAVITY. RECTAL TUBE REMAINS IN PLACE WITH BROWN, LIQUID STOOL NOTED. PT REMAINS EDEMATOUS, BUT HAS SIGNIFICANTLY IMPROVED SINCE ADMIT TO ICU. HELD COREG DOSE D/T LOWER END OF SBP'S. PT HAS CALL LIGHT IN REACH AND IS ABLE TO MANAGE BED CONTROLS AND TV CONTROLS. REFUSED BED BATH FOR TONIGHT AND WAS ALREADY DROWSING OFF TO SLEEP PRIOR TO LEAVING ROOM. PT IS ABLE TO MAKE HIS NEEDS KNOWN VIA PEN AND PAPER IF UNABLE TO MAKE OUT VIA YES/NO QUESTIONS OR PEN/PAPER.
[2018-08-17 03:40] LABS: BASOPHILS ABSOLUTE AUTO 0.02 K/mm3 (0.00-0.23); BASOPHILS PERCENT AUTO 0 % (0-2); EOSINOPHILS ABSOLUTE AUTO 0.34 K/mm3 (0.00-0.68); EOSINOPHILS PERCENT AUTO 6 % (0-6); Hematocrit 27.1 % (37.0-53.0); Hemoglobin 8.7 g/dL (13.5-17.5); IMMATURE GRAN ABSOLUTE AUTO 0.02 K/mm3 (0.00-0.10); IMMATURE GRAN PERCENT AUTO 0 % (0-1); LYMPHOCYTES ABSOLUTE AUTO 1.56 K/mm3 (0.84-5.20); LYMPHOCYTES PERCENT AUTO 28 % (21-46); MONOCYTES ABSOLUTE AUTO 0.55 K/mm3 (0.16-1.47); MONOCYTES PERCENT AUTO 10 % (4-13); Mean Corpuscular HGB 31.1 pg (26.0-34.0); Mean Corpuscular HGB Conc 32.1 g/dL (31.5-36.5); Mean Corpuscular Volume 97 fL (80-100); Mean Platelet Volume 10.3 fL (9.1-12.4); NEUTROPHILS ABSOLUTE AUTO 3.03 K/mm3 (1.96-9.15); NEUTROPHILS PERCENT AUTO 55 % (41-73); Platelet Count 232 K/mm3 (150-400); RDW Coefficient Variation 17.9 % (11.7-14.2); RDW Standard Deviation 61.1 fL (35.1-46.3); White Blood Cell Count 5.52 K/mm3 (4.00-11.30)
[2018-08-17 04:00] LABS: Anion Gap 3 mmol/L (6-16); Blood Urea Nitrogen 32 mg/dL (8-24); CO2, Blood 33 mmol/L (21-32); Chloride, Blood 107 mmol/L (98-108); Creatinine, Blood 0.78 mg/dL (0.60-1.20); Glomerular Filtration Rate >60 (60-); Glucose, Blood 91 mg/dL (70-99); Phosphorus, Blood 3.4 mg/dL (2.5-4.9); Potassium, Blood 3.8 mmol/L (3.5-5.5); Sodium, Blood 143 mmol/L (136-145)
--- NOTE | 2018-08-17 10:24 | NUR ---
INITIAL ASSESSMENT PATIENT IS RESTING IN BED. PATIENT IS ALERT AND ORIENTED, FOLLOWS COMMANDS, AND NODS OR SHAKES HEAD TO QUESTIONS. PATIENT IS AFEBRILE. PATIENT IS SATTING 90% OR GREATER ON CURRENT VENT SETTINGS: A/C 12, TV 400, PEEP 5, FIO2 30%. LUNG SOUNDS ARE COARSE T/O. LUNG SOUNDS HAVE HIGH PITCHED "SQUEAK" SOUND. WOULD NOT CHARACTERIZE WHEEZES. ATRIAL FIBRILLATION WITH HR 60S-70S. BP IS STABLE. PEG TUBE IS IN PLACE WITH JEVITY 1.5 INFUSING AT 40 ML/HR, ZERO RESIDUALS REINSTILLED. RECTAL TUBE IN PLACE DRAINING BROWN LIQUID STOOL. RODRIGUEZ IN PLACE DRAINING CLEAR ROBERTO URINE. PATIENT HAS EXCORIATED WOUND ON COCCYX AT THIS TIME. PATIENT IS BEING REPOSITIONED Q2 HOURS TO ASSIST WITH THIS AND CALAZIME CREAM WAS APPLIED. NO OTHER ACUTE CHANGES TO NOTE AT THIS TIME. BED LOW, CALL LIGHT IN REACH. WILL CONTINUE TO MONITOR.
--- NOTE | 2018-08-17 12:19 | NUR ---
DR. ZUNIGA IN ROOM TO SEE PATIENT.
--- NOTE | 2018-08-17 12:41 | NUR ---
PATIENT WAS MOVED TO CHAIR FROM BED UTILIZING THE CEILING LIFT. PATIENT TOLERATED THIS WELL. PATIENT MEDICATED WITH PRN FENTANYL FOR COMPLAINT OF PAIN IN NEW TRACH AND PEG TUBE AREA. PATIENT NODDED HEAD WHEN ASKED IF THIS HELPED WITH PAIN. PATIENT AFEBRILE. VSS. JEVITY 1.5 INCREASED TO 50 ML/HR INFUSING. RESIDUAL OF 90 REINSTILLED. NO OTHER ACUTE CHANGES TO NOTE ON AT THIS TIME. BED LOW, CALL LIGHT IN REACH. WILL CONTINUE TO MONITOR.
--- NOTE | 2018-08-17 14:26 | NUR ---
PT WORKED WITH PATIENT.
--- NOTE | 2018-08-17 15:42 | NUR ---
PATIENT WAS PLACED BACK ON PREVIOUS VENT SETTINGS OF AC 12, TV 500, PEEP 5, FIO2 30% AND IS SATTING 90% OR GREATER ON THIS. PATIENT IS AFEBRILE. VSDulce. RN FROM [facility] IS AT BEDSIDE SPEAKING TO PATIENT. PATIENT WAS GIVEN PRN FENTANYL PATCH FOR PAIN. NO OTHER ACUTE CHANGES TO NOTE ON AT THIS TIME. BED LOW, CALL LIGHT IN REACH. WILL CONTINUE TO MONITOR.
--- NOTE | 2018-08-17 18:15 | NUR ---
SHIFT SUMMARY PALLIATIVE CARE AT THE BEDSIDE. PATIENT CONTINUES TO BE ALERT AND ORIENTED, NODDING AND SHAKING HEAD TO QUESTIONS, AND USING THE PEN/PAPER TO COMMUNICATE WHEN NEEDED. PATIENT WAS GIVEN PRN FENTANYL PATCH. PATIENT IS AFEBRILE. PATIENT IS SATTING 90% OR GREATER ON CURRENT VENT SETTINGS: A/C 12, TV 500, PEEP 5, FIO2 30%. PATIENT PLACED ON PRESSURE SUPPORT FOR ABOUT AN HOUR TODAY, BUT WAS PLACED BACK ON PRIOR VENTILATOR SETTINGS DUE TO INCREASED RESPIRATORY RATE OVER 30. ATRIAL FIBRILLATION WITH HR IN THE 60S-70S. BP CUFF CHANGED OUT DUE TO DECREASE IN EDEMA IN UPPER EXTREMITIES, WRIST CUFF IN PLACE, SBP IS NOW IN THE 120S. PEG TUBE IN PLACE, JEVITY 1.2 INFUSING AT 50 ML/HR WITH RESIDUALS OF 0, 90, AND 10 THIS SHIFT. RECTAL TUBE IN PLACE BUT HAS HAD NO STOOL OUT THIS SHIFT. RODRIGUEZ IN PLACE DRAINING ROBERTO CLEAR URINE TO GRAVITY. PATIENT HAS EXACORIATED WOUND ON HIS COCCYX. CALAZIME CREAM APPLIED AND PATIENT IS BEING REPOSITIONED Q2 HOURS TO HELP WITH THIS. NO OTHER ACUTE CHANGES TO NOTE AT THIS TIME. BED LOW, CALL LIGHT IN REACH.
--- NOTE | 2018-08-17 19:05 | NUR ---
Clinical Therapeutic Visit: Josias states that he is hungry. Explained PEG pump nutrition. He still has the sensation of being hungry. He is in good spirits and smiles. Therapeutic foot massage given. This promotes an overall feeling of wellness and wholeness. Gental lymphatic drainage massage to bilateral upper extremities. He states this feels good. I ask if he would like to read something. He motions and mouths "I dont have my glasses." I went to his belongings bag in the closet and got his glasses out. I washed them in warm water and dried them with a soft wash cloth. He is excited to finally see! He thanks me for my time. Will attempt to get a book for him tomorrow. He states that he enjoys the Western/Cowboy genre. Pt is headed to [place] on Monday, per nursing. Will attempt more therapeutic visits.
--- NOTE | 2018-08-17 19:25 | NUR ---
ASSUMED PT CARE PT SLEEPING IN BED. TRACH SITE IN GOOD CONDITION WITH MINIMAL DRIED BLOOD NOTED. VENT SETTINGS REMAIN THE SAME. PEG DRESSING REMAINS CDI WITH NO DRAINAGE NOTED. JEVITY 1.2 INFUSING AT 40MLS/HR; CALLED MATERIALS DIRECTOR FOR JEVITY 1.5 PER ORDERS. GOAL IS 60MLS/HR; WILL ADVANCE AT 2000 IF RESIDUALS ARE LESS THAN 250. RODRIGUEZ CATH IS PATENT AND DRAINING TO GRAVITY. RECTAL TUBE REMAINS PATENT AND IN PLACE; NEW BAG ATTACHED TO MONITOR OUTPUT IT APPEARS PT HASN'T PUT OUT MUCH LIQUID STOOL DURING THE LAST TWO SHIFTS. CALL LIGHT IS WITHIN REACH. PT ABLE TO MAKE HIS NEEDS KNOWN. NO SIGNIFICANT CHANGES TO REPORT AT THIS TIME.
[2018-08-18 03:21] LABS: BASOPHILS ABSOLUTE AUTO 0.03 K/mm3 (0.00-0.23); BASOPHILS PERCENT AUTO 1 % (0-2); EOSINOPHILS ABSOLUTE AUTO 0.66 K/mm3 (0.00-0.68); EOSINOPHILS PERCENT AUTO 14 % (0-6); Hematocrit 26.6 % (37.0-53.0); Hemoglobin 8.4 g/dL (13.5-17.5); IMMATURE GRAN ABSOLUTE AUTO 0.01 K/mm3 (0.00-0.10); IMMATURE GRAN PERCENT AUTO 0 % (0-1); LYMPHOCYTES ABSOLUTE AUTO 1.21 K/mm3 (0.84-5.20); LYMPHOCYTES PERCENT AUTO 26 % (21-46); MONOCYTES ABSOLUTE AUTO 0.47 K/mm3 (0.16-1.47); MONOCYTES PERCENT AUTO 10 % (4-13); Mean Corpuscular HGB 31.3 pg (26.0-34.0); Mean Corpuscular HGB Conc 31.6 g/dL (31.5-36.5); Mean Corpuscular Volume 99 fL (80-100); Mean Platelet Volume 9.8 fL (9.1-12.4); NEUTROPHILS PERCENT AUTO 48 % (41-73); Platelet Count 201 K/mm3 (150-400); RDW Coefficient Variation 17.9 % (11.7-14.2); RDW Standard Deviation 61.9 fL (35.1-46.3); Red Blood Cell Count 2.68 M/mm3 (4.30-5.90); White Blood Cell Count 4.58 K/mm3 (4.00-11.30)
--- NOTE | 2018-08-18 05:09 | NUR ---
END OF SHIFT SUMMARY NO SIGNIFICANT CHANGES NOTED THIS SHIFT. PT DID APPEAR MORE BOTHERED/DOWN THIS SHIFT. PT WAS FRUSTRATED WITH FREQUENTLY BEING WOKE UP AND ASKED NOT TO WAKE HIM UP TO REPOSITION UNLESS HE CALLED. PT NEVER HAD A CHANCE TO CALLED DUE TO VENT ALARMING THAT PT HAD HIGH PEAK PRESSURES AND NEEDED SUCTIONED. ONCE IN ROOM AND PT WAS NOTED TO BE AWAKE HE WAS ASKED ABOUT REPOSITIONING; HE AGREED AT 0400 TO TURN TO HIS RIGHT SIDE, BUT THE OTHER TWO TIMES HE DECLINED. I MENTIONED TO PT HIS MOOD AND FACIAL EXPRESSIONS AND I COULD TELL HE WAS BOTHERED BY SOMETHING. PT EXPRESSED THAT HE IS CONCERNED REGARDING LIFE AT HOME. I ASKED PT IF HE WOULD LIKE US TO CONTACT THE FAMILY IN THE MORNING IN ORDER FOR THEM TO HELP HIM SORT OUT THINGS THAT NEED TAKEN CARE OF AND HE SHOOK HIS HEAD YES. LEFT NOTE FOR DAY SHIFT TO ADDRESS WITH FAMILY. VENT SETTINGS REMAIN THE SAME. JEVITY 1.5 INFUSING AT GOAL OF 60MLS/HR WITH 250CC WATER FLUSHES Q4HRS; NO RESIDUALS NOTED THIS SHIFT. RODRIGUEZ CATH IS PATENT AND DRAINING ROBERTO COLORED URINE WITH A TOTAL OF 350CC OUT FOR THE SHIFT. RECTAL TUBE IS PATENT AND DRAINING BROWN LIQUID STOOL. PT IS ABLE TO MAKE HIS NEEDS KNOWN AND WHEN HE IS UNABLE HE IS ABLE TO COMMUNICATE VIA PEN/PAPER. CALL LIGHT LEFT IN REACH AND PT ABLE TO DEMONSTRATE HOW TO CALL IF HE NEEDS SOMETHING. WILL CONTINUE TO MONITOR UNTIL REPORT IS HANDED OFF.
--- NOTE | 2018-08-18 06:15 | NUR ---
ASSUMED CARE OF PATIENT.
--- NOTE | 2018-08-18 07:30 | NUR ---
PATIENT ALERT AND COOPERATIVE; UNABLE TO SPEAK BUT CAN MOUTH WORDS OR WRITE WITH PEN/PAPER TO ANSWER QUESTIONS OR ASK QUESTIONS. TRACH SITE CLEAR WITH OUT NOTED DRAINAGE. ORAL CARE DONE; MOUTH DRY BUT PATIENT ABLE TO ASSIST. RN WITHORAL CARE/USES SWABS AND SUCTION. VENT. SETTINGS: A/C 12, TV 400, PEEP 5 AND FIO2 30%; BIOX. READINGS GOOD. LUNGS DIMINSHED IN BASES; COARSE ANTERIORLY BUT CLEAR WITH COUGHING/SUCTIONING. TUBE FEEDINGS INFUSING VIA PEG TUBE, SITE CLEAR. JEVITY 1.5 INFUSING AT 60ML/HR; < 5ML RESIDUAL. RECTAL TUBE IN PLACE AND DRAINING SMALL AMOUNT OF LIQUID STOOL. RODRIGUEZ TO GRAVITY AND DRAINING SMALL AMOUNTS OF CLEAR/YELLOW URINE. MONITOR REMAINS ATRIAL FIB. EDEMA TO EXTREM. HAS REDUCED. EXCORIATION TO VARIOUS AREAS ON EXTREM. BUT HEALING.
--- NOTE | 2018-08-18 11:10 | NUR ---
DR. ZUNIGA HERE; SEE ORDERS.
--- NOTE | 2018-08-18 11:30 | NUR ---
FEMTANYL 50MCG/ IVT FOR GENERALIZED DISCOMFORT.
--- NOTE | 2018-08-18 14:10 | NUR ---
SPUTUM SPECIMEN COLLECTED BY RN; LUKY-TUBE USED TO COLLECT SPECIMEN FROM TRACH TUBE. SPECIMEN SENT TO LAB.
[2018-08-18 15:01] LABS: International Normalized Ratio 1.17; Prothrombin Time Results 12.2 Sec (9.7-11.5)
--- NOTE | 2018-08-18 18:00 | NUR ---
SUMMARY: NO ACUTE CHANGES; CONT. WITH TF OF JEVITY 1.5 AT 60ML/HR.; NO RESIDUALS NOTED. FENTANYL 25-50MCG/IVT PRN TRACH/THROAT DISCOMFORT. VENT. SETTINGS UNCHANGED. 450 U/O AND 250 STOOL. PATIENT ASSISTS WITH ADL'S ETC. CEILING LIFT REQUIRED TO TRANSFER FROM BED TO RECLINER. PHYSICAL THERAPY, R.T. AND RN TRANSFERRED PATIENT AFTER BATH COMPLETED. P.T. DID STRENGTHENING EXCERCISES WITH PATIENT; PATIENT GOOD AT PARTICIPATING AND FOLLOWING DIRECTION. WILL REPORT TO ONCOMING RN.
--- NOTE | 2018-08-18 19:25 | NUR ---
ASSUMED CARE OF PT, REPORT RECEIVED. PT IS RESTING QUIETLY IN RECLINER CHAIR AT BEDSIDE AND WATCHING TV. VENT TO TRACH, SETTINGS NOTED AT AC 12, TV 400, FIO2 30% AND PEEP 5, SATS ARE 99-100% AT THIS TIME, NO INCREASED WORK OF BREATHING IS NOTED, RESP RATE HIGH TEENS AT THIS TIME. HR IRREG, AFIB ON MONITOR, BP MAINTAINING, SKIN IS PWD. CONTINUOUS TUBE FEEDS, JEVITY 1.5 @ 60 ML/HR, NO RESIDUAL, ACTIVE BOWEL TONES, MILD ABD DISTENTION NOTED, NO GRIMACING WITH PALPATION. RODRIGUEZ CATH REMAINS IN PLACE, DRAINING CLEAR YELLOW/ROBERTO URINE TO GRAVITY. RECTAL TUBE REMAINS IN PLACE, DARK BROWN GREEN LIQUID STOOL IN TUBING. PICC TO LEFT UPPER ARM, SITE WNL, DRESSING CDI. PT PT ADMITS TO PAIN AT TRACH SITE, DENIES N/V, DENIES CP/PRESSURE, COMMUNICATES WELL BY MOUTHING WORDS AND/OR USING PEN AND PAPER.
[2018-08-19 05:56] LABS: Base Excess Venous 6.2 mmol/L; Bicarbonate Venous 29.1 mmol/L (24.0-30.0); PO2 Venous 53.1 mmHg (38-42); pH Blood Venous 7.36 (7.34-7.37)
[2018-08-19 06:14] LABS: BASOPHILS ABSOLUTE AUTO 0.02 K/mm3 (0.00-0.23); BASOPHILS PERCENT AUTO 0 % (0-2); EOSINOPHILS ABSOLUTE AUTO 0.68 K/mm3 (0.00-0.68); EOSINOPHILS PERCENT AUTO 14 % (0-6); Hematocrit 28.4 % (37.0-53.0); Hemoglobin 8.8 g/dL (13.5-17.5); IMMATURE GRAN ABSOLUTE AUTO 0.01 K/mm3 (0.00-0.10); IMMATURE GRAN PERCENT AUTO 0 % (0-1); LYMPHOCYTES ABSOLUTE AUTO 1.35 K/mm3 (0.84-5.20); LYMPHOCYTES PERCENT AUTO 28 % (21-46); MONOCYTES ABSOLUTE AUTO 0.56 K/mm3 (0.16-1.47); MONOCYTES PERCENT AUTO 12 % (4-13); Mean Corpuscular HGB 31.3 pg (26.0-34.0); Mean Corpuscular Volume 101 fL (80-100); Mean Platelet Volume 10.6 fL (9.1-12.4); NEUTROPHILS ABSOLUTE AUTO 2.21 K/mm3 (1.96-9.15); NEUTROPHILS PERCENT AUTO 46 % (41-73); Platelet Count 223 K/mm3 (150-400); RDW Coefficient Variation 17.7 % (11.7-14.2); RDW Standard Deviation 64.5 fL (35.1-46.3); Red Blood Cell Count 2.81 M/mm3 (4.30-5.90); White Blood Cell Count 4.83 K/mm3 (4.00-11.30)
[2018-08-19 06:24] LABS: Anion Gap 1 mmol/L (6-16); Blood Urea Nitrogen 25 mg/dL (8-24); Bun/Creatinine Ratio 38.1 (12.0-20.0); CO2, Blood 32 mmol/L (21-32); Calcium, Blood 7.8 mg/dL (8.5-10.1); Chloride, Blood 107 mmol/L (98-108); Creatinine, Blood 0.66 mg/dL (0.60-1.20); Glomerular Filtration Rate >60 (60-); Glucose, Blood 123 mg/dL (70-99); Magnesium, Blood 1.8 mg/dL (1.6-2.4); Phosphorus, Blood 2.8 mg/dL (2.5-4.9); Potassium, Blood 4.7 mmol/L (3.5-5.5); Sodium, Blood 140 mmol/L (136-145)
[2018-08-19 06:27] LABS: International Normalized Ratio 1.09; Prothrombin Time Results 11.5 Sec (9.7-11.5)
--- NOTE | 2018-08-19 06:31 | NUR ---
PT RESTS WELL THROUGHOUT SHIFT, PER PREVIOUS NOC SHIFT PT REQUEST OF UNINTERUPTED SLEEP FROM [id number], HE WAS ALLOWED TO REST UNDISTURBED FROM MIDNOC UNTIL 0500 THIS AM. PT REPORTED THAT HE WAS ABLE TO SLEEP DURING THAT TIME. PAIN HAS BEEN WELL CONTROLLED PER PT WITH FENTANYL 50 MCG ADMINISTERED A TOTAL OF 3 DOSES THIS SHIFT. PT CONTINUES WITH VENT SETTINGS OF AC 12, TV 400, FIO2 30% AND PEEP 5, LUNGS CLEAR MOST OF THIS SHIFT OCCASIONAL SCATTERED EXPIRATORY WHEEZES, MAINTAINING SATS. AFIB CONTINUES, RATE REMAINS CONTROLLED, BP MAINTAINING, EDEMA CONTINUES WITHOUT CHANGES. SMALL AMOUNT OF STOOL OUTPUT THIS SHIFT HOWEVER LEAKED AROUND TUBING SO MEASUREMENT NOT OBTAINED.
--- NOTE | 2018-08-19 09:53 | NUR ---
CARE ASSUMED CARE AND REPORT ASSUMED SARAH RITCHIE RN. PT AWAKE AND ALERT ON VENTILATOR. DENIES PAIN AT THIS TIME. VENT AC 12, 400, 5, FIO2 30 %. LUNG SOUNDS CLEAR AT THIS TIME. TRACH SECURE WITH NO SURROUNDING OOZING OR DRAINAGE FROM TRACH SITE. VSS. AFEBRILE. AFIB, HR 70-80S. PT A/O X3, ABLE TO ANSWER QUESTIONS APPROPRIATELY BY MOUTHING WORDS OR WRITING. TOLERATING TF THROUGH PEG AT GOAL WITH NO RESIDUAL. CALL LIGHT WITHIN REACH. PT WATCHING TV. WILL CONTINUE TO MONITOR.
--- NOTE | 2018-08-19 12:32 | NUR ---
REASSESSMENT PT REMAINS ON VENT WITH TRACH SECURED. DENIES PAIN AT THIS TIME. PT TURNED AND HOB ELEVATED. A/O X 3, CALM, COOPERATIVE, AND APPROPRIATE. VSS. WILL CONTINUE TO MONITOR.
--- NOTE | 2018-08-19 17:28 | NUR ---
SHIFT SUMMARY PT REMAINED ON VENT AC MODE ENTIRE SHIFT WITH LUNG SOUNDS CLEAR AND TRACH SECURE. DENIED PAIN DURING SHIFT; CONTINUES TO WEAR FENTANYL PATCH. RECIEVED BEDBATH AND SKIN CARE. TOLERATING TF THROUGH PEG TUBE AT GOAL RATE WITH MINIMAL TO NO RESIDUALS. VSS ENTIRE SHIFT. MAP GREATER THAN 60 AND HR 70-80S IN AFIB. PICC LINE DRESSING CHANGED THIS AFTERNOON. PT HAD 400 ML URINE OUTPUT; 500 ML NS BOLUS TO BE GIVEN PER MD. PT CALM AND COOPERATIVE THROUGHOUT SHIFT. WILL GIVE BEDSIDE, HANDOFF REPORT TO NOC RN.
--- NOTE | 2018-08-19 19:05 | NUR ---
ASSUMED CARE OF PT, HE IS RESTING QUIETLY RECLINING IN BED AND DENIES NEEDS AT THIS TIME. DENIES N/V, DENIES CP/PRESSURE. PT CONTINUES WITH VENTILATOR TO TRACH, SETTINGS AC 12, TV 400, FIO2 30% AND PEEP OF 5.0, CURRENT RESP RATE MID TO UPPER TEENS, SATS UPPER 90S, LUNGS CLEAR BILAT WITH DIM BASES, RARE COUGH PRODUCTIVE OF THICK RG SPUTUM VIA TRACH SUCTIONING. PT NODS HEAD YES WHEN ASKED IF TRACH IS LESS SORE AT THIS TIME INCREASED MOVEMENT OF NECK IS NOTED. RATES PAIN WELL CONTROLLED AT THIS TIME. HR IRREG, AFIB CONTINUES ON MONITOR, RATE CONTROLLED, BP IS READING HYPOTENSIVE WITH MAP NEAR 60 HOWEVER PT'S BP CUFF IS IN PLACE TO RIGHT WRIST WHICH HE KEEPS ELEVATED, MAP GREATER THAN 65 WHEN WRIST IS POSITIONED PROPERLY, WILL MONITOR. EDEMA CONTINUES TO BILAT LOWER EXTREMITIES, DEPENDENT EDEMA TO HIPS, UPPER THIGHS, AND SCROTUM. ABD WITH ACTIVE BOWEL TONES, JEVITY 1.5 VIA PEG TUBE, RESIDUAL 10 ML AT THIS TIME, PEG TUBE SITE DRESSING CDI, ABD SOFT NO GRIMACING OR GAURDING WITH PALPATION. RODRIGUEZ CATH REMAINS IN PLACE DRAINING CLEAR ROBERTO URINE TO GRAVITY. RECTAL TUBE REMAINS IN PLACE, OUTPUT CONTINUES TO DECREASE, GREEN BROWN STOOL IN TUBING.
--- NOTE | 2018-08-20 06:28 | NUR ---
PT CONT RESTING QUIETLY THIS AM, VENT SETTINGS UNCHANGED, PAIN TO TRACH SITE INCREASED WITH REPOSITIONING THIS AM, IMPROVED TO WELL CONTROLLED WITH FENTANYL 50 MCG IV X 1. URINE OUTPUT CONTINUES LOW, 400 ML TOTAL THIS SHIFT. RECTAL TUBE WITH MINIMAL OUTPUT COLLECTED IN BAG HOWEVER LARGE AMOUNT OF SOFT/LIQUID STOOL IS PRESENT ON BEDDING WITH FINAL TURN THIS SHIFT, SMALL SOFT PARTICLES ARE PRESENT. OTHERWISE NO ACUTE CHANGES THIS SHIFT.
[2018-08-20 06:44] LABS: International Normalized Ratio 1.36
--- NOTE | 2018-08-20 07:45 | NUR ---
ASSUMED CARE: PT RESTING QUIETLY IN BED. VENT TO TRACH WITH SETTINGS AC12/400/5/30%. ALERT AND ORIENTED. MAKES NEEDS KNOWN BY MOUTHING CONCERNS OR BY WRITING ON CLIPBOARD. NO FURTHER NEEDS OR CONCERNS AT THIS TIME.
[2018-08-20] MEDS ORDERED: ALBU2.5V5 INH (11:52)
[2018-08-20] MEDS ORDERED: CARV6.25 PT (11:56)
[2018-08-20] MEDS ORDERED: Fentanyl1 EACH TOP (11:56)
[2018-08-20] MEDS ORDERED: Culturelle1 CAP PO (11:57)
[2018-08-20] MEDS ORDERED: Kaon-Cl40 MEQ/15 PT (11:57)
--- NOTE | 2018-08-20 12:48 | NUR ---
DISCUSSED WITH RT PT'S TRACH CARE AND INNER CANNULA SHREYAS. RT STATES SHE WILL LOOK INTO RECORD TO DETERMINE NEEDS
--- NOTE | 2018-08-20 16:59 | NUR ---
PT TRANSFERRED TO [facility] FOR FURTHER TREATMENT. DR ZUNIGA AND DR QUIÑONES HAVE SPOKEN WITH [facility] PHYSICIANS. EMS ARRIVED TO TAKE PT VIA AMBULANCE WITH RT ASSISTING AND ACCOMPANYING PT. REPORT CALLED AND GIVEN TO [facility] NURSE EARLE. PT'S DAUGHTER HAS BEEN MADE AWARE OF PT TRANSFERRING.
[2018-08-23 21:06] LABS: ACHR MODULATING AB <12 % (0-20); ANTI-STRIATION ABS Negative (Neg:<1:40)
== END 2018-08-20 16:30 | DRG 4 ==
LOC: ER 08:00 → PCU 10:47 → ICUW 10:47 → PCU 11:50 → MEDS 08-01 22:21 → ICUW 08-03 01:05
PROVIDERS: Emergency Medicine; Internal Medicine; Internal Medicine Critical Care Medicine; Internal Medicine Pulmonary Disease; Otolaryngology; Pharmacist; ADMIT Internal Medicine
PROC: 5A1955Z Respiratory Ventilation, Greater than 96 Consecutive Hours (ICD-10-PCS; 2018-08-03)
PROC: 0BH17EZ Insertion of Endotracheal Airway into Trachea, Via Natural or Artificial Opening (ICD-10-PCS; 2018-08-03)
PROC: 3E043XZ Introduction of Vasopressor into Central Vein, Percutaneous Approach (ICD-10-PCS; 2018-08-03)
PROC: 2Y41X5Z Packing of Nasal Region using Packing Material (ICD-10-PCS; 2018-08-11)
PROC: 30233N1 Transfusion of Nonautologous Red Blood Cells into Peripheral Vein, Percutaneous Approach (ICD-10-PCS; 2018-08-11)
PROC: 0B113F4 Bypass Trachea to Cutaneous with Tracheostomy Device, Percutaneous Approach (ICD-10-PCS; principal; 2018-08-15 17:30)
PROC: 0DH63UZ Insertion of Feeding Device into Stomach, Percutaneous Approach (ICD-10-PCS; 2018-08-16)
PROC: 0DJ08ZZ Inspection of Upper Intestinal Tract, Via Natural or Artificial Opening Endoscopic (ICD-10-PCS; 2018-08-16)
PROC: 0DJ08ZZ Inspection of Upper Intestinal Tract, Via Natural or Artificial Opening Endoscopic (ICD-10-PCS; 2018-08-16)
DX: I48.2 Chronic atrial fibrillation (principal); J96.01 Acute respiratory failure with hypoxia; A41.9 Sepsis, unspecified organism; A04.71 Enterocolitis due to Clostridium difficile, recurrent; J90 Pleural effusion, not elsewhere classified; N17.9 Acute kidney failure, unspecified; D68.32 Hemorrhagic disorder due to extrinsic circulating anticoagulants; E44.0 Moderate protein-calorie malnutrition; T17.900A Unspecified foreign body in respiratory tract, part unspecified causing asphyxiation, initial encounter; I46.9 Cardiac arrest, cause unspecified; X58.XXXA Exposure to other specified factors, initial encounter; E78.5 Hyperlipidemia, unspecified; I25.10 Atherosclerotic heart disease of native coronary artery without angina pectoris; K21.9 Gastro-esophageal reflux disease without esophagitis; M10.9 Gout, unspecified; Z87.891 Personal history of nicotine dependence; Z79.01 Long term (current) use of anticoagulants; Z79.82 Long term (current) use of aspirin; Z51.5 Encounter for palliative care; I95.9 Hypotension, unspecified; J44.9 Chronic obstructive pulmonary disease, unspecified; D64.9 Anemia, unspecified; I37.1 Nonrheumatic pulmonary valve insufficiency; T45.515A Adverse effect of anticoagulants, initial encounter; R91.8 Other nonspecific abnormal finding of lung field; I12.9 Hypertensive chronic kidney disease with stage 1 through stage 4 chronic kidney disease, or unspecified chronic kidney disease; N18.3 Chronic kidney disease, stage 3 (moderate); Z95.5 Presence of coronary angioplasty implant and graft; Z68.23 Body mass index [BMI] 23.0-23.9, adult; F03.90 Unspecified dementia, unspecified severity, without behavioral disturbance, psychotic disturbance, mood disturbance, and anxiety
CPT/HCPCS: 31500; 31720; 36415; 36430; 36556; 36569; 36600; 51702; 71045; 71046; 71250; 80048; 80053; 80069; 81001; 82330; 82803; 82947; 83519; 83605; 83735; 83880; 84100; 84145; 84484; 85014; 85018; 85025; 85027; 85610; 86255; 86850; 86900; 86901; 86923; 87040; 87070; 87086; 87106; 87205; 87324; 87493; 87507; 92523; 93005; 93010; 93306; 93970; 94002; 94003; 94640; 94660; 94760; 96361; 96365; 96375; 97110; 97163; 97530; 99285-25; C1751; C1769; C9113; J0330; J0696; J1644; J1650; J1940; J1956; J2704; J3010; J3480; J7030; J7040; J7050; J7060; J7120; P9016; P9041; P9046